=== PATIENT | female | born 1950 | race Caucasian/White ===

== ENCOUNTER → 2016-09-20 | Outpatient (CLI) | payer MEDICARE ==
[2016-09-20 14:38] LABS: Basophils % (A) 1 %; CH 30.2; CHCM 32.8; Eosinophils # (A) 0.1 k/uL (0-0.7); Eosinophils % (A) 2 %; HCT 40.8 % (34.0-46.0); HDW 2.46; HGB 12.9 gm/dL (11.4-16.0); Luc # (Auto) 0.07; Luc % (Auto) 2; Lymphocytes # (A) 1.4 k/uL (1.0-4.8); Lymphocytes % (A) 31 %; MCH 29.3 pg (25.0-35.0); MCHC 31.6 g/dL (31.0-37.0); MCV 92.7 fL (80.0-100.0); Mean Platelet Volume 7.3; Monocytes # (A) 0.3 k/uL (0-1.0); Monocytes % (A) 6 %; Neutrophils # (A) 2.7 k/uL (1.3-7.7); Neutrophils % (A) 59 %; RDW 13.4 % (11.5-15.5); WBC 4.6 k/uL (3.8-10.6); WBC (Perox) 4.94
[2016-09-20 15:01] LABS: ALT 35 U/L (9-52); AST 26 U/L (14-36); Alkaline Phosphatase 83 U/L (38-126); Anion Gap 10 mmol/L; Blood Urea Nitrogen 23 mg/dL (7-17); Calcium 9.3 mg/dL (8.4-10.2); Carbon Dioxide 27 mmol/L (22-30); Chloride 108 mmol/L (98-107); Glucose 122 mg/dL (74-99); Non-African American GFR(MDRD) >60 (>60 ml/min/1.73 sqM); Potassium 3.8 mmol/L (3.5-5.1); Sodium 145 mmol/L (137-145); Total Bilirubin 0.9 mg/dL (0.2-1.3); Total Protein 6.3 g/dL (6.3-8.2)
[2016-09-20 15:42] LABS: Vitamin B12 746 pg/mL (239-931)
== END | disposition home or self-care (01) ==
LOC: LABWHC1 13:47
PROVIDERS: ATTEND Nurse Practitioner Acute Care
DX: G35 Multiple sclerosis (principal); E55.9 Vitamin D deficiency, unspecified
CPT/HCPCS: 36415; 80053; 82306; 82607; 84439; 84443; 84481; 85025

== ENCOUNTER → 2016-11-24 | Outpatient (CLI) | payer MEDICARE ==
--- NOTE | 2016-11-24 13:40 | MM ---
Reason for exam: follow-up at short interval from prior study. Last mammogram was performed 6 months ago. History: Patient is postmenopausal and has history of other cancer at age 54. Family history of breast cancer in aunt. MG discontinued stereo core RT of the right breast, May 16, 2014. Benign excisional biopsy of the left breast, 1989. Took estrogen beginning at age 58. Physical Findings: Nurse did not find any significant physical abnormalities on exam. MG 3D Diag Mammo W/Cad RT CC, MLO, and ML view(s) were taken of the right breast. Prior study comparison: June 02, 2016, right breast MG work up mamm w CAD RT. May 26, 2016, bilateral MG screening mammo w CAD. The breast tissue is heterogeneously dense. This may lower the sensitivity of mammography. No significant new findings when compared with previous films. These results were verbally communicated with the patient and result sheet given to the patient on 11/24/16. ASSESSMENT: Benign, BI-RAD 2 RECOMMENDATION: Return to routine screening mammogram schedule for both breasts. Back on schedule.
[2016-11-25 15:15] LABS: HCV Qualitative Result Not detected (Not detected)
== END | disposition home or self-care (01) ==
LOC: RADMAMWWP 12:38
PROVIDERS: ATTEND Family Medicine
DX: R92.2 Inconclusive mammogram (principal); B17.10 Acute hepatitis C without hepatic coma
CPT/HCPCS: 87522; 36415; G0206; G0279

== ENCOUNTER → 2017-02-03 | Outpatient (CLI) | payer MEDICARE ==
--- NOTE | 2017-02-06 19:25 | MR ---
EXAMINATION TYPE: MR brain wo/w con DATE OF EXAM: 02/03/2017 3:26 PM COMPARISON: 11/24/2015 HISTORY: 66-year-old female with unsteady gait, MS, compare to prior TECHNIQUE: Multiplanar, multisequence images of the brain and brainstem is performed without and with utilizing 12 mL intravenous MultiHance gadolinium contrast. Demyelinating disease protocol with add itional Sagittal Flair sequence performed. FINDINGS: T2 Lesions Present : Yes Approximate Number of Lesions: Moderate to severe confluent burden, too numerous to count. Locations Identified : Pericallosal, callosal, callososeptal, periventricular (including Austin's fin gers) juxtacortical, pontine, right middle cerebral peduncle. Size of Reference Lesion(s): 1. Juxtacortical lesion medial right frontal lobe axial image 20, not significantly changed measurin g 10 x 4 mm versus 9 x 4 mm, previously. 2. A vague confluent area in the right centrum semiovale, posterior frontal lobe, image 22 similar s ized but less defined. 3. A juxtacortical lesion in the anterior right parietal lobe, axial image 15 is minimally smaller me asuring 9 x 3 mm versus 11 x 4 mm, previously. Enhancing Lesion(s) Present: No T1 Hypointense Lesion(s) Present: Yes, moderate to severe confluent burden. Change from Prior: Overall, not significantly changed. Diffusion weighted images demonstrate no evidence of a recent infarct or other diffusion abnormality when correlated with the ADC map. Areas of T2 shine through are evident. There is no worrisome extra-axial fluid collection. There is sulcal prominence or moderate generalized supratentorial volume loss. No hydrocephalus. Midline structures demonstrate normal morphology. The craniocervical junction appears within normal limits. Post contrast images demonstrate no abnormal enhancement. The dural venous sinuses appear patent. There is residual mild mucosal thickening along the floors of the maxillary sinuses, improved from pr ior exam. Mild mucosal thickening posterior right ethmoid air cells. Globes appear intact. IMPRESSION: 1. Redemonstrated moderate to severe confluent burden of MS plaques. The exam is overall stable. A fe w reference lesions were selected and may be minimally smaller or less confluent. 2. No enhancing plaques seen. 3. Similar moderate cerebral atrophy.
== END | disposition home or self-care (01) ==
LOC: RADMRIMAIN 14:22
PROVIDERS: ATTEND Nurse Practitioner Acute Care
DX: G35 Multiple sclerosis (principal); G31.9 Degenerative disease of nervous system, unspecified; G93.89 Other specified disorders of brain; M54.2 Cervicalgia
CPT/HCPCS: 70553; A9577

== ENCOUNTER → 2017-02-04 | Outpatient (CLI) | payer MEDICARE ==
--- NOTE | 2017-02-04 15:39 | MR ---
EXAMINATION TYPE: MR cervical spine wo/w con DATE OF EXAM ORDERED: 02/04/2017 3:21 PM HISTORY: G35 MS M54.2 C CERVICALGIA. 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 FINDINGS: Prevertebral soft tissues are normal. Vertebral body height and alignment are maintained. Atlantoaxial relationships are normal. There is a normal craniocervical junction. Signal within the cord is slightly patchy in the sagittal projection. Definite signal abnormality is not identified on the axial images. There is no abnormal e nhancement following gadolinium. At C2-C3 and C3-4, no discrete abnormality is seen. At C4-C5, there is disc space loss and hypertrophic spondylosis both anteriorly and posteriorly. This is progressed somewhat from previous. There is a mixed spondylitic bar present posteriorly deforming the thecal sac with cord contact but without cord compression. Intervertebral foramina are reasonabl y well-maintained. The facets are reasonably well-maintained. There is mild uncovertebral joint disea se. At C5-C6, there is mild disc space loss. The intervertebral foramina are well maintained. There is a diffuse disc displacement. This mildly deforms the thecal sac without cord contact. The facets are un remarkable. There is mild uncovertebral joint disease. At C6-C7, there is disc space loss and disc desiccation. There is a mixed spondylitic bar present pos teriorly deforming the thecal sac without definite cord contact. The facets are unremarkable. There i s mild uncovertebral joint disease. The intervertebral foramina are reasonably well-maintained. At C7-T1, no definite abnormality is seen. IMPRESSION: 1. SLIGHTLY HETEROGENEOUS SIGNAL WITHIN THE CORD, UNCHANGED FROM PREVIOUS WITHOUT DISCRETE PLAQUES. 2. DEGENERATIVE CHANGE DESCRIBED.
== END | disposition home or self-care (01) ==
LOC: RADMRIMAIN 14:28
PROVIDERS: ATTEND Nurse Practitioner Acute Care
DX: M47.812 Spondylosis without myelopathy or radiculopathy, cervical region (principal)
CPT/HCPCS: 72156; A9577

== ENCOUNTER → 2017-12-09 | Outpatient (CLI) | payer MEDICARE ==
--- NOTE | 2017-12-09 12:46 | ECHOF ---
Referral Reason:R07.89 Atypical chest pain MEASUREMENTS -------- HEIGHT: 165.1 cm WEIGHT: 59.0 kg BP: RVIDd: 2.2 cm (< 3.3) IVSd: 0.9 cm (0.6 - 1.1) LVIDd: 4.2 cm (3.9 - 5.3) LVPWd: 1.0 cm (0.6 - 1.1) IVSs: 1.2 cm LVIDs: 2.8 cm LVPWs: 1.1 cm LA Diam: 3.1 cm (2.7 - 3.8) Ao Diam: 2.9 cm (2.0 - 3.7) AV Cusp: 1.5 cm (1.5 - 2.6) LA Diam: 2.7 cm (2.7 - 3.8) MV EXCURSION: 15.618 mm (> 18.000) MV EF SLOPE: 58 mm/s (70 - 150) EPSS: 1.2 cm MV E Campos: 0.46 m/s MV DecT: 302 ms MV A Campos: 0.66 m/s MV E/A Ratio: 0.70 RAP: 5.00 mmHg RVSP: 12.26 mmHg FINDINGS -------- Sinus rhythm. This was a technically good study. LV size, wall thickness and systolic function are normal, with an EF greater than 55%. The left librado tricular size is normal. The right ventricle is normal in size. The left atrial size is normal. The right atrial size is normal. The aortic valve was not well visualized. Mild mitral regurgitation is present. Mild tricuspid regurgitation present. There is no evidence of pulmonary hypertension. The right v entricular systolic pressure, as measured by Doppler, is 12.26mmHg. There is no pulmonic regurgitation present. The aortic root size is normal. There is no pericardial effusion. CONCLUSIONS -------- 1. LV size, wall thickness and systolic function are normal, with an EF greater than 55%. 2. The left ventricular size is normal. 3. The aortic valve was not well visualized. 4. Mild mitral regurgitation is present. 5. Mild tricuspid regurgitation present. 6. There is no evidence of pulmonary hypertension. 7. The right ventricular systolic pressure, as measured by Doppler, is 12.26mmHg. 8. There is no pulmonic regurgitation present. 9. The aortic root size is normal. 10. There is no pericardial effusion. [employer]ATION HELPER: Alma Delia Vanegas RDCS
--- NOTE | 2017-12-09 12:58 | EST ---
EXERCISE STRESS AGE: 67 SEX: F HT: 65" WT: 130 PROTOCOL: Viktor Cardiolite stress test. STAGE: I DURATION OF EXERCISE: 2.41 HEART RATE REST: 77 BLOOD PRESSURE REST: 153/98 MAXIMUM HEART RATE ACHIEVED: 126 MAXIMUM BLOOD PRESSURE: 201/102 85% MPHR: 131 100% MPHR: 154 METS: 3.6 INDICATIONS: Atypical chest pain. CLINICAL INFORMATION: Baseline EKG revealed normal sinus rhythm without significant ST-T changes. Patient walked for 2 minute 41 seconds. Developed fatigue and shortness of breath. Maximal heart rate was 126 beats per minute. Maximal blood pressure was 201/102. Patient got exhausted, tired and short of breath. This is an inconclusive stress test because of inadequate chronotropic response. Excess capacity was extremely limited. If ischemia is suspected, she will benefit from a pharmacological stress test. MMODL / IJN: [id number] /
== END | disposition home or self-care (01) ==
LOC: RADNMMAIN 10:49
PROVIDERS: ATTEND Family Medicine
DX: I08.1 Rheumatic disorders of both mitral and tricuspid valves (principal); R07.89 Other chest pain; R06.02 Shortness of breath; R53.83 Other fatigue
CPT/HCPCS: 93017; 93306

== ENCOUNTER → 2018-02-07 | Outpatient (CLI) | payer MEDICARE ==
--- NOTE | 2018-02-07 13:35 | MR ---
MRI BRAIN WITH CONTRAST CLINICAL HISTORY: MS follow-up TECHNIQUE: Multiplanar, multisequence imaging of the brain and brainstem is performed without and wit h IV contrast, cc of Gadolinium is administered intravenously. Demyelinating disease protocol with a dditional Sagittal Flair sequence performed. Comparison: 02/03/2017 FINDINGS: T2 Lesions Present : Yes Approximate Number of Lesions: Moderate to severe confluent burden, too numerous to count. Locations Identified : Pericallosal, callosal, callososeptal, periventricular ( including Austin's fi ngers) juxtacortical, pontine, right middle cerebral peduncle Size of Largest Lesion(s): 1. Largest discrete lesion high right frontal lobe measures 1.3 cm versus 1.3 cm image 24. 2 largest discrete lesion left cerebral hemisphere left temporal region measuring 1.0 cm unchanged fr om prior study. Enhancing Lesion(s) Present: Yes, No, N/A Change from Prior: Stable, Increase in number, decrease Diffusion weighted images demonstrate no evidence of a recent infarct or other diffusion abnormality. There is no worrisome extra-axial fluid collection. The ventricular system and cisternal spaces ar e normal in size and appearance. The brain volume is age appropriate. Midline structures demonstrate normal morphology. The craniocervical junction appears within normal limits. Post contrast images demonstrate no abnormal enhancement. The dural venous sinuses appear pa tent. The visualized sinuses are clear and the globes are intact. IMPRESSION: 1. Stable examination with moderate to severe confluent burden of MS plaques. 2. No acute or enhancing plaques are identified. 3. Cerebral atrophy.
== END | disposition home or self-care (01) ==
LOC: RADMRIMAIN 11:49
PROVIDERS: ATTEND Psychiatry & Neurology Neurology
DX: G35 Multiple sclerosis (principal); G31.9 Degenerative disease of nervous system, unspecified
CPT/HCPCS: 82565; 70553; A9581

== ENCOUNTER → 2018-03-17 | Outpatient (CLI) | payer MEDICARE ==
--- NOTE | 2018-03-18 02:48 | MR ---
MRI CERVICAL SPINE and thoracic spine: CLINICAL HISTORY: Follow-up demyelinating disease. TECHNIQUE: Multiplanar, multisequence imaging of the cervical spine and thoracic spine is performed w ithout contrast. . Patient was not cooperative for the entire completion of the exam including axial thoracic images. COMPARISON: Cervical spine 02/04/2017 FINDINGS: The cervical vertebra have normal alignment. There is moderate narrowing of C4-5 disc space with spurring of the endplates anteriorly and posteriorly. There is mild narrowing at C5-6 and C6-7 disc spaces. There is some subtle increased signal on the T2 images in the posterior cervical cord at the C5 level . There is slight increased signal in the cord on the right side at the C2 level. There is increased signal within the cord at T4 level that appears new or increased. The remainder of the thoracic spinal cord has fairly normal signal pattern. There is no thoracic spinal stenosis. The re is no thoracic disc herniation or compression fracture. There is mild anterior spurring in the mid and lower thoracic spine. There is no thoracic paraspinal mass. Thoracic and cervical neural foramin a are fairly well-maintained. IMPRESSION: There are mild spondylotic changes in the cervical and thoracic spine. There is posterior spurring and disc herniation at C4-5. There is developmentally adequate canal and no resultant spinal stenosis. The canal measures 8 mm. There are scattered areas of increased signal in the cervical cord and also thoracic spinal cord at T 4 level suggestive of demyelinating disease. T4 abnormality appears increased compared to previous MR scan. The other foci appear not significantly different.
== END | disposition home or self-care (01) ==
LOC: RADMRIMAIN 19:26
PROVIDERS: ATTEND Psychiatry & Neurology Neurology
DX: M47.893 Other spondylosis, cervicothoracic region (principal); M50.221 Other cervical disc displacement at C4-C5 level; G35 Multiple sclerosis
CPT/HCPCS: 72141; 72146

== ENCOUNTER → 2018-03-31 | Outpatient (CLI) | payer MEDICARE ==
[2018-03-31 20:26] LABS: Hepatitis B Surface AB- Quant 3.5 mIU/mL
== END | disposition home or self-care (01) ==
LOC: LABWHC1 12:33
PROVIDERS: ATTEND Psychiatry & Neurology Neurology
DX: G35 Multiple sclerosis (principal)
CPT/HCPCS: 36415; 86704; 86706; 87340

== ENCOUNTER → 2018-06-06 | Outpatient (CLI) | payer MEDICARE ==
--- NOTE | 2018-06-08 11:44 | MM ---
Reason for exam: screening (asymptomatic). Last mammogram was performed 1 year ago. History: Patient is postmenopausal and has history of other cancer at age 54. Family history of breast cancer in aunt. MG discontinued stereo core RT of the right breast, May 16, 2014. Benign excisional biopsy of the left breast, 1989. Took estrogen beginning at age 58. Physical Findings: A clinical breast exam by your physician is recommended on an annual basis and results should be correlated with mammographic findings. MG 3D Screening Mammo W/Cad Bilateral CC and MLO view(s) were taken. Prior study comparison: June 03, 2017, bilateral MG 3d screening mammo w/cad. November 24, 2016, right breast MG 3d diag mammo w/cad RT. The breast tissue is heterogeneously dense. This may lower the sensitivity of mammography. No significant changes when compared with prior studies. ASSESSMENT: Negative, BI-RAD 1 RECOMMENDATION: Routine screening mammogram of both breasts in 1 year.
== END | disposition home or self-care (01) ==
LOC: RADMAMWWP 12:30
PROVIDERS: ATTEND Family Medicine
DX: Z12.31 Encounter for screening mammogram for malignant neoplasm of breast (principal)
CPT/HCPCS: 77063; 77067

== ENCOUNTER → 2018-11-06 | Outpatient (CLI) | payer MEDICARE ==
[2018-11-06 15:11] LABS: Appearance,Urine Cloudy (Clear); Bacteria,Urine Few /hpf; Bilirubin,Urine Negative (Negative); Blood,Urine Negative (Negative); Color,Urine Yellow; Glucose,Urine (UA) Negative (Negative); Ketones,Urine Negative (Negative); Leukocyte Esterase,Urine Large (Negative); Mucus,Urine Few /hpf; Nitrite,Urine Positive (Negative); Protein,Urine Trace (Negative); RBC,Urine 9 /hpf (0-5); Squamous Epithelial Cell,Urine 2 /hpf (0-4); Urobilinogen,Urine <2.0 mg/dL (<2.0); WBC,Urine 122 /hpf (0-5)
[2018-11-06 15:17] LABS: Basophils % (A) 0 %; Eosinophils # (A) 0.1 k/uL (0-0.7); Eosinophils % (A) 1 %; HCT 43.9 % (34.0-46.0); Lymphocytes % (A) 31 %; MCH 29.5 pg (25.0-35.0); MCHC 31.8 g/dL (31.0-37.0); MCV 92.7 fL (80.0-100.0); Mean Platelet Volume 7.1; Monocytes # (A) 0.4 k/uL (0-1.0); Monocytes % (A) 6 %; Neutrophils # (A) 3.7 k/uL (1.3-7.7); Neutrophils % (A) 59 %; Platelet Count 261 k/uL (150-450); RBC 4.73 m/uL (3.80-5.40); RDW 13.6 % (11.5-15.5); WBC 6.3 k/uL (3.8-10.6)
[2018-11-06 18:48] LABS: Albumin 4.4 g/dL (3.80-4.90); Albumin/Globulin Ratio 2.44 (1.60-3.17); Anion Gap 12.4 mmol/L (4.00-12.00); Calcium 9.8 mg/dL (8.7-10.3); Carbon Dioxide 27.6 mmol/L (21.6-31.8); Globulin 1.8 g/dL (1.6-3.3); Potassium 3.8 mmol/L (3.5-5.5); Total Bilirubin 0.6 mg/dL (0.2-1.2); Total Protein 6.2 g/dL (6.2-8.2)
== END | disposition home or self-care (01) ==
LOC: LABWHC1 13:45
PROVIDERS: ATTEND Psychiatry & Neurology Neurology
DX: Z51.81 Encounter for therapeutic drug level monitoring (principal); Z79.899 Other long term (current) drug therapy
CPT/HCPCS: 36415; 80053; 81001; 85025; 87086

== ENCOUNTER → 2018-12-07 | Outpatient (CLI) | payer MEDICARE ==
[2018-12-07 11:25] LABS: Basophils % (A) 0 %; Eosinophils # (A) 0.1 k/uL (0-0.7); Eosinophils % (A) 2 %; HCT 41.5 % (34.0-46.0); HGB 13.4 gm/dL (11.4-16.0); Lymphocytes # (A) 1.4 k/uL (1.0-4.8); Lymphocytes % (A) 28 %; MCH 29.6 pg (25.0-35.0); MCHC 32.2 g/dL (31.0-37.0); MCV 92.1 fL (80.0-100.0); Mean Platelet Volume 7.3; Monocytes # (A) 0.3 k/uL (0-1.0); Monocytes % (A) 6 %; Neutrophils # (A) 3.1 k/uL (1.3-7.7); Neutrophils % (A) 62 %; Platelet Count 269 k/uL (150-450); RBC 4.51 m/uL (3.80-5.40)
[2018-12-07 17:18] LABS: Albumin 4.2 g/dL (3.80-4.90); Albumin/Globulin Ratio 2.63 (1.60-3.17); Anion Gap 11.2 mmol/L (4.00-12.00); Calcium 9.5 mg/dL (8.7-10.3); Carbon Dioxide 24.8 mmol/L (21.6-31.8); Globulin 1.6 g/dL (1.6-3.3); Total Bilirubin 0.9 mg/dL (0.2-1.2); Total Protein 5.8 g/dL (6.2-8.2)
== END ==
LOC: LABWHC1 10:25
PROVIDERS: ATTEND Psychiatry & Neurology Neurology
DX: G35 Multiple sclerosis (principal); T50.905A Adverse effect of unspecified drugs, medicaments and biological substances, initial encounter
CPT/HCPCS: 36415; 80053; 85025

== ENCOUNTER 2019-03-03 12:28 | Emergency (ER) | payer MEDICARE ==
[2019-03-03 12:56] VITALS: RESP 16; TEMP 97.6
[2019-03-03] MEDS ORDERED: LIDOCAINE 1% INJ 10MG/ML (20 ML MDV) SQ ONE (13:46)
[2019-03-03] MEDS ORDERED: DIPH,PERTUS(ACELL)TETVAC-LF 0.5 ML VIAL IM ONE (14:30)
--- NOTE | 2019-03-03 14:31 | ED ---
Fall HPI - General Chief Complaint: Fall Stated Complaint: fall Time Seen by Provider: 03/03/19 13:29 Source: patient Mode of arrival: wheelchair - History of Present Illness Initial Comments: Patient is a 68-year-old female with history of multiple sclerosis who presents emergency Department after fall and laceration on the forehead. Patient reports earlier today she was walking and her daughter when she tripped and fell on the ground. Patient denies loss of consciousness time of incident. Patient reports the pain is localized to the left frontal region and does not radiate anywhere. Patient reports the pain is throbbing and rates it a 5. Patient reports a laceration in the region the make contact with the ground. Patient is not on blood thinners. Patient is unaware of her tetanus status. Patient denies taking medication to relieve the pain. Patient denies nausea, vomiting, chest pain, shortness of breath, paresthesia or gait instability. - Related Data Home Medications Medication Instructions Recorded Confirmed Tolterodine ER [Detrol LA] 4 mg PO DAILY 03/11/14 01/01/19 Simvastatin [Zocor] 20 mg PO HS 09/29/15 01/01/19 Fesoterodine Fumarate [Toviaz] 8 mg PO DAILY 12/18/18 01/01/19 Ocrevus 30 mg pe PO DAILY 12/18/18 01/01/19 Oxybutynin Xl [Ditropan XL] 5 mg PO TID 12/18/18 01/01/19 Allergies Allergy/AdvReac Type Severity Reaction Status Date / Time No Known Allergies Allergy Verified 03/03/19 12:56 Review of Systems ROS Statement: Those systems with pertinent positive or pertinent negative responses have been documented in the HPI. ROS Other: All systems not noted in ROS Statement are negative. Past Medical History Past Medical History: Neurologic Disorder Additional Past Medical History / Comment(s): MS History of Any Multi-Drug Resistant Organisms: None Reported Past Surgical History: Section, Orthopedic Surgery, Tonsillectomy Additional Past Surgical History / Comment(s): left knee replacement Past Anesthesia/Blood Transfusion Reactions: No Reported Reaction Past Psychological History: No Psychological Hx Reported Smoking Status: Former smoker General Exam Limitations: no limitations General appearance: alert, in no apparent distress Head exam: Present: normocephalic. Absent: atraumatic (Hematoma on the left frontal region. 1.5 cm laceration.), normal inspection Eye exam: Present: normal appearance, PERRL, EOMI Pupils: Present: normal accommodation ENT exam: Present: normal exam, normal oropharynx, mucous membranes moist Neck exam: Present: normal inspection, full ROM. Absent: tenderness Respiratory exam: Present: normal lung sounds bilaterally Cardiovascular Exam: Present: regular rate, normal rhythm, normal heart sounds Extremities exam: Present: normal inspection, full ROM Back exam: Present: normal inspection, full ROM Neurological exam: Present: alert, oriented X3 Psychiatric exam: Present: normal affect, normal mood Skin exam: Present: warm, intact, normal color Course Vital Signs 03/03/19 03/03/19 12:53 15:19 Temperature 97.6 F Pulse Rate 59 L 69 Respiratory 16 16 Rate Blood Pressure 138/70 133/54 O2 Sat by Pulse 100 96 Oximetry Procedures - Laceration Laceration #1 Consent Obtained: verbal consent Indication: laceration Site: scalp Size (cm): 2 Description: linear Depth: simple, single layer Anesthetic Used: lidocaine 1% Anesthesia Technique: local infiltration Amount (mls): 5 Pre-repair: irrigated extensively Type of Sutures: nylon Size of Sutures: 4-0 Number of Sutures: 3 Technique: simple, interrupted Patient Tolerated Procedure: well Medical Decision Making - Medical Decision Making Patient is a 68-year-old female presents to the emergency Department after fall laceration to her head. Tetanus prophylaxis was administered. The laceration site was sutured using 3 sutures. At this time a CT is not warranted. Patient advised to return to emergency department for suture removal in 10-14 days. Patient advised to return to emergency department if symptoms worsen. Patient advised to follow primary care. Case discussed with physician. Disposition Clinical Impression: Laceration Disposition: HOME SELF-CARE Condition: Stable Instructions (If sedation given, give patient instructions): Care For Your Stitches (DC), Laceration (DC), Fall Prevention for Older Adults (ED) Additional Instructions: Please follow proper wound care structures. Please return to emergency department in 10-14 days for suture removal. Please follow up with primary care. Patient to emergency department if symptoms worsen. Is patient prescribed a controlled substance at d/c from ED?: No Referrals: Shady Vivas DO [Primary Care Provider] - 1-2 days Time of Disposition: 14:31
[2019-03-03 16:54] VITALS: BP 133/54; PULSE 69
== END 2019-03-03 15:19 | disposition home or self-care (01) ==
LOC: EC 12:28
DX: S01.01XA Laceration without foreign body of scalp, initial encounter (principal); G35 Multiple sclerosis; Z23 Encounter for immunization; Z96.652 Presence of left artificial knee joint; Z87.891 Personal history of nicotine dependence; Z79.899 Other long term (current) drug therapy; W01.0XXA Fall on same level from slipping, tripping and stumbling without subsequent striking against object, initial encounter; Y93.01 Activity, walking, marching and hiking; Y92.89 Other specified places as the place of occurrence of the external cause
CPT/HCPCS: 12001; 90471; 90715; 99282

== ENCOUNTER → 2019-04-07 | Outpatient (CLI) | payer MEDICARE ==
--- NOTE | 2019-04-09 00:16 | MR ---
EXAMINATION TYPE: MR brain/cspine wo/w DATE OF EXAM: 04/07/2019 COMPARISON: 01/29/1918 and 03/17/2018 HISTORY: MS TECHNIQUE: Multiplanar, multisequence images of the brain and brainstem and cervical spine is performed without and with IV contrast, utilizing 6 mL intravenous Gadavist . FINDINGS: There is coalescent patchy increased signal in the periventricular white matter with multip le nodular foci that measure up to 1.5 cm. There is no midline shift. There is no mass effect. There is no sign of intracranial hemorrhage. There is no evidence of cortical infarct. There are white farooq er lesions extending into the melissa-white matter junction of the posterior frontal lobes bilaterally. There are few smaller scattered foci of increased signal on the FLAIR images at the melissa-white matter junction of the temporal and occipital lobes. The brainstem is intact. There is small fluid level in the posterior nasopharynx. There is mild thinn ing of the corpus callosum. Sella turcica is intact. There is mild mucosal thickening in the frontal sinuses. Cervical vertebra have normal alignment. There is some degenerative disc space narrowing at C4-5 C5-6 C6-7 with spurring of the endplates and small posterior disc herniations at C4-5 and C6-7. The canal is narrowed to 7 mm at C4-5 which is the narrowest point. There is mild increased signal within the cervical cord at the C5-6 level on the T2 images. I see no pathologic cord enhancement. There is no bony destructive process. IMPRESSION: Extensive white matter changes in the brain as above consistent with demyelinating diseas e unchanged compared to previous exam of 01/29/1918. No evidence of any significant new disease. Spondylotic changes in the cervical spine with a mild 7 mm C4-5 spinal stenosis unchanged compared to old exam. Increased signal in the cervical cord at the C5-6 level in the segment without narrowing o f the spinal canal is consistent with demyelinating disease unchanged compared to old exam.
== END | disposition home or self-care (01) ==
LOC: RADMRIMAIN 11:12
PROVIDERS: ATTEND Psychiatry & Neurology Neurology
DX: G37.9 Demyelinating disease of central nervous system, unspecified (principal); R90.89 Other abnormal findings on diagnostic imaging of central nervous system; M48.02 Spinal stenosis, cervical region; R27.0 Ataxia, unspecified
CPT/HCPCS: 70553; 72156; A9585

== ENCOUNTER → 2019-05-25 | Outpatient (CLI) | payer MEDICARE ==
--- NOTE | 2019-05-27 14:54 | MR ---
EXAMINATION TYPE: MR thoracic spine wo con DATE OF EXAM: 05/25/2019 COMPARISON: MRI of thoracic spine March 17, 2018 HISTORY: Multiple sclerosis TECHNIQUE: Multiplanar, multisequence imaging of thoracic spine is performed without contrast, IV con trast is not given as patient refused. FINDINGS: There is slight S-shaped scoliotic curvature levoconvex centered upper thoracic spine and d extroconvex centered upper lumbar spine redemonstrated. Spinal cord shows persistent normal caliber a nd course. There is persistent ovoid T2 hyperintense focus sagittal image 8 centered T4 level. No def initive new cord lesions. Mild anterior wedging T12 level redemonstrated otherwise vertebral body hei ghts remain satisfactory. Some reversal of normal curvature at thoracolumbar junction redemonstrated on sagittal images. Bone marrow signal intensity is maintained. Mild to moderate multilevel anterior spurring again seen. Review of the axial images shows no significant spinal canal stenosis or neural foraminal narrowing a t any thoracic level. Suspected T4 spinal cord lesion not as well seen on axial images. Visualized th orax and upper abdomen show no suspicious abnormality. IMPRESSION: Persistent demyelinating disease involvement suspected T4 level. No definitive new lesion s. Patient refused IV contrast as ordered.
== END | disposition home or self-care (01) ==
LOC: RADMRIMAIN 16:06
PROVIDERS: ATTEND Psychiatry & Neurology Neurology
DX: G35 Multiple sclerosis (principal); R27.0 Ataxia, unspecified
CPT/HCPCS: 72146

== ENCOUNTER → 2019-07-16 | Outpatient (CLI) | payer MEDICARE ==
--- NOTE | 2019-07-17 10:37 | MM ---
Reason for exam: screening (asymptomatic). Last mammogram was performed 1 year and 1 month ago. History: Patient is postmenopausal and has history of other cancer at age 54. Family history of breast cancer in aunt. MG discontinued stereo core RT of the right breast, May 16, 2014. Benign excisional biopsy of the left breast, 1989. Took estrogen beginning at age 58. Physical Findings: A clinical breast exam by your physician is recommended on an annual basis and results should be correlated with mammographic findings. MG 3D Screening Mammo W/Cad Bilateral CC and MLO view(s) were taken. Prior study comparison: June 06, 2018, bilateral MG 3d screening mammo w/cad. June 03, 2017, bilateral MG 3d screening mammo w/cad. The breast tissue is heterogeneously dense. This may lower the sensitivity of mammography. There are benign appearing round dystrophic calcifications in the left breast. There is no discrete abnormality. ASSESSMENT: Benign, BI-RAD 2 RECOMMENDATION: Routine screening mammogram of both breasts in 1 year.
== END | disposition home or self-care (01) ==
LOC: RADMAMWWP 10:51
PROVIDERS: ATTEND Family Medicine
DX: Z12.31 Encounter for screening mammogram for malignant neoplasm of breast (principal)
CPT/HCPCS: 77063; 77067

== ENCOUNTER → 2020-04-29 | Outpatient (CLI) | payer MEDICARE ==
[2020-04-29 13:35] LABS: Basophils % (A) 0 %; Eosinophils # (A) 0.1 k/uL (0-0.7); Eosinophils % (A) 2 %; HCT 42.3 % (34.0-46.0); HGB 13.5 gm/dL (11.4-16.0); Lymphocytes # (A) 1.8 k/uL (1.0-4.8); Lymphocytes % (A) 29 %; MCH 30.1 pg (25.0-35.0); MCHC 31.8 g/dL (31.0-37.0); MCV 94.8 fL (80.0-100.0); Mean Platelet Volume 6.7; Monocytes # (A) 0.4 k/uL (0-1.0); Monocytes % (A) 7 %; Neutrophils # (A) 3.6 k/uL (1.3-7.7); Neutrophils % (A) 60 %; Platelet Count 293 k/uL (150-450); RBC 4.47 m/uL (3.80-5.40); RDW 13.1 % (11.5-15.5)
[2020-04-29 22:34] LABS: African American GFR (CKD) 87.8 (60.0-200.0); Albumin 4.4 g/dL (3.80-4.90); Albumin/Globulin Ratio 2.2 (1.60-3.17); Anion Gap 10.5 mmol/L (4.00-12.00); BUN/Creat Ratio 17.5 Ratio (12.00-20.00); Calcium 9.4 mg/dL (8.7-10.3); Carbon Dioxide 24.5 mmol/L (21.6-31.8); Non-African American GFR(CKD) 75.8 (60.0-200.0); Potassium 4.6 mmol/L (3.5-5.5); Total Bilirubin 0.7 mg/dL (0.2-1.2); Total Protein 6.4 g/dL (6.2-8.2)
== END | disposition home or self-care (01) ==
LOC: LABWHC1 11:39
PROVIDERS: ATTEND Psychiatry & Neurology Neurology
DX: Z51.81 Encounter for therapeutic drug level monitoring (principal)
CPT/HCPCS: 36415; 80053; 85025

== ENCOUNTER → 2020-07-21 | Outpatient (CLI) | payer MEDICARE ==
--- NOTE | 2020-07-22 08:52 | BD ---
EXAMINATION TYPE: Axial Bone Density DATE OF EXAM: 07/21/2020 COMPARISON: NONE CLINICAL HISTORY: Height: 62 IN Weight: 134 LBS FRAX RISK QUESTIONS: Secondary Osteoporosis: 3. Menopause before 45: PARTIAL HYST AGE 44 RISK FACTORS HISTORY OF: Active: LIMITED Postmenopausal woman: PARTIAL HYST AGE 44 Take estrogen and/or progesterone medications: NOT NOW How long: TOOK FROM AGE [age] MEDICATIONS: Additional Medications: VIT D, MULTI VIT, BLADDER MEDS, EXAM MEASUREMENTS: Bone mineral densitometry was performed using the [employer] System. Bone mineral density as measured about the Lumbar spine is: ----- L1-L4(G/cm2): 1.025 T Score Values are as follows: ----- L2: -1.7 ----- L3: -0.8 ----- L4: -0.4 ----- L1-L4: -1.3 Bone mineral density BASELINE Bone mineral density about the R hip (g/cm2): 0.700 Bone mineral density about the L hip (g/cm2): 0.692 T Score values are as follows: -----R Neck: -2.4 -----L Neck: -2.5 -----R Total: -2.9 -----L Total: -3.1 Bone mineral density BASELINE IMPRESSION: Osteoporosis. NOTE: T-SCORE=SD OF THE YOUNG ADULT MEAN.
--- NOTE | 2020-07-22 13:32 | MM ---
Reason for exam: screening (asymptomatic). Last mammogram was performed 1 year ago. History: Patient is postmenopausal and has history of other cancer at age 54. Family history of breast cancer in aunt. MG discontinued stereo core RT of the right breast, May 16, 2014. Benign excisional biopsy of the left breast, 1989. Took estrogen beginning at age 58. Physical Findings: A clinical breast exam by your physician is recommended on an annual basis and results should be correlated with mammographic findings. MG 3D Screening Mammo W/Cad Bilateral CC and MLO view(s) were taken. Prior study comparison: July 16, 2019, bilateral MG 3d screening mammo w/cad. June 06, 2018, bilateral MG 3d screening mammo w/cad. The breast tissue is heterogeneously dense. This may lower the sensitivity of mammography. Nodular asymmetric density central anterior right CC view is more defined. ASSESSMENT: Incomplete: need additional imaging evaluation, BI-RAD 0 RECOMMENDATION: Special view mammogram of the right breast. (3D) If lesion persists on supplemental views, image directed ultrasound is recommended. [facility] will attempt to contact patient to return for supplemental views and ultrasound if indicated.
== END | disposition home or self-care (01) ==
LOC: RADMAMWWP 14:07
PROVIDERS: ATTEND Family Medicine
DX: Z12.31 Encounter for screening mammogram for malignant neoplasm of breast (principal); M81.0 Age-related osteoporosis without current pathological fracture
CPT/HCPCS: 77063; 77067; 77080

== ENCOUNTER → 2020-08-06 | Outpatient (CLI) | payer MEDICARE ==
--- NOTE | 2020-08-06 10:53 | MM ---
Reason for exam: additional evaluation requested from abnormal screening. Last mammogram was performed 1 month ago. History: Patient is postmenopausal and has history of other cancer at age 54. Family history of breast cancer in aunt. MG discontinued stereo core RT of the right breast, May 16, 2014. Benign excisional biopsy of the left breast, 1989. Took estrogen beginning at age 58. Physical Findings: Nurse did not find any significant physical abnormalities on exam. MG 3D Work Up W/Cad RT Spot compression CC, spot compression MLO, and LM view(s) were taken of the right breast. Prior study comparison: July 21, 2020, bilateral MG 3d screening mammo w/cad. July 16, 2019, bilateral MG 3d screening mammo w/cad. There is no discrete abnormality including area of concern. These results were verbally communicated with the patient and result sheet given to the patient on 08/06/20. ASSESSMENT: Negative, BI-RAD 1 RECOMMENDATION: Return to routine screening mammogram schedule for both breasts.
== END | disposition home or self-care (01) ==
LOC: RADMAMWWP 09:59
PROVIDERS: ATTEND Family Medicine
DX: R92.8 Other abnormal and inconclusive findings on diagnostic imaging of breast (principal)
CPT/HCPCS: 77065; G0279; 77061

== ENCOUNTER 2021-03-27 20:13 | Emergency (ER) | payer OTHER, MEDICARE ==
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
[2021-03-27] MEDS ORDERED: ACET/COD 300 MG/30 MG STARTER PACK 6 TAB BTL PO STA (21:28)
[2021-03-27 21:45] VITALS: BP 160/89; PULSE 75; RESP 18; TEMP 98.2
== END 2021-03-27 21:45 | disposition home or self-care (01) ==
LOC: EC 20:13
DX: S63.501A Unspecified sprain of right wrist, initial encounter (principal); V89.2XXA Person injured in unspecified motor-vehicle accident, traffic, initial encounter; Z87.891 Personal history of nicotine dependence
CPT/HCPCS: 70450; 72125; 99284

== ENCOUNTER → 2021-04-10 | Outpatient (CLI) | payer OTHER ==
--- NOTE | 2021-04-10 13:19 | XR ---
EXAMINATION TYPE: XR hand complete RT DATE OF EXAM: 04/10/2021 COMPARISON: NONE HISTORY: Pain TECHNIQUE: Three views are submitted. FINDINGS: The osseous structures are intact. Severe arthropathy first carpometacarpal joint. Diffuse osteopenia . Arthropathy of all DIP joints. No erosive changes. Arthropathy of the radial ulnar joint and radioc arpal joint and first MCP joint. IMPRESSION: 1. No definite acute fracture or dislocation if symptoms persist, follow-up study in 7 to 10 days wo uld be suggested to severe arthropathy first carpal metacarpal joint in a pattern typical of osteoart hritis.
--- NOTE | 2021-04-10 13:20 | XR ---
EXAMINATION TYPE: XR wrist complete RT DATE OF EXAM: 04/10/2021 COMPARISON: NONE HISTORY: Pain TECHNIQUE: Four views submitted. FINDINGS: The osseous structures are intact. Severe arthropathy of the first carpal metacarpal joint with diffu se osteopenia. Arthropathy of the first MCP joint and radioulnar joint.. IMPRESSION: 1. No definite acute fracture or dislocation if symptoms persist, follow-up study in 7 to 10 days wo uld be suggested
== END | disposition home or self-care (01) ==
LOC: RADXRMAIN 12:36
PROVIDERS: ATTEND Family Medicine
DX: M18.11 Unilateral primary osteoarthritis of first carpometacarpal joint, right hand (principal); M85.841 Other specified disorders of bone density and structure, right hand

== ENCOUNTER → 2021-06-01 | Outpatient (CLI) | payer MEDICARE ==
[2021-06-01 20:23] LABS: Basophils # (A) 0.01 X 10*3/uL (0.00-0.10); Basophils % (A) 0.1 %; Eosinophils # (A) 0.11 X 10*3/uL (0.04-0.35); Eosinophils % (A) 1.6 %; HCT 40.9 % (37.2-46.3); Lymphocytes # (A) 1.87 X 10*3/uL (0.90-5.00); Lymphocytes % (A) 27.1 %; MCH 30.4 pg (27.0-32.0); MCHC 31.8 g/dL (32.0-37.0); MCV 95.8 fL (80.0-97.0); Mean Platelet Volume 9.8 fL (9.5-12.2); Monocytes # (A) 0.72 X 10*3/uL (0.20-1.00); Monocytes % (A) 10.4 %; Neutrophils # (A) 4.17 X 10*3/uL (1.80-7.70); Neutrophils % (A) 60.5 %; Platelet Count 272 X 10*3/uL (140-440); RBC 4.27 X 10*6/uL (4.10-5.20); RDW 13.2 % (11.5-14.5)
[2021-06-01 21:59] LABS: African American GFR (CKD) 102.5 (60.0-200.0); Albumin 4.3 g/dL (3.80-4.90); Albumin/Globulin Ratio 2.15 (1.60-3.17); Anion Gap 7.8 mmol/L (4.00-12.00); BUN/Creat Ratio 17.14 Ratio (12.00-20.00); Calcium 9.4 mg/dL (8.7-10.3); Carbon Dioxide 28.2 mmol/L (21.6-31.8); Non-African American GFR(CKD) 88.4 (60.0-200.0); Potassium 4.3 mmol/L (3.5-5.5); Total Bilirubin 1.1 mg/dL (0.2-1.2); Total Protein 6.3 g/dL (6.2-8.2)
[2021-06-01 22:08] LABS: T4, Free (Free Thyroxine) 1.1 ng/dL (0.80-1.80)
== END | disposition home or self-care (01) ==
LOC: LABWHC1 11:01
PROVIDERS: ATTEND Psychiatry & Neurology Neurology
DX: E53.9 Vitamin B deficiency, unspecified (principal); G35 Multiple sclerosis; T50.995A Adverse effect of other drugs, medicaments and biological substances, initial encounter; R53.83 Other fatigue
CPT/HCPCS: 36415; 80053; 82306; 82607; 84439; 84443; 85025

== ENCOUNTER → 2021-07-21 | Outpatient (CLI) | payer MEDICARE ==
--- NOTE | 2021-07-21 14:29 | MR ---
EXAMINATION TYPE: MR brain/cspine wo/w DATE OF EXAM: 07/21/2021 COMPARISON: MRI Brain and cervical spine with and without contrast 04/07/2019. HISTORY: MS, weakness. TECHNIQUE: Multiplanar, multisequence images of the brain and brainstem is performed without and with IV contras t, utilizing 6 mL intravenous Gadavist gadolinium contrast is administered intravenously. Demyelinat ing disease protocol with additional Sagittal Flair sequence performed. FINDINGS: T2 Lesions Present : Yes Approximate Number of Lesions: Difficult to accurately count due to focal and confluent appearance Locations Identified : Greatest confluent appearance deep and periVentricular level redemonstrated. Size of Reference Lesion(s): 1. 1.4 x 0.7 x 1.2 cm high deep right frontal lesion on axial image 24 and sagittal image 17 stable Enhancing Lesion(s) Present: No T1 Hypointense Lesion(s) Present: Yes Change from Prior: Stable, Increase in number, decrease Diffusion weighted images demonstrate no evidence of a recent infarct or other diffusion abnormality. There is no worrisome extra-axial fluid collection. The ventricular system and cisternal spaces ar e normal in size and appearance. The brain volume is age appropriate. Midline structures demonstrate normal morphology. The craniocervical junction appears within normal limits. Post contrast images demonstrate no abnormal enhancement. The dural venous sinuses appear pa tent. Small mucous retention cyst or polyp in inferior right maxillary sinus redemonstrated. IMPRESSION: Fairly severe nonspecific white matter changes redemonstrated. No new enhancing lesions c learly seen. MRI CERVICAL SPINE: FINDINGS: Sagittal images of the cervical spine show the craniocervical junction to the main within n ormal limits. There are subtle area of increased signal in the posterior aspect of the spinal cord at C5-C6 level sagittal image 7 which is similar to prior. Vertebral alignment is stable and straighte sharmin. The vertebral body heights are normal. Moderate disc space narrowing and spurring C4-C5 level . Mild disc space narrowing and moderate anterior spurring C6-C7 level The bone marrow signal intens ity is within normal limits. No abnormal enhancement or enhancing lesions. Axial images show C2-C3 levels remain within normal limits. Axial images at C3-C4 level redemonstrated uncovertebral facet degenerative changes causing mild bila teral neural foraminal narrowing. Axial images at C4-C5 level show largest spur disc complex effacing the anterior thecal sac up to librado tral surface of spinal cord which is slightly effaced and flattened similar to prior. There is uncove rtebral facet degenerative changes causing [id number] bilateral neural foraminal narrowing. No significant change from prior. Axial images at C5-C6 level shows uncovertebral facet spurring causing mild bilateral neural foramina l narrowing. Subtle increased posterior cord signal is confirmed. Axial images at C6-C7 level posterior broad-based spur disc complex effacing the anterior thecal sac and causing mild/moderate left greater than right bilateral neural foraminal narrowing similar to tiny or. Axial images at C7-T1 levels remain within normal limits. IMPRESSION: Stable area of demyelinating disease involvement posterior C5-C6 level. Stable multilevel degenerative changes greatest at C4-C5 and C6-C7 levels as detailed above.
== END | disposition home or self-care (01) ==
LOC: RADMRIMAIN 11:30
PROVIDERS: ATTEND Psychiatry & Neurology Neurology
DX: G35 Multiple sclerosis (principal); M47.812 Spondylosis without myelopathy or radiculopathy, cervical region; M99.71 Connective tissue and disc stenosis of intervertebral foramina of cervical region
CPT/HCPCS: 70553; 72156; A9585

== ENCOUNTER → 2021-07-22 | Outpatient (CLI) | payer MEDICARE ==
--- NOTE | 2021-07-22 15:24 | MR ---
EXAMINATION TYPE: MR thoracic spine wo/w con DATE OF EXAM: 07/22/2021 COMPARISON: Brain and cervical spine 07/21/2021 HISTORY: 70-year-old female G35, MS, weakness Technique: Multiplanar, multisequence images of the thoracic spine were obtained before and after adm inistration of 6 mL intravenous Gadavist gadolinium contrast. Demyelinating disease protocol was uti lized with the addition of a sagittal PD sequence. FINDINGS: Vertebral body heights are preserved. Degenerative grade 1 anterolisthesis T10-T11. Trace grade 1 anterolisthesis T11-T12. Remaining alignm ent is maintained. Mild multilevel degenerative disc disease with very minimal disc desiccation. Minimal anterior wedging T11 secondary to remote superior endplate deformity. Slight 20% anterior hei ght loss and minimal retropulsion into the ventral spinal canal. Disc bulges impress on the ventral thecal sac at both T10-T11 and T11-T12 without significant spinal canal stenosis. There is mild bilateral neuroforaminal stenosis at T10-T11. No large focal disc herniation or significant spinal canal stenosis. No abnormal enhancement within the spinal canal. There is focal increased signal within the right hemicord at the T4 level, sagittal image 6 and axial series 1001 image 9. Benign fatty matrix hemangioma T6 vertebral body. Normal course and caliber of the thoracic spinal cord. Reversal of the normal lower thoracic kyphosis. IMPRESSION: 1. Small area of demyelinating disease within the right hemicord at the T4 level. No enhancing plaque s identified. 2. Old superior endplate deformity T11. There is minimal impression on the ventral thecal sac at T10- T11 and T11-T12 but without significant spinal canal stenosis. 3. Mild multilevel degenerative disc disease. Degenerative grade 1 anterolisthesis T10-T11 and T11-T1 2. 4. Mild bilateral neuroforaminal stenosis at T10-T11.
== END | disposition home or self-care (01) ==
LOC: RADMRIMAIN 10:59
PROVIDERS: ATTEND Psychiatry & Neurology Neurology
DX: M51.34 Other intervertebral disc degeneration, thoracic region (principal); M43.14 Spondylolisthesis, thoracic region; M99.62 Osseous and subluxation stenosis of intervertebral foramina of thoracic region
CPT/HCPCS: 72157; A9585

== ENCOUNTER → 2021-08-27 | Outpatient (CLI) | payer MEDICARE ==
--- NOTE | 2021-08-27 13:48 | MM ---
Reason for exam: screening (asymptomatic). Last mammogram was performed 1 year and 1 month ago. History: Patient is postmenopausal and has history of other cancer at age 54. Family history of breast cancer in aunt. MG discontinued stereo core RT of the right breast, May 16, 2014. Benign excisional biopsy of the left breast, 1989. Took estrogen beginning at age 58. Physical Findings: A clinical breast exam by your physician is recommended on an annual basis and results should be correlated with mammographic findings. MG 3D Screening Mammo W/Cad Bilateral CC and MLO view(s) were taken. Prior study comparison: August 06, 2020, right breast MG 3d work up w/cad RT. July 21, 2020, bilateral MG 3d screening mammo w/cad. The breast tissue is heterogeneously dense. This may lower the sensitivity of mammography. There are benign appearing round calcifications in the right breast. There is no discrete abnormality. ASSESSMENT: Benign, BI-RAD 2 RECOMMENDATION: Routine screening mammogram of both breasts in 1 year.
== END | disposition home or self-care (01) ==
LOC: RADMAMWWP 10:45
PROVIDERS: ATTEND Family Medicine
DX: Z12.31 Encounter for screening mammogram for malignant neoplasm of breast (principal); Z80.3 Family history of malignant neoplasm of breast; Z78.0 Asymptomatic menopausal state
CPT/HCPCS: 77063; 77067

== ENCOUNTER 2022-08-23 10:40 | Emergency (ER) | payer MEDICARE ==
[2022-08-23 11:05] VITALS: BP 118/62; PULSE 90; TEMP 98.3
--- NOTE | 2022-08-23 12:05 | XR ---
EXAMINATION TYPE: XR chest 2V DATE OF EXAM: 08/23/2022 COMPARISON: 12/10/2018 HISTORY: Shortness of breath TECHNIQUE: Frontal and lateral views of the chest are obtained. FINDINGS: Scattered senescent parenchymal changes noted. Hyperinflation compatible with COPD. Interstitial prominence about the right midlung zone and left infrahilar region may reflect developin g infiltrate. Correlate clinically. Heart size is stable. Mediastinal structures are stable and grossly unremarkable. No evidence for hilar prominence. Degenerative changes dorsal spine. IMPRESSION: 1. Interstitial prominence about the right midlung zone and left infrahilar region may reflect develo ping infiltrate. Correlate clinically.
--- NOTE | 2022-08-23 12:17 | ED ---
URI HPI - General Chief Complaint: Upper Respiratory Infection Stated Complaint: poss flu Time Seen by Provider: 08/23/22 11:25 Source: patient, RN notes reviewed Mode of arrival: wheelchair Limitations: no limitations - History of Present Illness Initial Comments: 71-year-old female presents emergency Department with chief complaint of cough and cold like symptoms. Patient states she's been sick for several days. Patient believes that she picked up her family with some her symptoms. Patient states she has a cough is mildly productive and increasing nasal congestion, some mild sore throat. Patient denies fevers chills no prior lung disease, denies chest pain does admit to some mild body aches, subjective fevers chills patient denies any nausea vomiting diarrhea constipation patient offers no other associated complaints. Patient denies any abdominal complaints. - Related Data Home Medications Medication Instructions Recorded Confirmed Oxybutynin Xl [Ditropan XL] 5 mg PO TID PRN 12/18/18 03/27/21 Loratadine 10 mg PO DAILY 03/27/21 03/27/21 Simvastatin [Zocor] 20 mg PO DAILY 03/27/21 03/27/21 Allergies Allergy/AdvReac Type Severity Reaction Status Date / Time No Known Allergies Allergy Verified 08/23/22 11:04 Review of Systems ROS Statement: Those systems with pertinent positive or pertinent negative responses have been documented in the HPI. ROS Other: All systems not noted in ROS Statement are negative. Past Medical History Past Medical History: Neurologic Disorder Additional Past Medical History / Comment(s): MS History of Any Multi-Drug Resistant Organisms: None Reported Past Surgical History: Section, Orthopedic Surgery, Tonsillectomy Additional Past Surgical History / Comment(s): left knee replacement Past Anesthesia/Blood Transfusion Reactions: No Reported Reaction Past Psychological History: No Psychological Hx Reported Smoking Status: Former smoker Past Alcohol Use History: Rare Past Drug Use History: None Reported General Exam Limitations: no limitations General appearance: alert, in no apparent distress Head exam: Present: atraumatic, normocephalic, normal inspection Eye exam: Present: normal appearance, PERRL, EOMI. Absent: scleral icterus, conjunctival injection, periorbital swelling ENT exam: Present: normal exam, normal oropharynx, mucous membranes moist Neck exam: Present: normal inspection, full ROM. Absent: tenderness, meningismus, lymphadenopathy Respiratory exam: Present: normal lung sounds bilaterally. Absent: respiratory distress, wheezes, rales, rhonchi, stridor Cardiovascular Exam: Present: regular rate, normal rhythm, normal heart sounds. Absent: systolic murmur, diastolic murmur, rubs, gallop, clicks GI/Abdominal exam: Present: soft, normal bowel sounds. Absent: distended, tenderness, guarding, rebound, rigid Back exam: Absent: CVA tenderness (R), CVA tenderness (L) Neurological exam: Present: alert Skin exam: Present: warm, dry, intact, normal color. Absent: rash Course Vital Signs 08/23/22 11:03 Temperature 98.3 F Pulse Rate 90 Respiratory 18 Rate Blood Pressure 118/62 O2 Sat by Pulse 96 Oximetry Medical Decision Making - Medical Decision Making 71-year-old female presented for cough and cold-like symptoms. Chest x-ray interpreted possible early infiltrate, patient is COVID-19 positive. Patient has no hypoxia. Patient will be discharged in stable condition return parameters were discussed. - Lab Data Lab Results 08/23/22 Range/Units 11:08 Influenza Type A (PCR) Not Detected (Not Detectd) Influenza Type B (PCR) Not Detected (Not Detectd) RSV (PCR) Not Detected (Not Detectd) SARS-CoV-2 (PCR) Detected A (Not Detectd) Disposition Clinical Impression: COVID-19 Disposition: HOME SELF-CARE Condition: Stable Instructions (If sedation given, give patient instructions): COVID-19 (Coronavirus Disease 2019) (ED) Additional Instructions: Please return to the Emergency Department if symptoms worsen or any other concerns. Is patient prescribed a controlled substance at d/c from ED?: No Referrals: Shady Vivas DO [Primary Care Provider] - 1-2 days Time of Disposition: 12:50
[2022-08-23 13:19] VITALS: RESP 22
== END 2022-08-23 13:27 | disposition home or self-care (01) ==
LOC: EC 10:40
DX: U07.1 COVID-19 (principal); Z87.891 Personal history of nicotine dependence
CPT/HCPCS: 71046; 87636; 99283

== ENCOUNTER → 2022-09-28 | Outpatient (CLI) | payer MEDICARE ==
--- NOTE | 2022-09-29 21:55 | MM ---
Reason for Exam: Screening (asymptomatic). Last mammogram was performed 1 year(s) and 1 month(s) ago. Patient History: Menarche at age 14. First Full-Term at age 21. Hysterectomy at age 44. Postmenopausal. Estrogen, from age 58 until age 64. 1989, Benign Excisional Biopsy on the left side. 05/16/2014, MG discontinued stereo core RT on the right side. Maternal aunt had breast cancer. Risk Values: Kandice 5 year model risk: 1.8%. NCI Lifetime model risk: 5.3%. Prior Study Comparison: 07/21/2020 Bilateral Screening Mammogram, [facility]. 08/06/2020 Right Diagnostic Mammogram, [facility]. 08/27/2021 Bilateral Screening Mammogram, [facility]. Tissue Density: The breast tissue is heterogeneously dense. This may lower the sensitivity of mammography. Findings: Analyzed By CAD. Areas of asymmetric density are unchanged. There is no suspicious group of microcalcifications or new suspicious mass in either breast. Overall Assessment: Benign, BI-RAD 2 Management: Screening Mammogram of both breasts in 1 year. 1. Patient should continue monthly self breast exams. 2. A clinical breast exam by your physician is recommended on an annual basis. 3. This exam should not preclude additional follow-up of suspicious palpable abnormalities. Electronically signed and approved by: Brenda Higgins M.D. Radiologist
== END | disposition home or self-care (01) ==
LOC: RADMAMWWP 13:43
PROVIDERS: ATTEND Family Medicine
DX: Z12.31 Encounter for screening mammogram for malignant neoplasm of breast (principal); Z78.0 Asymptomatic menopausal state; Z80.3 Family history of malignant neoplasm of breast; Z98.890 Other specified postprocedural states
CPT/HCPCS: 77063; 77067

== ENCOUNTER → 2023-11-11 | Outpatient (CLI) | payer MEDICARE ==
--- NOTE | 2023-11-11 13:23 | MM ---
Reason for Exam: Screening (asymptomatic). Last mammogram was performed 1 year(s) and 2 month(s) ago. Patient History: Menarche at age 14. First Full-Term at age 21. Hysterectomy at age 44. Postmenopausal. Estrogen, from age 58 until age 64. 1989, Benign Excisional Biopsy on the left side. 05/16/2014, MG discontinued stereo core RT on the right side. Maternal aunt had breast cancer. Risk Values: Kandice 5 year model risk: 1.9%. NCI Lifetime model risk: 4.8%. Prior Study Comparison: 08/06/2020 Right Diagnostic Mammogram, [facility]. 08/27/2021 Bilateral Screening Mammogram, [facility]. 09/28/2022 Bilateral MG 3D screening mammo w/cad, [facility]. Tissue Density: The breast tissue is heterogeneously dense. This may lower the sensitivity of mammography. Findings: Analyzed By CAD. The pattern is symmetrical. Benign calcifications right breast. No suspicious groups of microcalcifications, spiculated or lobular masses, architectural distortion or other secondary signs of malignancy are mammographically apparent. Overall Assessment: Benign, BI-RAD 2 Management: Screening Mammogram of both breasts in 1 year. A negative mammogram report should not preclude additional follow up of suspicious palpable abnormalities. Patient should continue monthly self breast exam. A clinical breast exam by your physician is recommended on an annual basis and results should be correlated with mammographic findings. Electronically signed and approved by: Lazaro Quinones D.O. Radiologis
== END | disposition home or self-care (01) ==
LOC: RADMAMWWP 12:11
PROVIDERS: ATTEND Family Medicine
DX: Z12.31 Encounter for screening mammogram for malignant neoplasm of breast (principal); Z78.0 Asymptomatic menopausal state; Z80.3 Family history of malignant neoplasm of breast
CPT/HCPCS: 77063; 77067

== ENCOUNTER → 2024-04-06 | Outpatient (CLI) | payer MEDICARE ==
--- NOTE | 2024-04-06 15:31 | US ---
EXAMINATION TYPE: US carotid duplex BILAT DATE OF EXAM: 04/06/2024 COMPARISON: NONE CLINICAL INDICATION: Female, 73 years old with history of I73.9 PAD; PAD TECHNIQUE: Carotid duplex ultrasound examination. Indirect Doppler criteria was utilized. 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 Criteria for Assigning % of Stenosis / Diameter reduction (Estimation based on the indirect measurements of the internal carotid artery velocities (ICA PSV). 1. Normal (no stenosis)=ICA PSV < 125 cm/s: ratio < 2.0: ICA EDV<40 cm/s. 2. Less than 50% stenosis=ICA PSV < 125 cm/s: ratio < 2.0: ICA EDV<40 cm/s. 3. 50 to 69% stenosis=ICA PSV of 125 to 230 cm/s: ration 2.0 ? 4.0: ICA EDV 40-100 cm/s. 4. Greater than 70% stenosis to near occlusion= ICA PSV > 230 cm/s: ratio > 4.0: ICA EDV > 100 cm/s. 5. Near occlusion= ICA PSV velocities may be low or undetectable: variable ratio and ICA EDV. 6. Total occlusion=unable to detect flow.
== END | disposition home or self-care (01) ==
LOC: RADUSWWP 14:22
PROVIDERS: ATTEND Family Medicine
DX: I73.9 Peripheral vascular disease, unspecified (principal)
CPT/HCPCS: 93880

== ENCOUNTER 2024-06-05 18:33 | Emergency (ER) | payer MEDICARE ==
[2024-06-05 19:01] VITALS: RESP 18; TEMP 98.5
--- NOTE | 2024-06-05 19:02 | ED ---
Upper Extremity HPI - General Chief Complaint: Extremity Injury, Upper Stated Complaint: finger injury Time Seen by Provider: 06/05/24 18:46 Source: patient, RN notes reviewed Mode of arrival: wheelchair Limitations: no limitations - History of Present Illness Initial Comments: This is a 73-year-old female with history of MS who presents emergency depart ment chief complaint of left thumb injury. Patient states that she was going to close her car door when she slammed her left thumb into the door. Patient's thumb was wrapped while she was at a fast food restaurant this evening. Patient presents and would like her thumb to be evaluated. She is unaware when her last tetanus vaccination was. States that bleeding is controlled. Denies blood thin ner use. - Related Data Home Medications Medication Instructions Recorded Confirmed Oxybutynin Xl [Ditropan XL] 5 mg PO TID PRN 12/18/18 03/27/21 Loratadine 10 mg PO DAILY 03/27/21 03/27/21 Simvastatin [Zocor] 20 mg PO DAILY 03/27/21 03/27/21 Allergies Allergy/AdvReac Type Severity Reaction Status Date / Time No Known Allergies Allergy Verified 06/05/24 19:01 Review of Systems ROS Statement: Those systems with pertinent positive or pertinent negative responses have been documented in the HPI. ROS Other: All systems not noted in ROS Statement are negative. Past Medical History Past Medical History: Neurologic Disorder Additional Past Medical History / Comment(s): MS History of Any Multi-Drug Resistant Organisms: None Reported Past Surgical History: Section, Orthopedic Surgery, Tonsillectomy Additional Past Surgical History / Comment(s): left knee replacement Past Anesthesia/Blood Transfusion Reactions: No Reported Reaction Past Psychological History: No Psychological Hx Reported Smoking Status: Former smoker Past Alcohol Use History: Rare Past Drug Use History: None Reported General Exam Limitations: no limitations General appearance: alert, in no apparent distress ENT exam: Present: normal exam, mucous membranes moist Neck exam: Present: normal inspection. Absent: tenderness, meningismus, lymphadenopathy Respiratory exam: Present: normal lung sounds bilaterally. Absent: respiratory distress, wheezes, rales, rhonchi, stridor Cardiovascular Exam: Present: regular rate, normal rhythm, normal heart sounds. Absent: systolic murmur, diastolic murmur, rubs, gallop, clicks GI/Abdominal exam: Present: soft, normal bowel sounds. Absent: distended, tenderness, guarding, rebound, rigid Left Hand Wrist exam: Present: tenderness, laceration (lateral distal fingertip), subungual hematoma (left first digit) Neuro motor exam: Present: wrist extension intact, thumb opposition intact, thumb IP flexion intact, thumb adduction intact Vascular: Present: normal capillary refill, radial pulse (2+). Absent: vascular compromise Skin exam: Present: warm, dry, intact, normal color. Absent: rash Course Vital Signs 06/05/24 06/05/24 18:59 19:34 Temperature 98.5 F 98.5 F Pulse Rate 57 L 56 L Respiratory 18 18 Rate Blood Pressure 142/63 136/65 O2 Sat by Pulse 100 100 Oximetry Medical Decision Making - Medical Decision Making Was pt. sent in by a medical professional or institution (TERELL Horn, HOUSEKEEPING MANAGER, urgent care, hospital, or assisted...) When possible be specific @ -No Did you speak to anyone other than the patient for history (EMS, parent, family, police, friend...)? What history was obtained from this source @ -No Did you review nursing and triage notes (agree or disagree)? Why? @ -I reviewed and agree with nursing and triage notes Were old charts reviewed (outside hosp., previous admission, EMS record, old EKG, old radiological studies, urgent care reports/EKG's, assisted records)? Report findings @ -No old charts were reviewed Differential Diagnosis (chest pain, altered mental status, abdominal pain women, abdominal pain men, vaginal bleeding, weakness, fever, dyspnea, syncope, headache, dizziness, GI bleed, back pain, seizure, CVA, palpatations, mental health, musculoskeletal)? @ -Differential Musculoskeletal Muscular strain, contusion, ligament sprain, fracture, arthritis, septic arthritis, bursitis, cellulitis, muscle spasm, nerve compression, DVT, arterial occlusion, herpes zoster, electrolyte abnormality, tumor.... This is not meant to be in all inclusive list EKG interpreted by me (3pts min.). @ -None X-rays interpreted by me (1pt min.). @ -None done CT interpreted by me (1pt min.). @ -None done U/S interpreted by me (1pt. min.). @ -None done What testing was considered but not performed or refused? (CT, X-rays, U/S, labs)? Why? @ -xray imaging of the finger was deferred at this time. Recommend that patient receive x-ray for further evaluation of potential distal finger fracture however she states that she feels her finger is not broken and would not like to undergo x-ray imaging at this time. What meds were considered but not given or refused? Why? @ -None Did you discuss the management of the patient with other professionals (professionals i.e. DrAlcon, PA, HOUSEKEEPING MANAGER, lab, RT, psych nurse, hospice social worker, [employer] supervisor, teacher, worldwide chief creative officer, skilled nursing case manager)? Give summary @ -No Was smoking cessation discussed for >3mins.? @ -No Was critical care preformed (if so, how long)? @ -No Were there social determinants of health that impacted care today? How? (Homelessness, low income, unemployed, alcoholism, drug addiction, transportation, low edu. Level, literacy, decrease access to med. care, fdc, rehab)? @ -No Was there de-escalation of care discussed even if they declined (Discuss DNR or withdrawal of care, Hospice)? DNR status @ -No What co-morbidities impacted this encounter? (DM, HTN, Smoking, COPD, CAD, Cancer, CVA, ARF, Chemo, Hep., AIDS, mental health diagnosis, sleep apnea, morbid obesity)? @ -None Was patient admitted / discharged? Hospital course, mention meds given and route, prescriptions, significant lab abnormalities, going to OR and other pertinent info. @ -Discharged. 73-year-old female with left thumb injury. On examination patient noted to have approximately 1 cm laceration to the distal left thumb with mild soft tissue swelling. Recommend that patient undergo x-ray imaging but she has deferred at this time. Area was cleansed with sterile water and wrapped in a aluminum form splint was placed over the finger. Additionally patient was provided with her tetanus vaccination. Recommend that she continue to rest, ice and use splint. All questions answered at bedside strict return prior discussed with the patient she is verbalized understanding. Case discussed with Dr. Mullins Undiagnosed new problem with uncertain prognosis? @ -No Drug Therapy requiring intensive monitoring for toxicity (Heparin, Nitro, Insulin, Cardizem)? @ -No Were any procedures done? @ -No Diagnosis/symptom? @ -Finger injury, finger sprain, laceration Acute, or Chronic, or Acute on Chronic? @ -Acute Uncomplicated (without systemic symptoms) or Complicated (systemic symptoms)? @ -Uncomplicated Side effects of treatment? @ -No Exacerbation, Progression, or Severe Exacerbation? @ -No Poses a threat to life or bodily function? How? (Chest pain, [place], [place], pneumonia, PE, COPD, DKA, ARF, appy, cholecystitis, CVA, Diverticulitis, Homicidal, Suicidal, threat to staff... and all critical care pts) @ -No Disposition Clinical Impression: Thumb sprain, Laceration Disposition: HOME SELF-CARE Condition: Good Instructions (If sedation given, give patient instructions): Finger Sprain (ED) Additional Instructions: return to the emergency department for any new or worsening symptoms. continue symptomatic treatment at home with Tylenol Motrin and rest and ice. Use finger splint as needed. Is patient prescribed a controlled substance at d/c from ED?: No Referrals: Shady Vivas DO [Primary Care Provider] - 1-2 days Time of Disposition: 19:28
[2024-06-05] MEDS: DIPH,PERTUS(ACELL)TETVAC-LF 0.5 ML VIAL IM ONE (19:29)
[2024-06-05 19:35] VITALS: BP 136/65; PULSE 56
== END 2024-06-05 19:35 | disposition home or self-care (01) ==
LOC: EC 18:33
CPT/HCPCS: 29125; 90471; 90715; 99283

== ENCOUNTER 2024-11-16 23:33 | Inpatient (IN) | payer MEDICARE ==
[2024-11-16 23:58] LABS: Glucose,Whole Blood 133 mg/dL (70-110)
[2024-11-17 00:38] LABS: Basophils % (A) 0 %; Eosinophils # (A) 0.1 k/uL (0-0.7); Eosinophils % (A) 1 %; HGB 12.4 gm/dL (11.4-16.0); Lymphocytes # (A) 0.5 k/uL (1.0-4.8); Lymphocytes % (A) 4 %; MCH 30.2 pg (25.0-35.0); MCHC 32.6 g/dL (31.0-37.0); MCV 92.8 fL (80.0-100.0); Mean Platelet Volume 7.5; Monocytes # (A) 0.5 k/uL (0-1.0); Monocytes % (A) 4 %; Neutrophils # (A) 10.8 k/uL (1.3-7.7); Neutrophils % (A) 90 %; Platelet Count 323 k/uL (150-450); RDW 12.7 % (11.5-15.5)
[2024-11-17 00:52] LABS: ALT 13 U/L (4-34); AST 23 U/L (14-36); African American GFR (CKD) >90 (>60 ml/min/1.73 sqM); Alcohol <10 mg/dL; Alkaline Phosphatase 91 U/L (38-126); Anion Gap 10 mmol/L; Blood Urea Nitrogen 10 mg/dL (7-17); Calcium 9.1 mg/dL (8.4-10.2); Carbon Dioxide 26 mmol/L (22-30); Chloride 101 mmol/L (98-107); Glucose 131 mg/dL (74-99); INR 0.9 (<1.2); Non-African American GFR(CKD) >90 (>60 ml/min/1.73 sqM); Potassium 3.8 mmol/L (3.5-5.1); Prothrombin Time 10.5 sec (10.0-12.5); Sodium 137 mmol/L (137-145); Total Bilirubin 0.8 mg/dL (0.2-1.3); Total Protein 6.3 g/dL (6.3-8.2)
--- NOTE | 2024-11-17 01:34 | XR ---
EXAM: XR Chest, 1 View CLINICAL HISTORY: Altered mental status TECHNIQUE: Frontal view of the chest. COMPARISON: Chest 2 views dated 08/23/2022 FINDINGS: Lungs: Subtle subsegmental changes at the left lung base are new from the previous examination. The lungs are otherwise well aerated. The pulmonary vasculature demonstrates no segment radiographic abnormality. Pleural space: Unremarkable. No pneumothorax. No large pleural effusion. Heart: The cardiac silhouette borderline prominent, new from the previous examination and is portable AP technique. Mediastinum: The mediastinal contours are stable. The trachea is midline. Bones/joints: Unremarkable. No acute fracture. IMPRESSION: Subsegmental changes at the left lung base are presumed atelectasis. Subtle infection is difficult. No pleural effusion or pneumothorax.
--- NOTE | 2024-11-17 02:21 | ED ---
General Adult HPI - General Chief complaint: Neuro Symptoms/Deficit Stated complaint: weakness Time Seen by Provider: 11/16/24 23:40 Source: EMS Mode of arrival: EMS Limitations: no limitations - History of Present Illness Initial comments: 74-year-old female with past medical history of MS who presents to the emergency department with weakness. EMS called to state that the patient was having strokelike symptoms. She does have a history of MS. She is typically able to ambulate however family states that the patient has had progressive weakness to the point where she is unable to ambulate on her own. They do not feel like her speech is the same and it is more slurred than normal. This has been increasing in severity. There was no sudden onset of symptoms so last known well is difficult to approximate. Patient does have weakness in the left arm and right leg. She is able to hold the left arm up off the bed but states he feels weak to her. She admits that she has MS and has been unable to get her infusion in the past 5 months due to drug shortage. She follows with Dr. Ricks. She denies any headache or visual changes. No nausea or vomiting. No chest pain or difficulty breathing. No other alleviating, precipitating or modifying factors - Related Data Home Medications Medication Instructions Recorded Confirmed Oxybutynin Xl [Ditropan XL] 5 mg PO TID PRN 12/18/18 03/27/21 Loratadine 10 mg PO DAILY 03/27/21 03/27/21 Simvastatin [Zocor] 20 mg PO DAILY 03/27/21 03/27/21 Allergies Allergy/AdvReac Type Severity Reaction Status Date / Time No Known Allergies Allergy Verified 06/05/24 19:01 Review of Systems ROS Statement: Those systems with pertinent positive or pertinent negative responses have been documented in the HPI. ROS Other: All systems not noted in ROS Statement are negative. Past Medical History Past Medical History: Neurologic Disorder Additional Past Medical History / Comment(s): MS History of Any Multi-Drug Resistant Organisms: None Reported Past Surgical History: Section, Orthopedic Surgery, Tonsillectomy Additional Past Surgical History / Comment(s): left knee replacement Past Anesthesia/Blood Transfusion Reactions: No Reported Reaction Past Psychological History: No Psychological Hx Reported Smoking Status: Former smoker Past Alcohol Use History: Rare Past Drug Use History: None Reported General Exam Limitations: no limitations General appearance: alert, in no apparent distress Head exam: Present: atraumatic, normocephalic, normal inspection Eye exam: Present: PERRL, other (Patient has strabismus on the left) ENT exam: Present: normal exam, mucous membranes moist, other (Smile is equal) Neck exam: Present: normal inspection. Absent: tenderness, meningismus, lymphadenopathy Respiratory exam: Present: normal lung sounds bilaterally. Absent: respiratory distress, wheezes, rales, rhonchi, stridor Cardiovascular Exam: Present: regular rate, normal rhythm, normal heart sounds. Absent: systolic murmur, diastolic murmur, rubs, gallop, clicks GI/Abdominal exam: Present: soft, normal bowel sounds. Absent: distended, tenderness, guarding, rebound, rigid Extremities exam: Present: other (Patient is able to lift and hold her left arm against gravity however reports to feeling weak. She is unable to pick her right leg up off the bed. She has mild dysarthria however no facial droop) Neurological exam: Present: alert Psychiatric exam: Present: flat affect Course Vital Signs 11/16/24 11/17/24 11/17/24 23:36 02:45 05:26 Temperature 100.2 F H Pulse Rate 86 77 86 Respiratory 18 18 18 Rate Blood Pressure 128/62 126/65 115/58 O2 Sat by Pulse 99 95 93 L Oximetry 11/17/24 06:32 Temperature Pulse Rate 82 Respiratory 18 Rate Blood Pressure 123/66 O2 Sat by Pulse 95 Oximetry Medical Decision Making - Medical Decision Making Was pt. sent in by a medical professional or institution (, PA, [facility]ADLE P[employer], urgent care, hospital, or usp...) When possible be specific @ -No Did you speak to anyone other than the patient for history (EMS, parent, family, police, friend...)? What history was obtained from this source @ -Spoke with EMS and the family for history Did you review nursing and triage notes (agree or disagree)? Why? @ -I reviewed and agree with nursing and triage notes Were old charts reviewed (outside hosp., previous admission, EMS record, old EKG, old radiological studies, urgent care reports/EKG's, usp records)? Report findings @ -No old charts were reviewed Differential Diagnosis (chest pain, altered mental status, abdominal pain women, abdominal pain men, vaginal bleeding, weakness, fever, dyspnea, syncope, headache, dizziness, GI bleed, back pain, seizure, CVA, palpatations, mental health, musculoskeletal)? @ -Differential Weakness: Hypoglycemia, shock, sepsis, hyponatremia, anemia, infection, MN, ETOH, adverse medicine reaction, overdose, stroke, this is not meant to be an all-inclusive list. Differential CVA Ischemic stroke, hemorrhagic stroke, brain tumor, atypical migraine, Wernicke's encephalopathy, seizure, multiple sclerosis, meningitis, encephalitis, hypoglycemia, Guillain-Levin, electrolytes disturbance, myasthenia gravis.... This is not meant to be an all-inclusive list EKG interpreted by me (3pts min.). @ -Yes and demonstrates sinus rhythm with rate of 78. ND interval 124. QRS 87. QTc of 379. No acute ST segment elevations or depressions X-rays interpreted by me (1pt min.). @ -Yes and demonstrates no acute process CT interpreted by me (1pt min.). @ -Yes and demonstrates no acute process U/S interpreted by me (1pt. min.). @ -None done What testing was considered but not performed or refused? (CT, X-rays, U/S, labs)? Why? @ -None What meds were considered but not given or refused? Why? @ -None Did you discuss the management of the patient with other professionals (professionals i.e. , PA, L[employer] P[employer]ER, lab, RT, psych nurse, healthcare social worker, data technical lead, teacher, guest relation officer, casework supervisor)? Give summary @ -Spoke with Dr. Carrion for the admission Was smoking cessation discussed for >3mins.? @ -No Was critical care preformed (if so, how long)? @ -No Were there social determinants of health that impacted care today? How? (Homelessness, low income, unemployed, alcoholism, drug addiction, transportation, low edu. Level, literacy, decrease access to med. care, residential, rehab)? @ -No Was there de-escalation of care discussed even if they declined (Discuss DNR or withdrawal of care, Hospice)? DNR status @ -No What co-morbidities impacted this encounter? (DM, HTN, Smoking, COPD, CAD, Cancer, CVA, ARF, Chemo, Hep., AIDS, mental health diagnosis, sleep apnea, morbid obesity)? @ -MS Was patient admitted / discharged? Hospital course, mention meds given and route, prescriptions, significant lab abnormalities, going to OR and other pertinent info. @ -Upon arrival patient seen and evaluated in bed 4. Thorough history and physical exam was performed. 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 Patient has no movement of the right lower extremity against gravity. She does have some slurred speech however face is symmetric and tongue is midline. There is high concern for MS exacerbation. IV was established and laboratory studies are conducted. Patient does go for CT which is negative. I did discuss results with the patient. Informed them that CVA may be in the dif ferential however MS exacerbation is also highly considered. I did give her 1000 mg Solu-Medrol. Recommended admission for neurology consultation. Patient was agreeable to this. Spoke with Dr. Carrion for the admission Undiagnosed new problem with uncertain prognosis? @ -yes Drug Therapy requiring intensive monitoring for toxicity (Heparin, Nitro, Insulin, Cardizem)? @ -No Were any procedures done? @ -No Diagnosis/symptom? @ -Dysarthria, acute weakness left arm, right leg, history of MS, suspected MS flare Acute, or Chronic, or Acute on Chronic? @ -Acute Uncomplicated (without systemic symptoms) or Complicated (systemic symptoms)? @ -complicated Side effects of treatment? @ -No Exacerbation, Progression, or Severe Exacerbation? @ -No Poses a threat to life or bodily function? How? (Chest pain, USA, MN, pneumonia, PE, COPD, DKA, ARF, appy, cholecystitis, CVA, Diverticulitis, Homicidal, Suicidal, threat to staff... and all critical care pts) @ -No - Lab Data Result diagrams: 11/16/24 23:48 11/16/24 23:48 Lab Results 11/16/24 11/16/24 11/16/24 Range/Units 23:48 23:48 23:48 WBC 12.0 H (3.8-10.6) k/uL RBC 4.10 (3.80-5.40) m/uL Hgb 12.4 (11.4-16.0) gm/dL Hct 38.0 (34.0-46.0) % MCV 92.8 (80.0-100.0) fL MCH 30.2 (25.0-35.0) pg MCHC 32.6 (31.0-37.0) g/dL RDW 12.7 (11.5-15.5) % Plt Count 323 (150-450) k/uL MPV 7.5 Neutrophils % 90 % Lymphocytes % 4 % Monocytes % 4 % Eosinophils % 1 % Basophils % 0 % Neutrophils # 10.8 H (1.3-7.7) k/uL Lymphocytes # 0.5 L (1.0-4.8) k/uL Monocytes # 0.5 (0-1.0) k/uL Eosinophils # 0.1 (0-0.7) k/uL Basophils # 0.0 (0-0.2) k/uL PT 10.5 (10.0-12.5) sec INR 0.9 (<1.2) APTT 25.0 (22.0-30.0) sec Sodium 137 (137-145) mmol/L Potassium 3.8 (3.5-5.1) mmol/L Chloride 101 (98-107) mmol/L Carbon Dioxide 26 (22-30) mmol/L Anion Gap 10 mmol/L BUN 10 (7-17) mg/dL Creatinine 0.60 (0.52-1.04) mg/dL Est GFR (CKD-EPI)AfAm >90 (>60 ml/min/1.73 sqM) Est GFR (CKD-EPI)NonAf >90 (>60 ml/min/1.73 sqM) Glucose 131 H (74-99) mg/dL POC Glucose (mg/dL) (70-110) mg/dL POC Glu Coating Technician ID Calcium 9.1 (8.4-10.2) mg/dL Total Bilirubin 0.8 (0.2-1.3) mg/dL AST 23 (14-36) U/L ALT 13 (4-34) U/L Alkaline Phosphatase 91 (38-126) U/L Troponin I (0.000-0.034) ng/mL Total Protein 6.3 (6.3-8.2) g/dL Albumin 4.0 (3.5-5.0) g/dL Urine Color Urine Appearance (Clear) Urine pH (5.0-8.0) Ur Specific Ayden (1.001-1.035) Urine Protein (Negative) Urine Glucose (UA) (Negative) Urine Ketones (Negative) Urine Blood (Negative) Urine Nitrite (Negative) Urine Bilirubin (Negative) Urine Urobilinogen (<2.0) mg/dL Ur Leukocyte Esterase (Negative) Urine RBC (0-5) /hpf Urine WBC (0-5) /hpf Ur Squamous Epith Cells (0-4) /hpf Urine Bacteria (None) /hpf Urine Mucus (None) /hpf Urine Yeast (Budding) (None) /hpf Serum Alcohol <10 mg/dL 11/16/24 11/16/24 11/17/24 Range/Units 23:48 23:55 02:53 WBC (3.8-10.6) k/uL RBC (3.80-5.40) m/uL Hgb (11.4-16.0) gm/dL Hct (34.0-46.0) % MCV (80.0-100.0) fL MCH (25.0-35.0) pg MCHC (31.0-37.0) g/dL RDW (11.5-15.5) % Plt Count (150-450) k/uL MPV Neutrophils % % Lymphocytes % % Monocytes % % Eosinophils % % Basophils % % Neutrophils # (1.3-7.7) k/uL Lymphocytes # (1.0-4.8) k/uL Monocytes # (0-1.0) k/uL Eosinophils # (0-0.7) k/uL Basophils # (0-0.2) k/uL PT (10.0-12.5) sec INR (<1.2) APTT (22.0-30.0) sec Sodium (137-145) mmol/L Potassium (3.5-5.1) mmol/L Chloride (98-107) mmol/L Carbon Dioxide (22-30) mmol/L Anion Gap mmol/L BUN (7-17) mg/dL Creatinine (0.52-1.04) mg/dL Est GFR (CKD-EPI)AfAm (>60 ml/min/1.73 sqM) Est GFR (CKD-EPI)NonAf (>60 ml/min/1.73 sqM) Glucose (74-99) mg/dL POC Glucose (mg/dL) 133 H (70-110) mg/dL POC Glu Coating Technician ID Achatz Ana Maria Calcium (8.4-10.2) mg/dL Total Bilirubin (0.2-1.3) mg/dL AST (14-36) U/L ALT (4-34) U/L Alkaline Phosphatase (38-126) U/L Troponin I <0.012 (0.000-0.034) ng/mL Total Protein (6.3-8.2) g/dL Albumin (3.5-5.0) g/dL Urine Color Light Yellow Urine Appearance Clear (Clear) Urine pH 7.0 (5.0-8.0) Ur Specific Ayden 1.014 (1.001-1.035) Urine Protein Negative (Negative) Urine Glucose (UA) Negative (Negative) Urine Ketones Negative (Negative) Urine Blood Trace H (Negative) Urine Nitrite Negative (Negative) Urine Bilirubin Negative (Negative) Urine Urobilinogen <2.0 (<2.0) mg/dL Ur Leukocyte Esterase Small H (Negative) Urine RBC 5 (0-5) /hpf Urine WBC 11 H (0-5) /hpf Ur Squamous Epith Cells 2 (0-4) /hpf Urine Bacteria Rare H (None) /hpf Urine Mucus Rare H (None) /hpf Urine Yeast (Budding) Rare H (None) /hpf Serum Alcohol mg/dL Disposition Clinical Impression: Dysarthria, Weakness, Multiple sclerosis Disposition: ADMITTED IP TO THIS [facility] Condition: Stable Is patient prescribed a controlled substance at d/c from ED?: No Time of Disposition: 03:50 Decision to Admit Reason: Admit from EC Decision Date: 11/17/24 Decision Time: 03:50
[2024-11-17] MEDS: MORPHINE SULFATE 4 MG/ML SYRINGE IVP STA (02:47)
[2024-11-17] MEDS: methylPREDNISolone SOD SUCCIN 1,000 MG in SODIUM CHLORIDE 0.9% 250 ML IVPB STA (02:57)
[2024-11-17 03:11] LABS: Appearance,Urine Clear (Clear); Bacteria,Urine Rare /hpf; Bilirubin,Urine Negative (Negative); Blood,Urine Trace (Negative); Budding Yeast,Urine Rare /hpf; Color,Urine Light Yellow; Glucose,Urine (UA) Negative (Negative); Ketones,Urine Negative (Negative); Leukocyte Esterase,Urine Small (Negative); Mucus,Urine Rare /hpf; Nitrite,Urine Negative (Negative); Protein,Urine Negative (Negative); RBC,Urine 5 /hpf (0-5); Specific Gravity,Urine 1.014 (1.001-1.035); Squamous Epithelial Cell,Urine 2 /hpf (0-4); Urobilinogen,Urine <2.0 mg/dL (<2.0); WBC,Urine 11 /hpf (0-5)
[2024-11-17] MEDS ORDERED: NALOXONE 0.4 MG/ML 1 ML VIAL IV PRN (03:50)
[2024-11-17] MEDS ORDERED: MORPHINE SULFATE 4 MG/ML SYRINGE IV PRN (03:50)
--- NOTE | 2024-11-17 06:33 | CT ---
EXAMINATION TYPE: CT brain wo con DATE OF EXAM: 11/17/2024 COMPARISON: 03/27/2021 CLINICAL INDICATION: Female, 74 years old with history of ams; PHH, Pt has Hx of MS. Pt coming in for stroke like symptoms. Per EMS, family stated that the pt is not able to ambulate. Pt states that she feels as though her speech is not the same. Pt came in with dried food around her lips. Pt denies as pirating on food. Pt not having any SOB or ROMY. Pts left arm was not able to be held up and her right leg was not able to be lifted. Unknown as to pt's baseline. Pt states that she walks normally. CT DLP: mGycm Automated exposure control for dose reduction was used. Findings: The ventricles, basal cisterns and sulci over the convexities are mildly enlarged. There is mild-to-m oderate decreased density in the periventricular white matter consistent with chronic ischemic white matter demyelination. There is no mass effect or shift of the midline structures. There is no acute intra or extra-axial hemorrhage. The posterior fossa including the brainstem, fourth ventricle and cerebellar pontine angles appear no rmal. Intraorbital contents appear normal and symmetric. Visualized paranasal sinuses and mastoid air cells are well aerated. The calvarium is intact. IMPRESSION: 1. No acute bleed or mass effect. 2. Age-appropriate senescent atrophy and ischemic white matter changes as described above. 3. No significant interval change. [facility], Workstation: JH, 11/17/2024 6:30 AM
[2024-11-17] MEDS: HYDROcodone/APAP 10-325MG 1 EACH TAB PO ONE (06:55)
[2024-11-17] MEDS ORDERED: LORazepam 1 MG/0.5 ML VIAL IV PRN (10:34)
[2024-11-17] MEDS: methylPREDNISolone SOD SUCCIN 500 MG in SODIUM CHLORIDE 0.9% 100 ML IVPB SCH (12:18)
--- NOTE | 2024-11-17 12:54 | P.CNNES ---
History of Present Illness Consult date: 11/17/24 Requesting physician: Vera Benitez Reason for Consult: dysarthria, weakness, possible ms exacerbation History of Present Illness: This is a 74 year-old woman with history of Multiple Sclerosis and is On IV Ocrevus who presents to the emergency department who presents to the emergency department because of left side weakness and slurred speech. The patient family members are at bedside (son, [id number] and ). It seems she has not received her scheduled IV Ocrevus per patient in past couple month because of an error and miscommunication. Not exactly sure about the timeframe. Per family feels over the past couple months she did not get it. Per family yesterday she had left sided weakness, and slurred speech but then later her symptoms started this past . Denies any history of stroke. She follows-up with Dr. Rooney for her Multiple Sclerosis. In the past she was seeing Dr. Lopes and she switched to her new neurologist. Yesterday she received IV Steroids one time and today she feels back to baseline. Some the work-up during this hospital visit consisted of: I reviewed labs. CT head: No acute bleed or mass effect. Age-appropiate senescent atrophy and ischemic white matter changes. No significant interval change. I personally reviewed CT and agree with report. Review of Systems As per HPI. Past Medical History Past Medical History: Neurologic Disorder Additional Past Medical History / Comment(s): MS History of Any Multi-Drug Resistant Organisms: None Reported Past Surgical History: Section, Orthopedic Surgery, Tonsillectomy Additional Past Surgical History / Comment(s): left knee replacement Past Anesthesia/Blood Transfusion Reactions: No Reported Reaction Past Psychological History: No Psychological Hx Reported Smoking Status: Former smoker Past Alcohol Use History: Rare Past Drug Use History: None Reported Medications and Allergies Home Medications Medication Instructions Recorded Confirmed Type Oxybutynin Xl [Ditropan XL] 5 mg PO TID PRN 12/18/18 03/27/21 History Loratadine 10 mg PO DAILY 03/27/21 03/27/21 History Simvastatin [Zocor] 20 mg PO DAILY 03/27/21 03/27/21 History Allergies Allergy/AdvReac Type Severity Reaction Status Date / Time No Known Allergies Allergy Verified 06/05/24 19:01 Physical Examination - Vital Signs Vital Signs: Vital Signs Temp Pulse Pulse Resp BP BP Pulse Ox 11/17/24 08:18 71 18 118/59 95 11/17/24 06:32 82 18 123/66 95 11/17/24 05:26 86 18 115/58 93 L 11/17/24 02:45 77 18 126/65 95 11/16/24 23:36 100.2 F H 86 18 128/62 99 Intake and Output 11/16/24 11/17/24 11/17/24 22:59 06:59 14:59 Other: Weight 58.967 kg GENERAL: The patient is lying in bed and is not in acute distress. NEUROLOGICAL: Higher mental function: The patient is awake, alert, oriented to self, place and time. Patient is following commands. No aphasia and no neglect. Cranial nerves: The pupils are round, equal and reactive to light and accommodation. Visual adame are full to confrontation throughout. Extraocular movement is intact no nystagmus is noted. Facial sensation is normal to touch throughout. The facial strength is normal throughout. Hearing is mildly decreased bilaterally to hand rub. Tongue is midline and moved [id number] without any difficulty. No dysarthria is noted. Shoulder shrug is normal bilaterally. 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 Otherwise 5 over 5 throughout. Normal tone and bulk. Cerebellum: Normal finger to nose bilaterally. Sensation: Sensation is normal to touch throughout. Reflexes (right/left): 2+ throughout. Plantars are mute bilaterally. Results - Laboratory Findings CBC and BMP: 11/16/24 23:48 11/16/24 23:48 Abnormal Lab Findings: Abnormal Labs 11/16/24 11/16/24 11/16/24 23:48 23:48 23:55 WBC 12.0 H Neutrophils # 10.8 H Lymphocytes # 0.5 L Glucose 131 H POC Glucose (mg/dL) 133 H Urine Blood Ur Leukocyte Esterase Urine WBC Urine Bacteria Urine Mucus Urine Yeast (Budding) 11/17/24 02:53 WBC Neutrophils # Lymphocytes # Glucose POC Glucose (mg/dL) Urine Blood Trace H Ur Leukocyte Esterase Small H Urine WBC 11 H Urine Bacteria Rare H Urine Mucus Rare H Urine Yeast (Budding) Rare H Assessment and Plan Assessment: This is a 74-year-old woman with history of multiple sclerosis and it seems that she has not had her IV Ocrevus in the last couple months that was supposed be scheduled because of miscommunication/error. She is unsure about the exact timeframe. Yesterday she received IV Solu-Medrol 1 time in the ED. She feels drastically better today. Likely MS exacerbation and her symptoms are left-sided weakness dys arthria--today is doing better. History of multiple sclerosis Plan: Started the patient on IV Solu-Medrol 500 mg every 12 hours on 11/17/2024 for 3- 5 days. She received one-time dose overnight 500 mg. Recommend sugar monitoring Ordered MRI of the brain and cervical spine with and without I consulted PT OT and BLAST FURNACE BLOWER Continue neurochecks Cardiac monitoring Prophylaxis I started the patient on famotidine. Upon discharge recommend the patient to follow-up with her outpatient neurologist, Dr. Rooney within 2-3 weeks. The plan discussed with the patient, and her family members who are bedside (, son and her [id number]). Thank you for the consultation. Time with Patient: Greater than 30
[2024-11-17] MEDS ORDERED: DEXTROSE 50% SYRINGE 50 ML IVP PRN ×2 (14:57)
[2024-11-17] MEDS: PANTOPRAZOLE 40 MG TABLET PO SCH (16:12)
[2024-11-17] MEDS: oxyBUTYnin chloride 5 MG TAB PO SCH (16:31)
[2024-11-17] MEDS: HYDROcodone/APAP 10-325MG 1 EACH TAB PO PRN (16:31)
[2024-11-17 17:12] LABS: Glucose,Whole Blood 279 mg/dL (70-110)
[2024-11-17] MEDS: INSULIN LISPRO (HumaLOG) 100 UNIT/ML 10 mL VL SQ SCH (17:55)
[2024-11-17 20:21] LABS: Glucose,Whole Blood 155 mg/dL (70-110)
[2024-11-17] MEDS: FAMOTIDINE 20 MG TAB PO SCH (20:32)
[2024-11-17] MEDS: HEPARIN SODIUM,PORCINE 5,000 UNIT/ML 1 ML VIAL SQ SCH (20:32)
[2024-11-18] MEDS: OLANZapine 10 MG VIAL IM STA (01:28)
--- NOTE | 2024-11-18 01:47 | HP ---
HISTORY AND PHYSICAL CHIEF COMPLAINT: Left-sided weakness and also dysarthria. HISTORY OF PRESENT ILLNESS: This 74-year-old woman with a past medical history of multiple medical problems including multiple sclerosis, was admitted with some weakness and was unable to ambulate. The patient also has some dysarthria. CT scan did not show any acute abnormality. Dr. Busby from Neurology saw the patient and recommended high-dose IV steroids. There is no history of fever, rigors, or chills at this time. PAST MEDICAL HISTORY: Reviewed and includes multiple sclerosis, DJD. Rest of the history and rest of the chart are also reviewed. HOME MEDICATIONS: Reviewed and include oxybutynin. Dose and rest of medications reviewed. ALLERGIES: None. FAMILY HISTORY: No history of heart disease or strokes in the family. SOCIAL HISTORY: Previous history of smoking. REVIEW OF SYSTEMS: Fourteen-point review of systems negative except as mentioned earlier. PHYSICAL EXAMINATION: VITAL SIGNS: Pulse 65, blood pressure 110/67, respirations 18. HEENT: Conjunctivae normal. NECK: No JVD. CARDIOVASCULAR: S1, S2 RESPIRATIONS: Breath sounds diminished at the bases. ABDOMEN: Soft, nontender. LEGS: No edema. NERVOUS SYSTEM: Mild diffuse weakness present. LABORATORY DATA: WBC 12. ASSESSMENT: 1. Left-sided weakness and dysarthria, possibly multiple sclerosis acute exacerbation. 2. History of multiple sclerosis. 3. Gait dysfunction. 4. History of degenerative joint disease. 5. History of left knee replacement. 6. FULL CODE. RECOMMENDATIONS AND DISCUSSION: In this 74-year-old woman presented with multiple complex medical issues, we will monitor the patient closely. High-dose intravenous steroids have been recommend. I would recommend to monitor blood sugar closely. PT, OT evaluation. Increase ambulation. Otherwise, resume the home medications. Prognosis guarded. Further recommendations to follow. See orders for further details. MRI has been ordered. MMODL / IJN: [id number] /
[2024-11-18 06:33] LABS: Glucose,Whole Blood 141 mg/dL (70-110)
[2024-11-18] MEDS: CHOLECALCIFEROL 25 MCG (1000 IU) TABLET PO SCH (08:15)
[2024-11-18] MEDS: MULTIVITAMINS, THERA 1 EACH TAB PO SCH (08:15)
[2024-11-18] MEDS: LORATADINE 10 MG TAB PO SCH (08:15)
[2024-11-18 09:32] LABS: Basophils # (A) 0.01 X 10*3/uL (0.00-0.10); Basophils % (A) 0.1 %; Eosinophils # (A) 0 X 10*3/uL (0.04-0.35); Eosinophils % (A) 0 %; HCT 32.2 % (37.2-46.3); HGB 10.4 g/dL (12.0-15.0); Lymphocytes # (A) 0.58 X 10*3/uL (0.90-5.00); Lymphocytes % (A) 4.5 %; MCH 29.9 pg (27.0-32.0); MCHC 32.3 g/dL (32.0-37.0); MCV 92.5 FL (80.0-97.0); Mean Platelet Volume 9.5 FL (9.5-12.2); Monocytes # (A) 0.51 X 10*3/uL (0.20-1.00); NRBC Per 100 WBC 0 X 10*3/uL (0.00-0.01); Neutrophils # (A) 11.59 X 10*3/uL (1.80-7.70); Neutrophils % (A) 90.8 %; Platelet Count 281 X 10*3/uL (140-440); RBC 3.48 X 10*6/uL (4.10-5.20); RDW 13.1 % (11.5-14.5); WBC 12.77 X 10*3/uL (4.50-10.00)
[2024-11-18 10:13] LABS: BUN/Creat Ratio 19.71 Ratio (12.00-20.00); Blood Urea Nitrogen 13.8 mg/dL (9.0-27.0); Calcium 8.7 mg/dL (8.7-10.3); Carbon Dioxide 25.4 mmol/L (21.6-31.8); Chloride 105 mmol/L (96-109); Glucose 141 mg/dL (70-110); Potassium 4.1 mmol/L (3.5-5.5); Sodium 140 mmol/L (135-145)
[2024-11-18 11:03] LABS: Glucose,Whole Blood 127 mg/dL (70-110)
--- NOTE | 2024-11-18 14:46 | P.PN ---
Subjective Progress Note Date: 11/18/24 Follow-up with the patient and according to the nurse early in the morning today she was very confused talking nonsensical seems a bit agitated restless. We held her steroids as a result sick since it can cause psychosis. Her right side of her cheek is erythematous and the patient stated that that happens when she gets the IV steroids. According to the nurse she is doing better compared to much earlier in the morning. Objective - Vital Signs Vital signs: Vital Signs Temp 97.9 F 11/18/24 13:30 Pulse 72 11/18/24 13:30 Resp 18 11/18/24 13:30 BP 130/61 11/18/24 13:30 Pulse Ox 97 11/18/24 13:30 FiO2 Intake & Output 11/17/24 11/18/24 11/18/24 17:59 06:59 18:59 Intake Total Balance Intake: Oral Other: # Voids - Exam General: Lying in bed and is not in acute distress. Mildly agitated. Neuro: Awake alert oriented to self and time. Stated she is in [facility]. She is following simple commands. She is naming objects correctly. Pulls are round about 3 mm and reactive to light. No facial weakness. The right side of the cheek is erythematous. No dysarthria Motor the strength is somewhat limited in assessment because of her cooperation but was able to lift up upper and lower above gravity. Cerebellar is normal [id number] Some the work-up during this hospital visit consisted of: I reviewed labs. CT head: No acute bleed or mass effect. Age-appropiate senescent atrophy and ischemic white matter changes. No significant interval change. I personally reviewed CT and agree with report. - Labs CBC & Chem 7: 11/18/24 06:09 11/18/24 06:09 Labs: Abnormal Lab Results - Last 24 Hours (Table) 11/17/24 11/17/24 11/18/24 Range/Units 17:06 20:18 06:09 WBC 12.77 H (4.50-10.00) X 10*3/uL RBC 3.48 L (4.10-5.20) X 10*6/uL Hgb 10.4 L (12.0-15.0) g/dL Hct 32.2 L (37.2-46.3) % Immature Gran # 0.08 H (0.00-0.04) X 10*3/uL Neutrophils # 11.59 H (1.80-7.70) X 10*3/uL Lymphocytes # 0.58 L (0.90-5.00) X 10*3/uL Eosinophils # 0 L (0.04-0.35) X 10*3/uL Glucose (70-110) mg/dL POC Glucose (mg/dL) 279 H 155 H (70-110) mg/dL 11/18/24 11/18/24 11/18/24 Range/Units 06:09 06:11 11:02 WBC (4.50-10.00) X 10*3/uL RBC (4.10-5.20) X 10*6/uL Hgb (12.0-15.0) g/dL Hct (37.2-46.3) % Immature Gran # (0.00-0.04) X 10*3/uL Neutrophils # (1.80-7.70) X 10*3/uL Lymphocytes # (0.90-5.00) X 10*3/uL Eosinophils # (0.04-0.35) X 10*3/uL Glucose 141 H (70-110) mg/dL POC Glucose (mg/dL) 141 H 127 H (70-110) mg/dL Assessment and Plan Assessment: This is a 74-year-old woman with history of multiple sclerosis and it seems that she has not had her IV Ocrevus in the last couple months that was supposed be scheduled because of miscommunication/error. She is unsure about the exact timeframe. Yesterday she received IV Solu-Medrol 1 time in the ED. She feels drastically better today. Likely MS exacerbation and her symptoms are left-sided weakness dysarthria-- today is doing better. Any patient has delirium in slice likely due to medication (Steroids) due to psychosis as well as hospital induced delirium History of multiple sclerosis Plan: Will hold IV steroids since likely it is because her to have psychosis. Will obtain the MRI of the brain then we will decide how to proceed with further management Pending MRI of the brain and cervical spine with and without PT OT and ALL SOURCE INTELLIGENCE TECHNICIAN consulted Continue neurochecks Cardiac monitoring Prophylaxis I started the patient on famotidine. Upon discharge recommend the patient to follow-up with her outpatient neurologist, Dr. Rooney within 2-3 weeks. The plan discussed with the patient, and her family members who are bedside (, son). Also discussed the plan with her nurse. Time with Patient: Less than 30
[2024-11-18] MEDS ORDERED: HALOPERIDOL LACTATE 5 MG/ML 1 ML VIAL IM PRN (14:51)
[2024-11-18] MEDS: QUEtiapine 25 MG TAB PO SCH (15:36)
[2024-11-18 17:06] LABS: Glucose,Whole Blood 107 mg/dL (70-110)
[2024-11-18 17:59] LABS: Influenza A Detected (Not Detectd); Influenza B Not Detected (Not Detectd); RSV Not Detected (Not Detectd)
[2024-11-18 20:29] LABS: Glucose,Whole Blood 114 mg/dL (70-110)
[2024-11-18] MEDS ORDERED: QUEtiapine 25 MG TAB PO SCH (21:00)
--- NOTE | 2024-11-19 01:56 | PN ---
PROGRESS NOTE DATE OF SERVICE: 11/18/2024 SUBJECTIVE: This is a 74-year-old woman, who is admitted with possibly multiple sclerosis exacerbation and is on IV high-dose steroids. The patient, apparently, is confused, combative and restless. 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 MRI is pending at this time. PAST MEDICAL HISTORY: Reviewed. REVIEW OF SYSTEMS: Fourteen-point review of systems negative except as mentioned earlier. CURRENT MEDICATIONS: Reviewed. PHYSICAL EXAMINATION: VITAL SIGNS: Pulse 57, blood pressure 117/66, respirations 18. CHEST: Clear to auscultation. CARDIOVASCULAR: S1 and S2. ABDOMEN: Soft. NERVOUS SYSTEM: Diffusely weak. LABORATORY DATA: Noted. ASSESSMENT: 1. Left-sided weakness and dysarthria, possibly multiple sclerosis acute exacerbation. 2. 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 3. History of multiple sclerosis. 4. Gait dysfunction. 5. History of degenerative joint disease. 6. History of left knee replacement. 7. Full code. RECOMMENDATIONS: Recommended to continue current management and continue symptomatic treatment otherwise. I would recommend Seroquel and Haldol on a p.r.n. basis. Closely follow MRI. Prognosis is extremely guarded because of multiple complex medical issues. Further recommendations to follow. MMODL / IJN: [id number] /
[2024-11-19 06:29] LABS: Glucose,Whole Blood 101 mg/dL (70-110)
[2024-11-19 08:19] LABS: BUN/Creat Ratio 23.71 Ratio (12.00-20.00); Blood Urea Nitrogen 16.6 mg/dL (9.0-27.0); Carbon Dioxide 23.5 mmol/L (21.6-31.8); Chloride 106 mmol/L (96-109); Glucose 146 mg/dL (70-110); Potassium 3.5 mmol/L (3.5-5.5); Sodium 142 mmol/L (135-145)
[2024-11-19 08:20] LABS: Calcium 8.5 mg/dL (8.7-10.3)
[2024-11-19 09:05] LABS: Basophils # (A) 0.01 X 10*3/uL (0.00-0.10); Basophils % (A) 0.1 %; Eosinophils # (A) 0 X 10*3/uL (0.04-0.35); Eosinophils % (A) 0 %; HCT 32.6 % (37.2-46.3); HGB 10.6 g/dL (12.0-15.0); Lymphocytes % (A) 5.1 %; MCH 30.5 pg (27.0-32.0); MCHC 32.5 g/dL (32.0-37.0); MCV 93.9 FL (80.0-97.0); Mean Platelet Volume 9.9 FL (9.5-12.2); Monocytes # (A) 0.95 X 10*3/uL (0.20-1.00); Monocytes % (A) 5.4 %; NRBC Per 100 WBC 0 X 10*3/uL (0.00-0.01); Neutrophils # (A) 15.56 X 10*3/uL (1.80-7.70); Neutrophils % (A) 88.7 %; Platelet Count 316 X 10*3/uL (140-440); RBC 3.47 X 10*6/uL (4.10-5.20); RDW 13.4 % (11.5-14.5); WBC 17.54 X 10*3/uL (4.50-10.00)
[2024-11-19 11:51] LABS: Glucose,Whole Blood 76 mg/dL (70-110)
--- NOTE | 2024-11-19 15:02 | P.PN ---
Subjective Progress Note Date: 11/19/24 I am following up with the patient and according to the nurse she is more cooperative today compared to yesterday she is less agitated. Patient does not want to pursue MRI as an inpatient if it is not obtained today and she wants to go home. The is at bedside and he feels she needs rehab and that he cannot take care of her. Objective - Vital Signs Vital signs: Vital Signs Temp 98.2 F 11/19/24 08:45 Pulse 71 11/19/24 08:45 Resp 17 11/19/24 08:45 BP 123/72 11/19/24 08:45 Pulse Ox 94 L 11/19/24 08:45 FiO2 Intake & Output 11/18/24 11/19/24 11/19/24 18:59 06:59 18:59 Other: Voiding Method Bedside Commode Bedside Commode # Voids 5 1 # Bowel Movements 0 - Exam General: Sitting up in a chair and is not in acute distress. Neuro: Awake alert oriented to self, place and time. Is following simple commands. Pulls are round about 3 mm and reactive to light. No facial weakness. The right side of the cheek is erythematous. No dysarthria Motor the strength is somewhat limited has mild weakness over the left upper extremity otherwise rest are normal strength. Cerebellar is normal [id number] Some the work-up during this hospital visit consisted of: I reviewed labs. CT head: No acute bleed or mass effect. Age-appropiate senescent atrophy and ischemic white matter changes. No significant interval change. I personally r eviewed CT and agree with report. - Labs CBC & Chem 7: 11/19/24 02:19 11/19/24 02:19 Labs: Abnormal Lab Results - Last 24 Hours (Table) 11/18/24 11/18/24 11/19/24 Range/Units 17:00 20:26 02:19 WBC 17.54 H (4.50-10.00) X 10*3/uL RBC 3.47 L (4.10-5.20) X 10*6/uL Hgb 10.6 L (12.0-15.0) g/dL Hct 32.6 L (37.2-46.3) % Immature Gran # 0.12 H (0.00-0.04) X 10*3/uL Neutrophils # 15.56 H (1.80-7.70) X 10*3/uL Eosinophils # 0 L (0.04-0.35) X 10*3/uL Anion Gap (4.00-12.00) mmol/L BUN/Creatinine Ratio (12.00-20.00) Ratio Glucose (70-110) mg/dL POC Glucose (mg/dL) 114 H (70-110) mg/dL Calcium (8.7-10.3) mg/dL Influenza Type A (PCR) Detected A (Not Detectd) 11/19/24 Range/Units 02:19 WBC (4.50-10.00) X 10*3/uL RBC (4.10-5.20) X 10*6/uL Hgb (12.0-15.0) g/dL Hct (37.2-46.3) % Immature Gran # (0.00-0.04) X 10*3/uL Neutrophils # (1.80-7.70) X 10*3/uL Eosinophils # (0.04-0.35) X 10*3/uL Anion Gap 12.50 H (4.00-12.00) mmol/L BUN/Creatinine Ratio 23.71 H (12.00-20.00) Ratio Glucose 146 H (70-110) mg/dL POC Glucose (mg/dL) (70-110) mg/dL Calcium 8.5 L (8.7-10.3) mg/dL Influenza Type A (PCR) (Not Detectd) Assessment and Plan Assessment: This is a 74-year-old woman with history of multiple sclerosis and it seems that she has not had her IV Ocrevus in the last couple months that was supposed be scheduled because of miscommunication/error. She is unsure about the exact timeframe. Yesterday she received IV Solu-Medrol 1 time in the ED. She feels drastically better today. Likely MS exacerbation and her symptoms are left-sided weakness dysarthria--today is doing better. Any patient has delirium in slice likely due to medication (Steroids) due to psychosis as well as hospital induced delirium History of multiple sclerosis Plan: Will hold IV steroids since likely it is because her to have psychosis. Will obtain the MRI of the brain then we will decide how to proceed with further management Pending MRI of the brain and cervical spine with and without PT OT and CALL WORKER consulted Continue neurochecks Cardiac monitoring Prophylaxis I started the patient on famotidine. Upon discharge recommend the patient to follow-up with her outpatient neurologist, Dr. Rooney within 2-3 weeks. The plan discussed with the patient, and her was at bedside as well as her nurse. Patient was to be discharged home today but the feels that she needs rehab for at least 1 week in order for her to have her strength back. I spoke with the primary team nurse practitioner and she will have physical therapy reexamine her. Time with Patient: Less than 30
[2024-11-19 16:28] LABS: Glucose,Whole Blood 133 mg/dL (70-110)
[2024-11-19 20:30] LABS: Glucose,Whole Blood 80 mg/dL (70-110)
--- NOTE | 2024-11-19 21:51 | P.PN ---
Subjective Progress Note Date: 11/19/24 This is a 74-year-old female who was recently admitted with possible MS exacerbation had been recently started on high-dose IV steroids. Neurology following as patient follows with Dr. Rooney in the outpatient setting and has undergone high-dose steroids previously. Patient having increasing agitation and confusion and combative per nursing staff with concerns of steroid-induced psychosis, steroids were discontinued. Mentation is improved today and patient reports to feeling improved and would like to go home. at the bedside reports he cannot take care of her and she is significantly weak and has been having more falls and progressively becoming more weak. Will await PT/OT therapy evaluation. MRI brain is also ordered and pending at this time Review of systems: Constitutional: No reports of fatigue, fever, or chills Cardiovascular: No reports of chest pain or palpitations Respiratory: No reports of shortness of breath or cough GI: No reports of nausea, no reports of vomiting, no diarrhea : No reports of dysuria or retention Neurovascular: reports of generalized weakness, reports to feeling improved and at baseline All medications have been reviewed PHYSICAL EXAMINATION: GENERAL: The patient is alert and oriented x3, baseline. Well developed, elderly appearing, ill-appearing, thin built HEENT: Pupils are round and equally reacting to light. EOMI. no scleral icterus. No conjunctival pallor. Normocephalic, atraumatic. No pharyngeal erythema. No thyromegaly. CARDIOVASCULAR: S1 and S2 muffled PULMONARY: diminished breath sounds bilaterally with no wheezing or rhonchi noted. ABDOMEN: soft. Nontender on exam. Thin. non-distended, normoactive bowel soun ds. No palpable organomegaly. MUSCULOSKELETAL: No joint swelling or deformity. EXTREMITIES: No cyanosis, clubbing, or pedal edema. Diffusely weak NEUROLOGICAL: Gross neurological examination did not reveal any focal deficits. Diffuse weakness SKIN: No rashes. Assessment: Left-sided weakness and dysarthria, likely MS exacerbation Change in mental status, multifactorial, possibly medication effect with steroids as well as hospital-acquired delirium History of multiple sclerosis follows with Dr. Rooney outpatient History of degenerative joint disease History of left knee replacement Generalized weakness with gait dysfunction GI prophylaxis DVT prophylaxis Full code Plan: Recommend to continue with current medications and management with neurology following. MRI of the brain is ordered and pending and given patient's symptoms, neurology awaiting MRI for further recommendations. 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 Will await PT/OT therapy reevaluation and discussed with case management regarding discharge planning Patient will need outpatient follow-up with her primary neurologist Possible discharge planning in the next 24 to 48 hours The impression and plan of care has been dictated by Lexi Avelar, nurse practitioner as directed. Dr. Julita MD I have performed a history and examination and MDM of this patient, discussed the same with the dictator, and agree with the dictator's assessment and plan as written ,documented as a scribe. Based on total visit time, I have performed more than 50% of the visit. Any additional findings or plans will be noted. Objective - Vital Signs Vital signs: Vital Signs Temp 98.2 F 11/19/24 08:45 Pulse 71 11/19/24 08:45 Resp 17 11/19/24 08:45 BP 123/72 11/19/24 08:45 Pulse Ox 94 L 11/19/24 08:45 FiO2 Intake & Output 11/18/24 11/19/24 11/19/24 18:59 06:59 18:59 Other: Voiding Method Bedside Commode Bedside Commode # Voids 5 1 # Bowel Movements 0 - Labs CBC & Chem 7: 11/19/24 02:19 11/19/24 02:19 Labs: Abnormal Lab Results - Last 24 Hours (Table) 11/18/24 11/18/24 11/18/24 Range/Units 11:02 17:00 20:26 WBC (4.50-10.00) X 10*3/uL RBC (4.10-5.20) X 10*6/uL Hgb (12.0-15.0) g/dL Hct (37.2-46.3) % Immature Gran # (0.00-0.04) X 10*3/uL Neutrophils # (1.80-7.70) X 10*3/uL Eosinophils # (0.04-0.35) X 10*3/uL Anion Gap (4.00-12.00) mmol/L BUN/Creatinine Ratio (12.00-20.00) Ratio Glucose (70-110) mg/dL POC Glucose (mg/dL) 127 H 114 H (70-110) mg/dL Calcium (8.7-10.3) mg/dL Influenza Type A (PCR) Detected A (Not Detectd) 11/19/24 11/19/24 Range/Units 02:19 02:19 WBC 17.54 H (4.50-10.00) X 10*3/uL RBC 3.47 L (4.10-5.20) X 10*6/uL Hgb 10.6 L (12.0-15.0) g/dL Hct 32.6 L (37.2-46.3) % Immature Gran # 0.12 H (0.00-0.04) X 10*3/uL Neutrophils # 15.56 H (1.80-7.70) X 10*3/uL Eosinophils # 0 L (0.04-0.35) X 10*3/uL Anion Gap 12.50 H (4.00-12.00) mmol/L BUN/Creatinine Ratio 23.71 H (12.00-20.00) Ratio Glucose 146 H (70-110) mg/dL POC Glucose (mg/dL) (70-110) mg/dL Calcium 8.5 L (8.7-10.3) mg/dL Influenza Type A (PCR) (Not Detectd)
[2024-11-20 06:13] LABS: Glucose,Whole Blood 92 mg/dL (70-110)
[2024-11-20 08:44] LABS: BUN/Creat Ratio 26.14 Ratio (12.00-20.00); Blood Urea Nitrogen 18.3 mg/dL (9.0-27.0); Chloride 106 mmol/L (96-109); Glucose 76 mg/dL (70-110); Potassium 4.1 mmol/L (3.5-5.5); Sodium 141 mmol/L (135-145)
[2024-11-20 08:45] LABS: Calcium 8.4 mg/dL (8.7-10.3); Carbon Dioxide 24.3 mmol/L (21.6-31.8)
--- NOTE | 2024-11-20 13:55 | MR ---
EXAMINATION TYPE: MR brain/cspine wo/w DATE OF EXAM: 11/20/2024 1:21 PM COMPARISON: Most recent MRI July 31, 2021 CLINICAL INDICATION: Female, 74 years old with history of ms exacerbation. dysarthria and weakness, Dysarthria, weakness, MS exacerbation. IV Contrast: 6 cc Gadobutrol (None if empty) TECHNIQUE: Multiplanar, multisequence images of the brain and brainstem and cervical spine performed without and with IV contrast, utilizing 6 mL intravenous Gadobutrol . FINDINGS: BRAIN: Diffusion weighted images demonstrate no evidence of a recent infarct or other diffusion abnormality. There is mild to moderate ventricular and sulcal prominence redemonstrated. There are multifocal an d confluent areas of T2 hyperintensity seen throughout the white matter bilaterally most prominent at the periventricular levels redemonstrated. The lesions are grossly stable in appearance from prior study. Multifocal T1 hypointense lesions are redemonstrated. Definitive new or enhancing lesions iden tified. Midline structures demonstrate normal morphology. The craniocervical junction appears within normal limits. The dural venous sinuses appear patent. The visualized sinuses are clear and the globes are intact. IMPRESSION: Persistent mild to moderate diffuse cerebral atrophy and advanced white matter changes li ninoska on basis of known multiple sclerosis. No definitive new or enhancing lesions. No significant yayo nge from prior MRI. C-SPINE: Sagittal images of the cervical spine show the craniocervical junction to remain within normal limits . There is suspected persistent subtle area of increased signal in the posterior aspect of the spinal cord at C5-C6 level sagittal image 10 series 1201 which is similar to prior. Vertebral alignment is stable and straightened. The vertebral body heights are normal. Moderate disc space narrowing and s purring with heterogeneous Modic type II endplate changes at C4-C5 level. Mild disc space narrowing a nd moderate anterior spurring C6-C7 level. No abnormal enhancement or enhancing lesions. Axial images show C2-C3 levels remain within normal limits. Axial images at C3-C4 level redemonstrate uncovertebral facet degenerative changes causing mild bilat eral neural foraminal narrowing. Axial images at C4-C5 level show largest spur disc complex effacing the anterior thecal sac up to librado tral surface of spinal cord which is slightly effaced and flattened similar to prior. There is uncove rtebral facet degenerative changes causing [id number] bilateral neural foraminal narrowing. No significant change from prior. Axial images at C5-C6 level shows uncovertebral facet spurring causing mild bilateral neural foramina l narrowing. Subtle increased posterior cord signal is confirmed. Axial images at C6-C7 level show posterior broad-based spur disc complex effacing the anterior thecal sac and causing mild/moderate left greater than right bilateral neural foraminal narrowing similar t o prior. Axial images at C7-T1 levels remain within normal limits. IMPRESSION: Stable subtle area of demyelinating disease involvement posterior C5-C6 level. Stable mul tilevel degenerative changes greatest at C4-C5 and C6-C7 levels as detailed above. [facility], , 11/20/2024 1:52 PM
--- NOTE | 2024-11-20 14:49 | P.PN ---
Subjective Progress Note Date: 11/20/24 Patient was evaluated wound through PT and they feel she is weak on the left side and that she needs rehab. Patient is at bedside and he agrees that she needs rehab since she cannot take care of her at home. Objective - Vital Signs Vital signs: Vital Signs Temp 99.4 F 11/20/24 07:35 Pulse 101 H 11/20/24 10:51 Resp 16 11/20/24 07:35 BP 135/76 11/20/24 07:35 Pulse Ox 88 L 11/20/24 10:51 FiO2 Intake & Output 11/19/24 11/20/24 11/20/24 18:59 06:59 18:59 Other: Voiding Method Toilet Toilet # Voids 2 1 - Exam General: Sitting up in a chair and is not in acute distress. Neuro: Awake alert oriented to self, place and time. Is following simple commands. Pulls are round about 3 mm and reactive to light. No facial weakness. The right side of the cheek is erythematous. No dysarthria Motor the strength is somewhat limited has mild weakness over the left upper extremity otherwise rest are normal strength. Cerebellar is normal [id number] Some the work-up during this hospital visit consisted of: I reviewed labs. CT head: No acute bleed or mass effect. Age-appropiate senescent atrophy and ischemic white matter changes. No significant interval change. I personally reviewed CT and agree with report. - Labs CBC & Chem 7: 11/19/24 02:19 11/20/24 02:51 Labs: Abnormal Lab Results - Last 24 Hours (Table) 11/19/24 11/20/24 Range/Units 16:27 02:51 BUN/Creatinine Ratio 26.14 H (12.00-20.00) Ratio POC Glucose (mg/dL) 133 H (70-110) mg/dL Calcium 8.4 L (8.7-10.3) mg/dL Assessment and Plan Assessment: This is a 74-year-old woman with history of multiple sclerosis and it seems that she has not had her IV Ocrevus in the last couple months that was supposed be scheduled because of miscommunication/error. She is unsure about the exact timeframe. Yesterday she received IV Solu-Medrol 1 time in the ED. She feels drastically better today. Likely MS exacerbation and her symptoms are left-sided weakness dysarthria--today is doing better. Any patient has delirium in slice likely due to medication (Steroids) due to psychosis as well as hospital induced delirium History of multiple sclerosis Plan: Will hold IV steroids since likely it is because her to have psychosis. Will obtain the MRI of the brain then we will decide how to proceed with further management Pending MRI of the brain and cervical spine with and without PT OT and PHYSICAL THERAPY DIRECTOR consulted they feel she is weak and she needs rehab. Continue neurochecks Cardiac monitoring Prophylaxis IOn famotidine. Upon discharge recommend the patient to follow-up with her outpatient neurologist, Dr. Rooney within 2-3 weeks. The plan discussed with the patient and her was at bedside as well as her nurse. Time with Patient: Less than 30
[2024-11-20 16:53] LABS: Glucose,Whole Blood 105 mg/dL (70-110)
[2024-11-20 20:31] LABS: Glucose,Whole Blood 118 mg/dL (70-110)
[2024-11-21 06:12] LABS: Glucose,Whole Blood 110 mg/dL (70-110)
--- NOTE | 2024-11-21 06:19 | P.PN ---
Subjective Progress Note Date: 11/20/24 This is a 74-year-old female who was recently admitted with possible MS exacerbation had been recently started on high-dose IV steroids. Neurology following as patient follows with Dr. Rooney in the outpatient setting and has undergone high-dose steroids previously. Patient having increasing agitation and confusion and combative per nursing staff with concerns of steroid-induced psychosis, steroids were discontinued. Mentation is improved today and patient reports to feeling improved and would like to go home. at the bedside reports he cannot take care of her and she is significantly weak and has been having more falls and progressively becoming more weak. Will await PT/OT therapy evaluation. MRI brain is also ordered and pending at this time 11/20/2024 Patient is seen in follow-up today and being followed by neurology MRI of the brain is ordered and pending today. Patient is significantly weak today and recommend reevaluation by physical therapy as patient is extremely unsteady and would benefit from rehab. Insurance denied authorization recommending a peer to peer which will be performed today. Patient is afebrile denies chest pain or shortness of breath. Patient also with influenza A. Review of systems: Constitutional: reports of fatigue, no fever, or chills Cardiovascular: No reports of chest pain or palpitations Respiratory: No reports of shortness of breath or cough GI: No reports of nausea, no reports of vomiting, no diarrhea : No reports of dysuria or retention Neurovascular: reports of generalized weakness, reports to feeling significantly weak today All medications have been reviewed PHYSICAL EXAMINATION: GENERAL: The patient is alert and oriented x3, baseline. Well developed, elderly appearing, ill-appearing, thin built HEENT: Pupils are round and equally reacting to light. EOMI. no scleral icterus. No conjunctival pallor. Normocephalic, atraumatic. No pharyngeal erythema. No thyromegaly. CARDIOVASCULAR: S1 and S2 muffled PULMONARY: diminished breath sounds bilaterally with no wheezing or rhonchi noted. ABDOMEN: soft. Nontender on exam. Thin. non-distended, normoactive bowel sounds. No palpable organomegaly. MUSCULOSKELETAL: No joint swelling or deformity. EXTREMITIES: No cyanosis, clubbing, or pedal edema. Diffusely weak NEUROLOGICAL: Gross neurological examination did not reveal any focal deficits. Diffuse weakness SKIN: No rashes. Assessment: Left-sided weakness and dysarthria, likely MS exacerbation Change in mental status, multifactorial, possibly medication effect with steroids as well as hospital-acquired delirium, improving History of multiple sclerosis follows with Dr. Rooney outpatient History of degenerative joint disease Acute influenza A infection History of left knee replacement Generalized weakness with gait dysfunction GI prophylaxis DVT prophylaxis Full code Plan: Recommend to continue with current medications and management with neurology following. MRI of the brain is ordered and pending and given patient's symptoms, neurology awaiting MRI for further recommendations. MRI is scheduled for sometime this afternoon Patient's mentation is improved and recommend to hold steroids as patient probably developed steroid-induced psychosis Concerns for hospital-acquired delirium and will continue Seroquel Awaiting PT/OT therapy notes and will need a reevaluation as patient is significantly weak and family at the bedside reports she is not safe to return home and has been progressively more weak and he cannot take care of her in the home recommending rehab short-term for continued strength and mobility. Per case management insurance denied recommending peer to peer which was performed and discussed with Dr. Whiting who will approve for ECF for continued strength and mobility Patient will need outpatient follow-up with her primary neurologist Possible discharge planning in the next 24 hours to ECF The impression and plan of care has been dictated by Lexi Avelar, nurse practitioner as directed. Dr. Julita MD I have performed a history and examination and MDM of this patient, discussed the same with the dictator, and agree with the dictator's assessment and plan as written ,documented as a scribe. Based on total visit time, I have performed more than 50% of the visit. Any additional findings or plans will be noted. Objective - Vital Signs Vital signs: Vital Signs Temp 99.4 F 11/20/24 07:35 Pulse 94 11/20/24 07:35 Resp 16 11/20/24 07:35 BP 135/76 11/20/24 07:35 Pulse Ox 90 L 11/20/24 07:35 FiO2 Intake & Output 11/19/24 11/20/24 11/20/24 18:59 06:59 18:59 Other: Voiding Method Toilet # Voids 2 1 - Labs CBC & Chem 7: 11/19/24 02:19 11/20/24 02:51 Labs: Abnormal Lab Results - Last 24 Hours (Table) 11/19/24 11/20/24 Range/Units 16:27 02:51 BUN/Creatinine Ratio 26.14 H (12.00-20.00) Ratio POC Glucose (mg/dL) 133 H (70-110) mg/dL Calcium 8.4 L (8.7-10.3) mg/dL
[2024-11-21 07:28] VITALS: BP 125/75; PULSE 96; RESP 17; TEMP 99.2
[2024-11-21 11:26] LABS: Glucose,Whole Blood 160 mg/dL (70-110)
--- NOTE | 2024-11-21 14:42 | P.PN ---
Subjective Progress Note Date: 11/21/24 I am following up with the patient and it seems that she is having fluctuation in mentation. I was notified by the nurse that Dea arnett evaluated her but the patient was too sleepy as a result Dea did not feel she was a candidate for rehab because she could not cooperate. The nurse will attempt to have the manager of case management assess her situation again for rehab. Objective - Vital Signs Vital signs: Vital Signs Temp 99.2 F 11/21/24 07:06 Pulse 96 11/21/24 07:06 Resp 17 11/21/24 07:06 BP 125/75 11/21/24 07:06 Pulse Ox 93 L 11/21/24 07:06 FiO2 Intake & Output 11/20/24 11/21/24 11/21/24 18:59 06:59 18:59 Other: Voiding Method Toilet Toilet Toilet # Voids 2 2 - Exam General: Sitting up in a chair and is not in acute distress. Neuro: Is drowsy but is awake able to voice. She is oriented to self and place. Examination she was sleepy but seems less agitated and cooperative today. Is following simple commands. Pulls are round about 3 mm and reactive to light. No facial weakness. No dysarthria Motor the strength is somewhat limited because of her overall cooperation but was able to lift up all extremities after multiple attempts. Was able to lift up above gravity of all extremities. Unable to assess individual muscle strength. Cerebellar is normal [id number] Some the work-up during this hospital visit consisted of: I reviewed labs. CT head: No acute bleed or mass effect. Age-appropiate senescent atrophy and ischemic white matter changes. No significant interval change. I personally reviewed CT and agree with report. MRI of the brain is reported as persistent mild to moderate diffuse cerebral atrophy and advanced white matter changes likely on the basis of known multiple sclerosis. No definite new or enhancing lesion. No significant change from prior. MRI of the cervical spine is reported as stable subpleural area of demyelinating disease involving posterior C5-C6 level. Stable multilevel degenerative changes greatest at C4-C5 and C6-C7 level. - Labs CBC & Chem 7: 11/19/24 02:19 11/20/24 02:51 Labs: Abnormal Lab Results - Last 24 Hours (Table) 11/20/24 11/21/24 Range/Units 20:29 11:25 POC Glucose (mg/dL) 118 H 160 H (70-110) mg/dL Assessment and Plan Assessment: This is a 74-year-old woman with history of multiple sclerosis and it seems that she has not had her IV Ocrevus in the last couple months that was supposed be scheduled because of miscommunication/error. She is unsure about the exact timeframe. Yesterday she received IV Solu-Medrol 1 time in the ED. She feels drastically better today. Probable MS exacerbation and her symptoms are left-sided weakness dysarthria--she received very few doses of steroids and initially she got 1 dose in the ED and next day she was drastically better but then when we tried to schedule for 3 days patient was agitated restless so was discontinued because of concern for steroid-induced psychosis. But even after discontinuing she is having fluctuation of mentation and likely she is having delirium. MRI of the brain and cervical spine does not show any new lesion or any enhancement suggestive of MS exacerbation radiographically. History of multiple sclerosis Noncompliance with medication Plan: PT OT and [employer] consulted. Therapy recommended rehab and today she was evaluated by Dea morel who per the nurse was notified patient was not cooperative. The nurse will have the manager of case management reevaluate the patient. Continue neurochecks Cardiac monitoring Upon discharge recommend the patient to follow-up with her outpatient neurologist, Dr. Rooney within 2-3 weeks. ADDENDUM: I spoke with the patient's son via phone and I updated him about the MRI findings. The son stated the patient's last IV Ocrevus was in April 2024. The son was upset that the patient will be discharged home and I notified him that was not the plan. Also the son stated that the patient is comatose since the patient is drowsy. I notified him that the patient is not comatose. Son was upset that the IV Ocrevus will not be covered by insurance. Notified him that as an outpatient issue and that he needs to follow-up with her neurologist regarding that medication. From a neurologic perspective, recommend IVIG 0.4 g/kg/day for 3 days for concern for possible MS exacebation. Also from neurology perspective identified son that the patient needs rehab as recommended by therapy Updated the patient nurse as well as primary team nurse practitioner. Total time on care of patient was 45 minutes Time with Patient: Greater than 30
--- NOTE | 2024-11-21 15:40 | P.DS ---
Providers Date of admission: 11/17/24 03:50 Expected date of discharge: 11/20/24 Attending physician: Eldon aCrrion MD Consults: 11/17/24 03:50 Consult Physician Urgent Consulting Provider: True Fairchild Consult Reason/Comments: dysarthria, weakness, possible ms exacerbation Do you want consulting provider notified?: Yes Primary care physician: Shady Vivas Hospital Course: Final diagnosis Left-sided weakness and dysarthria, likely MS exacerbation Change in mental status, multifactorial, possibly medication effect with steroids as well as hospital-acquired delirium, improving History of multiple sclerosis follows with Dr. Lopes outpatient History of degenerative joint disease Acute influenza A infection History of left knee replacement Generalized weakness with gait dysfunction GI prophylaxis DVT prophylaxis Full code Discharge disposition Patient is being discharged in a stable condition with guarded prognosis to [facility]. Patient will follow-up with Dr. Vivas in the outpatient setting upon discharge. Patient is to continue with close outpatient follow-up with neurologist Dr. Lopes as scheduled. Patient to follow-up outpatient regarding Ocrevus infusions once discharged from [facility]. Total time taken is greater than 35 minutes. Hospital course This is a 74-year-old female who was recently admitted with left-sided weakness and dysarthria with concerns of MS exacerbation. Patient underwent neurological workup including MRI of the brain with no new lesions noted. Patient follows with Dr. Lopes outpatient and has been receiving Ocrevus infusions although has not received one since March and unsure if this was due to noncompliance or insurance issues outpatient. Family concerned with severe weakness and inabili ty to care for herself and evaluated by PT/OT therapy recommending rehab and patient is now agreeable. Patient family concerned she is not receiving infusions although attempted large dose IV steroids and patient had acute psychosis likely steroid-induced which was discontinued and mentation improved. Patient's mentation waxes and wanes and had been receiving Seroquel twice daily which she normally does not take and had been off and on sedated throughout the day. Will adjust Seroquel and make as needed at night for agitation otherwise mentation is baseline. Patient with significant weakness has been accepted at [facility] and will be going there for PT/OT therapy for strength and mobility. Patient and family are aware her infusions with neurology is on an outpatient basis and not covered by insurance other than prior authorization with her neurologist. Patient will not be receiving infusions during ECF and is agreeable to this. Currently no reports of chest pain, shortness of breath, or palpitations. Patient is afebrile. No reports of nausea or vomiting and patient is tolerating diet. Patient will be going to [facility] today. High risk for readmissions given significant comorbidities. Physical exam: Gen: This is a 74-year-old female who is awake, alert and oriented x 2-3, baseline, well-developed, elderly appearing, thin built, ill-appearing HEENT: Head is atraumatic, normocephalic. Pupils equal, round. Sclerae is anicteric. NECK: Supple. No JVD. No lymphadenopathy. No thyromegaly. LUNGS: Diminished breath sounds bilaterally otherwise clear to auscultation. No wheezes or rhonchi. No intercostal retractions. HEART: S1, S2 are muffled ABDOMEN: Soft. Thin. bowel sounds are present. No masses. No tenderness. EXTREMITIES: No pedal edema. No calf tenderness. NEUROLOGICAL: Patient is awake, alert and oriented x3. Cranial nerves 2 through 12 are grossly intact. Please refer to medication reconciliation sheet for a list of medications. The impression and plan of care has been dictated by Lexi Avelar, Nurse Practitioner as directed. Dr. Julita MD I have performed a history and examination and MDM of this patient, discussed the same with the dictator, and agree with the dictator's assessment and plan as written ,documented as a scribe. Based on total visit time, I have performed more than 50% of the visit. Patient Condition at Discharge: Stable Plan - Discharge Summary Discharge Rx Participant: No New Discharge Prescriptions: New Famotidine [Pepcid] 20 mg PO BID tab Heparin Sodium,Porcine (1 ml) [Heparin Sodium] 5,000 unit SQ Q12HR each INSULIN LISPRO (HumaLOG) [HumaLOG] 0 unit SQ ACHS each Pantoprazole [Protonix] 40 mg PO AC-BRKFST tab QUEtiapine [SEROquel] 12.5 mg PO HS PRN #2 tab PRN Reason: Agitation Continue oxyBUTYnin chloride [Ditropan] 5 mg PO TID Cetirizine HCl [Zyrtec] 10 mg PO DAILY Simvastatin [Zocor] 20 mg PO HS Multivitamins, Thera [Multivitamin (formulary)] 1 tab PO DAILY Cholecalciferol [Vitamin D3 (25 Mcg = 1000 Iu)] 25 mcg PO DAILY HYDROcodone/APAP 10-325MG [[place] 10-325] 1 tab PO DAILY PRN #6 tab PRN Reason: Pain Discharge Medication List Cetirizine HCl [Zyrtec] 10 mg PO DAILY 11/17/24 [History] Cholecalciferol [Vitamin D3 (25 Mcg = 1000 Iu)] 25 mcg PO DAILY 11/17/24 [History] Multivitamins, Thera [Multivitamin (formulary)] 1 tab PO DAILY 11/17/24 [History] oxyBUTYnin chloride [Ditropan] 5 mg PO TID 11/17/24 [History] Simvastatin [Zocor] 20 mg PO HS 11/19/24 [History] Famotidine [Pepcid] 20 mg PO BID tab 11/21/24 [Rx] HYDROcodone/APAP 10-325MG [[place] 10-325] 1 tab PO DAILY PRN #6 tab 11/21/24 [Rx] Heparin Sodium,Porcine (1 ml) [Heparin Sodium] 5,000 unit SQ Q12HR each 11/21/24 [Rx] INSULIN LISPRO (HumaLOG) [HumaLOG] 0 unit SQ ACHS each 11/21/24 [Rx] Pantoprazole [Protonix] 40 mg PO AC-BRKFST tab 11/21/24 [Rx] QUEtiapine [SEROquel] 12.5 mg PO HS PRN #2 tab 11/21/24 [Rx] Follow up Appointment(s)/Referral(s): Daljit Rooney MD [Medical Doctor] - 1 Week Shady Vivas DO [Primary Care Provider] - 1-2 days Activity/Diet/Wound Care/Special Instructions: Patient will be going to [facility] Activity as tolerated Follow-up with neurology in 1 to 2 weeks Continue taking medications as prescribed Patient will need to follow-up with her primary neurologist outpatient to resume Ocrevus infusions which is only authorized outpatient and with prior authorization from neurology. Patient is agreeable that she will not natali receiving these treatments while at [facility] and is to go to [facility] for continued PT/OT therapy services for improvements in her strength and mobility. Discharge Disposition: TRANSFER TO SNF/ECF
== END 2024-11-21 16:57 | DRG 59 ==
LOC: EC 23:33 → 4SSUR 11-17 03:50
PROVIDERS: ADMIT Internal Medicine; ATTEND Internal Medicine
DX: G35 Multiple sclerosis (principal); F05 Delirium due to known physiological condition; F23 Brief psychotic disorder; M19.90 Unspecified osteoarthritis, unspecified site; R26.9 Unspecified abnormalities of gait and mobility; R47.1 Dysarthria and anarthria; R47.81 Slurred speech; J10.1 Influenza due to other identified influenza virus with other respiratory manifestations; T38.0X5A Adverse effect of glucocorticoids and synthetic analogues, initial encounter; Z79.899 Other long term (current) drug therapy; Z87.891 Personal history of nicotine dependence; Z91.148 Patient's other noncompliance with medication regimen for other reason; Z96.652 Presence of left artificial knee joint; Z20.822 Contact with and (suspected) exposure to COVID-19
CPT/HCPCS: 36415; 70450; 70553; 71045; 72156; 80048; 80053; 80320; 81001; 83036; 84484; 85025; 85610; 85730; 87636; 93005; 96365; 96375; 99285

== ENCOUNTER 2025-01-19 12:01 | Emergency (ER) | payer MEDICARE ==
--- NOTE | 2025-01-19 12:10 | ED ---
General Adult HPI - General Chief complaint: Extremity Injury, Lower Stated complaint: R hip pain Time Seen by Provider: 01/19/25 12:08 Source: patient, family Mode of arrival: wheelchair Limitations: no limitations - History of Present Illness Initial comments: Patient brought to the ED from urgent care by her son and granddaughter for evaluation. Patient states that she had a mechanical fall yesterday morning, landing on her right hip. Patient states that she has had right lateral hip pain since then. Patient states that she has been ambulatory since this injury, but very gingerly. Family reports that the patient had x-rays performed at urgent care today, and the radiologist's report (reviewed myself) states that the patient has a nondisplaced right greater trochanteric fracture with recommendation for CT for further evaluation, so the patient was advised to come to the ED. Patient denies any other injury or site of pain. Patient denies anticoagulant medication use. Patient denies head injury, headache, LOC/syncope, neck/back/upper extremity pain, chest pain, dyspnea, dizziness, abdominal pain, nausea or vomiting, focal neuro deficit, or any other symptoms or complaints. Patient declines pain medication at this time. - Related Data Home Medications Medication Instructions Recorded Confirmed Cetirizine HCl [Zyrtec] 10 mg PO DAILY 11/17/24 11/17/24 Cholecalciferol [Vitamin D3 (25 25 mcg PO DAILY 11/17/24 11/17/24 Mcg = 1000 Iu)] Multivitamins, Thera [Multivitamin 1 tab PO DAILY 11/17/24 11/17/24 (formulary)] oxyBUTYnin chloride [Ditropan] 5 mg PO TID 11/17/24 11/17/24 Simvastatin [Zocor] 20 mg PO HS 11/19/24 11/19/24 Previous Rx's Medication Instructions Recorded Famotidine [Pepcid] 20 mg PO BID tab 11/21/24 HYDROcodone/APAP 10-325MG [[place] 1 tab PO DAILY PRN #6 tab 11/21/24 10-325] Heparin Sodium,Porcine (1 ml) 5,000 unit SQ Q12HR each 11/21/24 [Heparin Sodium] INSULIN LISPRO (HumaLOG) [HumaLOG] 0 unit SQ ACHS each 11/21/24 Pantoprazole [Protonix] 40 mg PO AC-BRKFST tab 11/21/24 QUEtiapine [SEROquel] 12.5 mg PO HS PRN #2 tab 11/21/24 Allergies Allergy/AdvReac Type Severity Reaction Status Date / Time No Known Allergies Allergy Verified 01/19/25 12:06 Review of Systems ROS Statement: Those systems with pertinent positive or pertinent negative responses have been documented in the HPI. ROS Other: All systems not noted in ROS Statement are negative. Past Medical History Past Medical History: Neurologic Disorder Additional Past Medical History / Comment(s): MS History of Any Multi-Drug Resistant Organisms: None Reported Past Surgical History: Section, Orthopedic Surgery, Tonsillectomy Additional Past Surgical History / Comment(s): left knee replacement Past Anesthesia/Blood Transfusion Reactions: No Reported Reaction Past Psychological History: No Psychological Hx Reported Smoking Status: Former smoker Past Alcohol Use History: Rare Past Drug Use History: None Reported General Exam Limitations: no limitations General appearance: alert Head exam: Present: atraumatic, normocephalic Eye exam: Present: normal appearance ENT exam: Present: mucous membranes moist Neck exam: Present: full ROM. Absent: tenderness Respiratory exam: Present: normal lung sounds bilaterally. Absent: respiratory distress, wheezes, rales, rhonchi, stridor, chest wall tenderness Cardiovascular Exam: Present: regular rate, normal rhythm, normal heart sounds, other (Normal dorsalis pedis pulses bilaterally) GI/Abdominal exam: Present: soft. Absent: distended, tenderness, guarding Extremities exam: Present: other (Pelvis is stable; right lateral hip tenderness and pain with movement at right hip). Absent: pedal edema Back exam: Present: full ROM. Absent: tenderness Neurological exam: Present: alert, oriented X3. Absent: motor sensory deficit Psychiatric exam: Present: normal affect Skin exam: Present: warm, dry, intact, normal color Course Vital Signs 01/19/25 12:03 Temperature 98.0 F Pulse Rate 65 Respiratory 17 Rate Blood Pressure 161/88 O2 Sat by Pulse 98 Oximetry - Reevaluation(s) Reevaluation #1: 01/19/25 13:00 Case, H&P and CT findings were discussed with Dr. Olivas (orthopedic surgery). He feels that the patient can be managed nonoperatively with 50% weightbearing (with walker or cane) and outpatient follow-up in his clinic. He has no further recommendations at this time. 01/19/25 13:05 Patient and family are aware the patient's CT findings and my discussion with Dr. Olivas as above. They all feel comfortable with the patient being discharged home at this time. Patient was advised to take it easy and only weight-bear gingerly on her right leg. Patient states that she has a walker at home that she can use. Patient was instructed to follow-up with Dr. Olivas in his clinic in about a week's time for repeat x-rays, and she agrees to do so. Patient was counseled about falls and femur fractures. She was clearly explained return and follow-up instructions, and she feels comfortable with this plan. Medical Decision Making - Medical Decision Making Was pt. sent in by a medical professional or institution (, TERELL, PANEL ASSEMBLER, urgent care, hospital, or care home...) When possible be specific @ -No Did you speak to anyone other than the patient for history (EMS, parent, family, police, friend...)? What history was obtained from this source @ -History was also provided by the patient's family. Did you review nursing and triage notes (agree or disagree)? Why? @ -I reviewed and agree with nursing and triage notes Were old charts reviewed (outside hosp., previous admission, EMS record, old EKG, old radiological studies, urgent care reports/EKG's, care home records)? Report findings @ -Urgent care right hip x-ray report was reviewed myself. Differential Diagnosis (chest pain, altered mental status, abdominal pain women, abdominal pain men, vaginal bleeding, weakness, fever, dyspnea, syncope, headache, dizziness, GI bleed, back pain, seizure, CVA, palpatations, mental health, musculoskeletal)? @ -Fall, contusion, sprain, strain, fracture, dislocation, this is not meant to be a complete list. EKG interpreted by me (3pts min.). @ -None done X-rays interpreted by me (1pt min.). @ -None done CT interpreted by me (1pt min.). @ -Noncontrast right hip CT was reviewed myself and shows a minimally displaced right greater trochanter fracture. I agree with the radiologist's interpretation as above. U/S interpreted by me (1pt. min.). @ -None done What testing was considered but not performed or refused? (CT, X-rays, U/S, labs)? Why? @ -None What meds were considered but not given or refused? Why? @ -Patient declined pain medication in the ED. Did you discuss the management of the patient with other professionals (professionals i.e. , PA, PANEL ASSEMBLER, lab, RT, psych nurse, social work administrator, pediatric rn, teacher, immigration services officer, window caser)? Give summary @ -As above. Was smoking cessation discussed for >3mins.? @ -No Was critical care preformed (if so, how long)? @ -No Were there social determinants of health that impacted care today? How? (Homelessness, low income, unemployed, alcoholism, drug addiction, transportation, low edu. Level, literacy, decrease access to med. care, correction, rehab)? @ -No Was there de-escalation of care discussed even if they declined (Discuss DNR or withdrawal of care, Hospice)? DNR status @ -No What co-morbidities impacted this encounter? (DM, HTN, Smoking, COPD, CAD, Cancer, CVA, ARF, Chemo, Hep., AIDS, mental health diagnosis, sleep apnea, morbid obesity)? @ -None Was patient admitted / discharged? Hospital course, mention meds given and route, prescriptions, significant lab abnormalities, going to OR and other pertinent info. @ -Patient reports being ambulatory since her fall yesterday. Patient CT demonstrates a minimally displaced right greater trochanter fracture. Case was discussed with the on-call orthopedic surgeon who recommends nonoperative/outpatient treatment. Patient feels comfortable being discharged home with her family at this time. Patient states that she has a walker at home that she will use. Patient was provided with a starter pack of Tylenol 3's. She was clearly explained return and follow-up instructions. She feels comfortable with this plan. Undiagnosed new problem with uncertain prognosis? @ -No Drug Therapy requiring intensive monitoring for toxicity (Heparin, Nitro, Insulin, Cardizem)? @ -No Were any procedures done? @ -No Diagnosis/symptom? @ -Fall, right greater trochanter fracture Acute, or Chronic, or Acute on Chronic? @ -Acute Uncomplicated (without systemic symptoms) or Complicated (systemic symptoms)? @ -Uncomplicated Side effects of treatment? @ -No Exacerbation, Progression, or Severe Exacerbation? @ -No Poses a threat to life or bodily function? How? (Chest pain, [place], [place], pneumonia, PE, COPD, DKA, ARF, appy, cholecystitis, CVA, Diverticulitis, Homicidal, Suicidal, threat to staff... and all critical care pts) @ -No - Radiology Data Noncontrast right hip CT: 1. Minimally displaced right greater trochanter fracture. No intra-articular extension. No additional fractures. 2. Diffuse osseous demineralization. 3. Moderate degeneration changes of the spine. Disposition Clinical Impression: Fall, Fracture of greater trochanter of right femur Disposition: HOME SELF-CARE Condition: Stable Instructions (If sedation given, give patient instructions): Fall Prevention (ED), Leg Fracture (ED) Additional Instructions: Return to the ER immediately should you develop new or worsening pain or symptoms. Follow-up closely with Dr. Olivas (orthopedic surgery) in his clinic. Is patient prescribed a controlled substance at d/c from ED?: No Referrals: Oli Lewis DO [Primary Care Provider] - 1-2 days Nicola Olivas DO [Doctor of Osteopathic Medicine] - 1-2 days Time of Disposition: 13:11
--- NOTE | 2025-01-19 12:54 | CT ---
EXAMINATION TYPE: CT hip RT wo con DATE OF EXAM: 01/19/2025 12:39 PM COMPARISON: None CLINICAL INDICATION: Female, 74 years old with history of fall yesterday, right greater trochanter fx on XR; [facility], fall yesterday, right greater trochanter fx on XR TECHNIQUE: Axial images were obtained of the CT hip RT wo con, Additional coronal and sagittal reform atted images and soft tissue and bone window were obtained for review. 3-D reconstruction was created on a separate workstation. Contrast used: mL of , (None if empty) Oral contrast used: (None if empty) CT DLP: 335.7 mGycm, Automated exposure control for dose reduction was used. FINDINGS: Diffuse osseous demineralization limits evaluation. There is a minimally displaced right gr eater trochanter fracture. e no intra-articular extension. No additional fractures identified. Athero sclerosis of the arterial vascular. Degeneration changes of the spine. No lymphadenopathy. No acute i ntraparenchymal process. IMPRESSION: 1. Minimally displaced right greater trochanter fracture. No intra-articular extension. No additiona l fractures. 2. Diffuse osseous demineralization. 3. Moderate degeneration changes of the spine. [facility], , 01/19/2025 12:52 PM
[2025-01-19] MEDS: ACET/COD 300 MG/30 MG STARTER PACK 6 TAB BTL PO STA (13:18)
[2025-01-19 13:26] VITALS: BP 131/78; PULSE 74; RESP 18; TEMP 97.8
== END 2025-01-19 13:27 | disposition home or self-care (01) ==
LOC: EC 12:01
DX: S72.111A Displaced fracture of greater trochanter of right femur, initial encounter for closed fracture (principal); Z87.891 Personal history of nicotine dependence; W18.30XA Fall on same level, unspecified, initial encounter
CPT/HCPCS: 99283

== ENCOUNTER 2025-01-21 03:06 | Inpatient (IN) | payer MEDICARE ==
[2025-01-21] MEDS: MORPHINE SULFATE 4 MG/ML SYRINGE IV STA ×2 (03:27→05:38)
[2025-01-21 04:01] LABS: Basophils # (A) 0.03 10*3/uL (0.00-0.10); Basophils % (A) 0.2 %; Eosinophils % (A) 0.8 %; HCT 35.4 % (37.2-46.3); HGB 12.3 g/dL (12.0-15.0); Lymphocytes % (A) 9.1 %; MCH 31.5 pg (27.0-32.0); MCHC 34.7 g/dL (32.0-37.0); MCV 90.8 fL (80.0-97.0); Mean Platelet Volume 8.9 fL (9.5-12.2); Monocytes # (A) 0.92 10*3/uL (0.20-1.00); Neutrophils # (A) 10.82 10*3/uL (1.80-7.70); Neutrophils % (A) 82.4 %; Platelet Count 272 10*3/uL (140-440); RDW 13.2 % (11.5-14.5); WBC 13.14 10*3/uL (4.50-10.00)
[2025-01-21 04:10] LABS: INR 0.9 (<1.2); Partial Thromboplastin Time 23.5 sec (22.0-30.0); Prothrombin Time 10.3 sec (10.0-12.5)
[2025-01-21 04:12] LABS: ALT 19 U/L (4-34); AST 31 U/L (14-36); African American GFR (CKD) >90 (>60 ml/min/1.73 sqM); Albumin 3.8 g/dL (3.5-5.0); Alkaline Phosphatase 87 U/L (38-126); Anion Gap 9 mmol/L; Blood Urea Nitrogen 20 mg/dL (7-17); Calcium 9.6 mg/dL (8.4-10.2); Carbon Dioxide 27 mmol/L (22-30); Chloride 102 mmol/L (98-107); Glucose 137 mg/dL (74-99); Non-African American GFR(CKD) 85 (>60 ml/min/1.73 sqM); Potassium 3.7 mmol/L (3.5-5.1); Sodium 138 mmol/L (137-145); Total Bilirubin 0.9 mg/dL (0.2-1.3); Total Protein 6.2 g/dL (6.3-8.2)
--- NOTE | 2025-01-21 04:28 | ED ---
Fall HPI - General Chief Complaint: Fall Stated Complaint: Fall Time Seen by Provider: 01/21/25 03:12 Source: patient, EMS Mode of arrival: EMS - History of Present Illness Initial Comments: Patient is a 74-year-old woman arriving by EMS to have evaluation for right hip pain. The patient states that she had gotten up to use the bathroom and fallen. She experienced sharp right hip pain and has subsequently not been able to walk or put weight on the right hip. The patient states that she did have recent fall with a fracture to the right hip that did not require surgery. Denies other injuries in the fall. No head or neck, no back, chest or abdomen pain. Denies injury to the other extremities. 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 Fall Witnessed: no Place Fall Occurred: home Loss of Consciousness: none Prolonged Down Time?: no Symptoms Prior to Fall: none Location - Extremities: Right: Thigh Severity: severe Quality: sharp Context: tripped/slipped Associated Symptoms: unable to walk - Related Data Home Medications Medication Instructions Recorded Confirmed Cetirizine HCl [Zyrtec] 10 mg PO DAILY PRN 11/17/24 01/21/25 Cholecalciferol [Vitamin D3 (25 25 mcg PO DAILY 11/17/24 01/21/25 Mcg = 1000 Iu)] Multivitamins, Thera [Multivitamin 1 tab PO DAILY 11/17/24 01/21/25 (formulary)] oxyBUTYnin chloride [Ditropan] 5 mg PO TID 11/17/24 01/21/25 Simvastatin [Zocor] 20 mg PO HS 11/19/24 01/21/25 Previous Rx's Medication Instructions Recorded Aspirin 325 mg PO BID #60 tab 01/23/25 HYDROcodone/APAP 5-325MG [[place] 1 each PO Q6HR PRN #8 tab 01/23/25 5-325] HYDROcodone/APAP 5-325MG [[place] 5] 1 each PO Q8HR PRN #21 tab 01/23/25 polyethylene glycoL 3350 [Miralax] 17 gm PO HS packet 01/23/25 Allergies Allergy/AdvReac Type Severity Reaction Status Date / Time No Known Allergies Allergy Verified 01/21/25 15:47 Review of Systems ROS Statement: Those systems with pertinent positive or pertinent negative responses have been documented in the HPI. ROS Other: All systems not noted in ROS Statement are negative. Constitutional: Denies: fever, chills, weakness Respiratory: Denies: cough, dyspnea Cardiovascular: Denies: chest pain, palpitations, edema Gastrointestinal: Denies: abdominal pain, nausea, vomiting, diarrhea Genitourinary: Denies: dysuria, hematuria Musculoskeletal: Reports: as per HPI, arthralgia. Denies: back pain Skin: Denies: rash Neurological: Denies: headache, weakness, numbness Past Medical History Past Medical History: Neurologic Disorder Additional Past Medical History / Comment(s): MS History of Any Multi-Drug Resistant Organisms: None Reported Past Surgical History: Section, Orthopedic Surgery, Tonsillectomy Additional Past Surgical History / Comment(s): left knee replacement Past Anesthesia/Blood Transfusion Reactions: No Reported Reaction Past Psychological History: No Psychological Hx Reported Smoking Status: Former smoker Past Alcohol Use History: Rare Past Drug Use History: None Reported General Exam Limitations: no limitations General appearance: alert, in no apparent distress Head exam: Present: atraumatic, normocephalic Eye exam: Present: normal appearance. Absent: scleral icterus, conjunctival injection ENT exam: Present: normal oropharynx Neck exam: Present: normal inspection, full ROM. Absent: tenderness, meningismus Respiratory exam: Present: normal lung sounds bilaterally. Absent: respiratory distress, wheezes, rales, rhonchi, stridor, accessory muscle use Cardiovascular Exam: Present: regular rate, normal rhythm, normal heart sounds. Absent: systolic murmur, diastolic murmur, rubs, gallop GI/Abdominal exam: Present: soft. Absent: distended, tenderness, guarding, rebound, rigid, mass Right Hip exam: Present: tenderness. Absent: full ROM, swelling, abrasion, laceration, ecchymosis, deformity, crepitus, dislocation Upper Leg exam: Present: normal inspection, full ROM. Absent: tenderness, swelling Knee exam: Present: normal inspection, full ROM. Absent: tenderness, swelling Lower Leg exam: Present: normal inspection, full ROM. Absent: tenderness, swelling Ankle exam: Present: normal inspection, full ROM. Absent: tenderness, swelling Foot/Toe exam: Present: normal inspection, full ROM. Absent: tenderness, swelling Neurovascular tendon exam: Present: no vascular compromise. Absent: pulse deficit, abnormal cap refill, motor deficit, sensory deficit, tendon deficit Back exam: Present: normal inspection. Absent: vertebral tenderness Neurological exam: Present: alert. Absent: motor sensory deficit Skin exam: Present: warm, dry, intact, normal color. Absent: rash Course Vital Signs 01/21/25 01/21/25 01/21/25 03:10 04:20 05:37 Temperature 98.1 F Pulse Rate 93 70 84 Pulse Rate [ Pulse Oximetery ] Respiratory 18 18 18 Rate Blood Pressure 130/98 128/70 124/86 Blood Pressure [Left Arm Supine] O2 Sat by Pulse 99 95 95 Oximetry 01/21/25 01/21/25 01/21/25 07:36 09:00 11:00 Temperature Pulse Rate 70 86 85 Pulse Rate [ Pulse Oximetery ] Respiratory 18 18 18 Rate Blood Pressure 113/80 125/78 136/67 Blood Pressure [Left Arm Supine] O2 Sat by Pulse 97 96 97 Oximetry 01/21/25 01/21/25 01/21/25 12:00 13:00 15:00 Temperature Pulse Rate 76 73 69 Pulse Rate [ Pulse Oximetery ] Respiratory 18 20 16 Rate Blood Pressure 106/84 127/72 121/71 Blood Pressure [Left Arm Supine] O2 Sat by Pulse 97 98 97 Oximetry 01/21/25 15:38 Temperature 99.2 F Pulse Rate Pulse Rate [ 74 Pulse Oximetery ] Respiratory 18 Rate Blood Pressure Blood Pressure 137/62 [Left Arm Supine] O2 Sat by Pulse 96 Oximetry Medical Decision Making - Medical Decision Making The patient had x-ray of the right hip that I interpreted as showing intertrochanteric fracture. Was pt. sent in by a medical professional or institution (, PA, ARCHITECTURAL DESIGN LECTURER, urgent care, hospital, or snf...) When possible be specific @ -[No] Did you speak to anyone other than the patient for history (EMS, parent, family, police, friend...)? What history was obtained from this source @ -[No] Did you review nursing and triage notes (agree or disagree)? Why? @ -[I reviewed and agree with nursing and triage notes] Were old charts reviewed (outside hosp., previous admission, EMS record, old EKG, old radiological studies, urgent care reports/EKG's, snf records)? Report findings @ -[No old charts were reviewed] Differential Diagnosis (chest pain, altered mental status, abdominal pain women, abdominal pain men, vaginal bleeding, weakness, fever, dyspnea, syncope, headache, dizziness, GI bleed, back pain, seizure, CVA, palpatations, mental health, musculoskeletal)? @ -[Differential Musculoskeletal Muscular strain, contusion, ligament sprain, fracture, arthritis, septic arthritis, bursitis, cellulitis, muscle spasm, nerve compression, DVT, arterial occlusion, herpes zoster, electrolyte abnormality, tumor.... This is not meant to be in all inclusive list EKG interpreted by me (3pts min.). @ -[As above] X-rays interpreted by me (1pt min.). @ -[I interpreted as above CT interpreted by me (1pt min.). @ -[None done] U/S interpreted by me (1pt. min.). @ -[None done] What testing was considered but not performed or refused? (CT, X-rays, U/S, labs)? Why? @ -[None] What meds were considered but not given or refused? Why? @ -[None] Did you discuss the management of the patient with other professionals (professionals i.e. , PA, ARCHITECTURAL DESIGN LECTURER, lab, RT, psych nurse, social media marketing manager, tool dresser, teacher, property utilization officer, case making machine operator)? Give summary @ -[Case discussed with the orthopedic surgeon who will admit anticipating possible surgery. Was smoking cessation discussed for >3mins.? @ -[No] Was critical care preformed (if so, how long)? @ -[No] Were there social determinants of health that impacted care today? How? (Homelessness, low income, unemployed, alcoholism, drug addiction, transportation, low edu. Level, literacy, decrease access to med. care, retirement, rehab)? @ -[No] Was there de-escalation of care discussed even if they declined (Discuss DNR or withdrawal of care, Hospice)? DNR status @ -[No] What co-morbidities impacted this encounter? (DM, HTN, Smoking, COPD, CAD, Cancer, CVA, ARF, Chemo, Hep., AIDS, mental health diagnosis, sleep apnea, morbid obesity)? @ -[None] Was patient admitted / discharged? Hospital course, mention meds given and route, prescriptions, significant lab abnormalities, going to OR and other pertinent info. @ -[Patient is 74-year-old woman here after fall found to have hip fracture, and will be admitted for probable surgery. Undiagnosed new problem with uncertain prognosis? @ -[No] Drug Therapy requiring intensive monitoring for toxicity (Heparin, Nitro, Insulin, Cardizem)? @ -[No] Were any procedures done? @ -[No] Diagnosis/symptom? @ -[Acute fall injury Right intertrochanteric hip fracture Acute, or Chronic, or Acute on Chronic? @ -[Acute Uncomplicated (without systemic symptoms) or Complicated (systemic symptoms)? @ -[Uncomplicated Side effects of treatment? @ -[No] Exacerbation, Progression, or Severe Exacerbation? @ -[No] Poses a threat to life or bodily function? How? (Chest pain, [place], [place], pneumonia, PE, COPD, DKA, ARF, appy, cholecystitis, CVA, Diverticulitis, Homicidal, Suicidal, threat to staff... and all critical care pts) @ -[No] All treatments are based on ideal body weight as in ED triage - Lab Data Result diagrams: 01/23/25 03:16 01/23/25 03:16 Lab Results 01/21/25 01/21/25 01/21/25 Range/Units 03:48 03:48 03:48 WBC 13.14 H (4.50-10.00) 10*3/uL RBC 3.90 L (4.10-5.20) 10*6/uL Hgb 12.3 (12.0-15.0) g/dL Hct 35.4 L (37.2-46.3) % MCV 90.8 (80.0-97.0) fL MCH 31.5 (27.0-32.0) pg MCHC 34.7 (32.0-37.0) g/dL Plt Count 272 (140-440) 10*3/uL MPV 8.9 L (9.5-12.2) fL Immature Gran % (Auto) 0.5 % Neutrophils % 82.4 % Lymphocytes % 9.1 % Monocytes % 7.0 % Eosinophils % 0.8 % Basophils % 0.2 % Immature Gran # 0.07 H (0.00-0.04) 10*3/uL Neutrophils # 10.82 H (1.80-7.70) 10*3/uL Lymphocytes # 1.20 (0.90-5.00) 10*3/uL Monocytes # 0.92 (0.20-1.00) 10*3/uL Eosinophils # 0.10 (0.04-0.35) 10*3/uL Basophils # 0.03 (0.00-0.10) 10*3/uL PT 10.3 (10.0-12.5) sec INR 0.9 (<1.2) APTT 23.5 (22.0-30.0) sec Sodium 138 (137-145) mmol/L Potassium 3.7 (3.5-5.1) mmol/L Chloride 102 (98-107) mmol/L Carbon Dioxide 27 (22-30) mmol/L Anion Gap 9 mmol/L BUN 20 H (7-17) mg/dL Creatinine 0.71 (0.52-1.04) mg/dL Est GFR (CKD-EPI)AfAm >90 (>60 ml/min/1.73 sqM) Est GFR (CKD-EPI)NonAf 85 (>60 ml/min/1.73 sqM) Glucose 137 H (74-99) mg/dL Calcium 9.6 (8.4-10.2) mg/dL Total Bilirubin 0.9 (0.2-1.3) mg/dL AST 31 (14-36) U/L ALT 19 (4-34) U/L Alkaline Phosphatase 87 (38-126) U/L Total Protein 6.2 L (6.3-8.2) g/dL Albumin 3.8 (3.5-5.0) g/dL - EKG Data -: EKG Interpreted by [facility] EKG shows normal: sinus rhythm, axis (Normal), intervals (Normal), ST-T waves (Normal) Rate: normal (Rate 66 bpm) Interpretation: LVH (Voltage criteria) Disposition Clinical Impression: Intertrochanteric fracture of right hip Disposition: ADMITTED IP TO THIS [facility] Condition: Stable Is patient prescribed a controlled substance at d/c from ED?: No
--- NOTE | 2025-01-21 05:13 | XR ---
EXAM: XR Right Hip With Pelvis When Performed, 1 View CLINICAL HISTORY: ITS.REASON XR Reason: fall injury TECHNIQUE: Frontal view of the right hip with pelvis when performed. COMPARISON: No relevant prior studies available. FINDINGS: Bones/joints: Findings concerning for a intertrochanteric fracture of the right femur. Degenerative changes are seen in the spine and hips. No dislocation. Soft tissues: Soft tissue swelling is seen surrounding the right hip. IMPRESSION: Intertrochanteric fracture of the right femur
[2025-01-21] MEDS ORDERED: NALOXONE 0.4 MG/ML 1 ML VIAL IV PRN ×2 (06:52→18:31)
[2025-01-21] MEDS ORDERED: ACETAMINOPHEN TAB 325 MG TAB PO PRN (06:52)
[2025-01-21] MEDS ORDERED: QUEtiapine 25 MG TAB PO PRN (06:54)
[2025-01-21] MEDS: SODIUM CHLORIDE 0.9% 1,000 ML IV SCH (07:32)
--- NOTE | 2025-01-21 08:48 | XR ---
EXAMINATION TYPE: XR chest 1V portable DATE OF EXAM: 01/21/2025 8:22 AM COMPARISON: 11/17/2024. CLINICAL INDICATION: Female, 74 years old with history of preoperative screening; [facility] TECHNIQUE: XR chest 1V portable Frontal view of the chest. FINDINGS: Lungs/Pleura: There is no evidence of pleural effusion, focal consolidation, or pneumothorax. Pulmonary vascularity: Unremarkable. Heart/mediastinum: Cardiomediastinal silhouette is unremarkable. Musculoskeletal: No acute osseous pathology. Other findings: None IMPRESSION: Chronic changes without acute pulmonary process. No significant change from prior. [facility], , 01/21/2025 8:45 AM
[2025-01-21] MEDS: HYDROmorphone 0.5 MG/0.5 ML SYRINGE IVP STA (09:02)
[2025-01-21] MEDS: FAMOTIDINE 20 MG TAB PO SCH (09:10)
[2025-01-21] MEDS ORDERED: LORATADINE 10 MG TAB PO PRN (09:42)
[2025-01-21] MEDS: oxyBUTYnin chloride 5 MG TAB PO SCH (10:12)
--- NOTE | 2025-01-21 11:15 | P.CONS ---
History of Present Illness - Reason for Consult Consult date: 01/21/25 Medical Clearance and Medical Management Requesting physician: Nicola Olivas - History of Present Illness History of Presenting Illness: Patient is a very pleasant 74-year-old female with a past medical history of multiple sclerosis and hyperlipidemia. She presented to the emergency department status post mechanical fall at home. Patient reports baseline ambulating with a cane and she ambulated to restroom without her cane and stumbled resulting in her tripping and falling onto her right hip. Patient reports sudden onset pain in her right hip and inability to ambulate. She is unclear if she hit her head but denies having any headache and denies having any loss of consciousness. Patient denies sustaining any other injuries during fall and reports only pain in his right hip. Upon arrival to our facility, patient underwent evaluation in the emergency department. Vital signs upon arrival show blood pressure 130/98, heart rate 93, respiratory rate 18, temp 98.1 F, and SpO2 of 99% on room air. EKG completed showing normal sinus rhythm at 66 bpm with no significant ST abnormalities upon personal review and interpretation. Chest x-ray completed showing chronic changes but negative for acute cardiopulmonary process. X-ray right hip revealing intertrochanteric fracture of the left right femur. Labs completed and reviewed. CBC showing mild leukocytosis with WBC count of 13.14. Coagulation profile normal findings. BMP showing mild prerenal azotemia with BUN of 20 otherwise normal findings. Blood glucose was 137. Calcium was 9.6. Liver profile unremarkable with exception of low total protein of 6.2. Patient was admitted under orthopedic surgery team and we were consulted for presurgical clearance and medical management throughout hospitalization. Review of systems: Pertinent positives and negatives as discussed in HPI, a complete review of systems was performed and all other systems are negative. Physical exam: Vital signs reviewed and stable. General: Nontoxic, no distress and appears stated age. Derm: Skin warm and dry, normal coloration for ethnicity. Head: Atraumatic, normocephalic and symmetric. Eyes: EOM's intact, no lid lag, and anicteric sclera Mouth: no lip lesions, mucus membranes moist Cardiovascular: regular rate and rhythm with normal S1S2, no murmur, positive posterior tibial pulses bilaterally, and cap refill < 2 seconds. Lungs: Respirations even, regular, and unlabored on room air. Lungs CTA bilaterally, no rhonchi, no rales, no wheezing, and no accessory muscle usage. Abdominal: soft, nontender to palpation, no guarding, no appreciable organomegaly Ext: No gross muscle atrophy, no edema, no contractures. Right lower extremity elevated on pillows with knee bent. Sensation is intact movement intact of right ankle and foot. Neuro: Speech clear, face symmetrical and CN II-XII grossly intact with no noted focal neuro deficits Psych: Alert and oriented to person, place, time, and situation. Appropriate and pleasant affect. Assessment and Plan of Care: Preoperative clearance Right intertrochanteric femur fracture -METS score less than 4 as pt ambulates with a cane at baseline and does not typically walk long distances or use the stairs, however she does report being fully independent of her activities of daily living. -NSQIP score calculated show patient blood risk 6.2% with average risk being 10% of serious complications, below average risk of 0.4% with average risk being 1.2% for cardiac complications, and below average risk of at 0.4% with average risk being 1.7%. - Patient is medically optimized to undergo planned ORIF with right hip intramedullary screw placement. She is at average to below average risk to undergo surgical intervention but secondary to her history of MS and monthly immunomodulators infusions she is at increased risk for postoperative complications including infections, readmissions, and delayed healing. Multiple Sclerosis - Patient reports longstanding history of multiple sclerosis and follows outpatient for monthly immunomodulator infusions. Patient unable to state name of medication infused and after review and discussion with pharmacist we were unable to locate. -Depending when next dose of immunomodulator infusion is due, patient may need to postpone next dosing is with her MS and current immunomodulators infusions it does place her at risk for postoperative infection and delayed healing. Hyperlipidemia Continue daily medication regimen with atorvastatin 10 mg nightly. Data and imaging reviewed: -As stated above in HPI. Thank you for allowing us to participate in the care of this pleasant patient. Do not hesitate to contact us with questions. Someone can be reached from the [facility] hospitalist group all hours of the day at [phone] or via [email or web address]. Patient was seen independently by Nurse Practitioner. This document was prepared using [employer] dictation software. Please allow for errors in population geneticist while rare they do occur. Ferdinand Flor NP rendered care for this patient independently, reviewed the findings and plan as documented in the note above and agree with plan. I did not physically speak with or examine the patient on this date. Past Medical History Past Medical History: Neurologic Disorder Additional Past Medical History / Comment(s): MS History of Any Multi-Drug Resistant Organisms: None Reported Past Surgical History: Section, Orthopedic Surgery, Tonsillectomy Additional Past Surgical History / Comment(s): left knee replacement Past Anesthesia/Blood Transfusion Reactions: No Reported Reaction Past Psychological History: No Psychological Hx Reported Smoking Status: Former smoker Past Alcohol Use History: Rare Past Drug Use History: None Reported Medications and Allergies Home Medications Medication Instructions Recorded Confirmed Type Cetirizine HCl [Zyrtec] 10 mg PO DAILY PRN 11/17/24 01/21/25 History Cholecalciferol [Vitamin D3 (25 25 mcg PO DAILY 11/17/24 01/21/25 History Mcg = 1000 Iu)] Multivitamins, Thera [Multivitamin 1 tab PO DAILY 11/17/24 01/21/25 History (formulary)] oxyBUTYnin chloride [Ditropan] 5 mg PO TID 11/17/24 01/21/25 History Simvastatin [Zocor] 20 mg PO HS 11/19/24 01/21/25 History oxyCODONE-APAP 7.5-325MG [Percocet 1 tab PO DAILY PRN 01/21/25 01/21/25 History 7.5-325 mg] Allergies Allergy/AdvReac Type Severity Reaction Status Date / Time No Known Allergies Allergy Verified 01/21/25 15:47 Physical Exam Vitals: Vital Signs Temp Pulse Resp BP Pulse Ox 01/21/25 09:00 86 18 125/78 96 01/21/25 07:36 70 18 113/80 97 01/21/25 05:37 84 18 124/86 95 01/21/25 04:20 70 18 128/70 95 01/21/25 03:10 98.1 F 93 18 130/98 99 Intake and Output 01/20/25 01/21/25 01/21/25 22:59 06:59 14:59 Other: Weight 56.699 kg Results CBC & Chem 7: 01/21/25 03:48 01/21/25 03:48 Labs: Abnormal Lab Results - Last 24 Hours (Table) 01/21/25 01/21/25 Range/Units 03:48 03:48 WBC 13.14 H (4.50-10.00) 10*3/uL RBC 3.90 L (4.10-5.20) 10*6/uL Hct 35.4 L (37.2-46.3) % MPV 8.9 L (9.5-12.2) fL Immature Gran # 0.07 H (0.00-0.04) 10*3/uL Neutrophils # 10.82 H (1.80-7.70) 10*3/uL BUN 20 H (7-17) mg/dL Glucose 137 H (74-99) mg/dL Total Protein 6.2 L (6.3-8.2) g/dL
--- NOTE | 2025-01-21 11:33 | P.HPOR ---
History of Present Illness H&P Date: 01/21/25 Chief Complaint: Right intertrochanteric femur fracture This is a 74-year-old female with past medical history of MS which she takes Harriman 10 for at home as needed, status post left TKA in 2008, former smoker, who presented to the [facility] emergency department on 01/21/2025 via EMS for evaluation of right hip pain. The patient stated they tripped and fell early in the morning trying to go to the bathroom. They state they had a tumbling fall and did not fall very hard but had right hip pain after and were not able to ambulate after. They state they might have hit their head. They deny LOC. The patient stated they live at home with her and does her own shopping. The patient stated they use a cane at base line. The patient stated they did not have prior hip pain. The patient stated they do not take blood thinners. The patient states they have isolated right hip pain. Patient denied chest pain and shortness or breath. 01/21/2025 x-rays of the right hip and pelvis revealed a right intertrochanteric femur fracture. Appears to have bilateral chronic abnormality of the femoral heads. Patient was admitted to orthopedics with consult to internal medicine for medical management. Patient was seen in the emergency department this morning. She denies any other injuries. Past Medical History Past Medical History: Neurologic Disorder Additional Past Medical History / Comment(s): MS History of Any Multi-Drug Resistant Organisms: None Reported Past Surgical History: Section, Orthopedic Surgery, Tonsillectomy Additional Past Surgical History / Comment(s): left knee replacement Past Anesthesia/Blood Transfusion Reactions: No Reported Reaction Past Psychological History: No Psychological Hx Reported Smoking Status: Former smoker Past Alcohol Use History: Rare Past Drug Use History: None Reported Medications and Allergies Home Medications Medication Instructions Recorded Confirmed Type Cetirizine HCl [Zyrtec] 10 mg PO DAILY PRN 11/17/24 01/21/25 History Cholecalciferol [Vitamin D3 (25 25 mcg PO DAILY 11/17/24 01/21/25 History Mcg = 1000 Iu)] Multivitamins, Thera [Multivitamin 1 tab PO DAILY 11/17/24 01/21/25 History (formulary)] oxyBUTYnin chloride [Ditropan] 5 mg PO TID 11/17/24 01/21/25 History Simvastatin [Zocor] 20 mg PO HS 11/19/24 01/21/25 History oxyCODONE-APAP 7.5-325MG [Percocet 1 tab PO DAILY PRN 01/21/25 01/21/25 History 7.5-325 mg] Allergies Allergy/AdvReac Type Severity Reaction Status Date / Time No Known Allergies Allergy Verified 01/21/25 08:38 Physical Examination Osteopathic Statement: *. No significant issues noted on an osteopathic structural exam other than those noted in the History and Physical/Consult. Patient lying in bed. No acute distress. Head is normocephalic and atraumatic. No pain to palpation over the cervical spine or paraspinal muscles. Bilateral upper extremity exam: Inspection: No sign of obvious deformity. Palpation: Nontender to palpation over bilateral clavicle, scapula, shoulder, humerus, elbow, forearm, wrist, hand, or fingers. Vascular: 2+ radial pulse. Capillary refill under 2 seconds in all digits. Sensation: grossly intact to light touch. Bilateral lower extremity exam: Inspection: The right lower extremity is externally rotated. No sign of infection, scars, or open lesions over the anterior or lateral hip. There is a large skin tag over the posterior lateral hip. Palpation: Tenderness over the lateral and anterior hip. Range of motion: Patient had pain with any attempt of passive range of motion of the right hip. Patient had no pain with passive range of motion of the left hip. No pain with right hip logroll. Negative right hip Stinchfield test. Calves were soft to compression, negative Homans' sign. Vascular: Dorsalis pedis pulse was palpable bilaterally. Capillary refill under 2 seconds in all toes. Sensation: grossly intact to light touch throughout the bilateral lower extremities. Results - Labs Labs: Abnormal Lab Results - Last 24 Hours (Table) 01/21/25 01/21/25 Range/Units 03:48 03:48 WBC 13.14 H (4.50-10.00) 10*3/uL RBC 3.90 L (4.10-5.20) 10*6/uL Hct 35.4 L (37.2-46.3) % MPV 8.9 L (9.5-12.2) fL Immature Gran # 0.07 H (0.00-0.04) 10*3/uL Neutrophils # 10.82 H (1.80-7.70) 10*3/uL BUN 20 H (7-17) mg/dL Glucose 137 H (74-99) mg/dL Total Protein 6.2 L (6.3-8.2) g/dL H & H 01/21/25 Range/Units 03:48 Hgb 12.3 (12.0-15.0) g/dL Hct 35.4 L (37.2-46.3) % Coagulation 01/21/25 Range/Units 03:48 INR 0.9 (<1.2) Result Diagrams: 01/21/25 03:48 01/21/25 03:48 Assessment and Plan Assessment: Right intertrochanteric femur fracture Right hip pain MS with chronic pain taking oral Harriman 10 at baseline Multiple medical problems Plan: The clinical and x-ray findings were discussed with the patient. The case was discussed with Dr. Olivas. Treatment options were discussed and surgical intervention is recommended. We discussed the surgical plan of intramedullary hip nail as well as the expected postoperative course. Risks and benefits were reviewed including (but not limited to) the risks of infection, bleeding, blood clots, anesthesia-related complications and possible need for additional surgery. Questions were invited and answered. The patient expressed understanding and wishes to proceed with surgery. The patient will be kept on bedrest. Continue PRN pain management. NPO We will await pre-op clearance from internal medicine. Patient is seen and examined at bedside. I agree with the above dictation. She sustained an injury and has an acute right intertrochanteric hip fracture. There are some chronic degenerative changes at her bilateral hips which were not giving her significant symptoms in the past. I think that her acute issues stem from the hip fracture and that her best course of treatment is to pursue surgical intervention with internal fixation w ith intramedullary hip screw for her right hip versus open reduction internal fixation. I discussed this at length with her and I discussed the risk complications alternatives and benefits of surgery. I discussed the nature of her injury and the risk of permanent change for her decrease of her mobility change in the status of her overall mobility the risk of bleeding risk infection risk and over the surgery risk of decreased loss of motion loss of function hardware failure nerve damage as well as problems with anesthesia. The patient elects to proceed with surgical intervention and has signed informed consent for surgery at her right hip. We will keep her n.p.o. and plan for surgery as soon as the operating room is available and she is cleared with medicine.
[2025-01-21] MEDS: MORPHINE SULFATE 4 MG/ML SYRINGE IV PRN (15:08)
[2025-01-21] MEDS: IV FLUID CONTINUATION 1,000 ML IV ONE (15:37)
[2025-01-21] MEDS: ONDANSETRON 4 MG/2 ML VIAL IVP PRN (15:51)
[2025-01-21] MEDS: DEXAMETHASONE SOD PHOSPHATE 4 MG/ML 1 ML VIAL IVP STA (15:52)
[2025-01-21] MEDS: MIDAZOLAM 2 MG/2 ML VIAL IV ONE (16:49)
[2025-01-21] MEDS ORDERED: PHENYLEPHRINE 10 MG/ML VIAL ONE (16:53)
[2025-01-21] MEDS ORDERED: SUGAMMADEX SODIUM 100 MG/ML SYR IV ONE (16:53)
[2025-01-21] MEDS ORDERED: ROCURONIUM 10 MG/ML (5 ML VIAL) IV ONE (16:53)
[2025-01-21] MEDS ORDERED: fentaNYL (PF) 50 MCG/ML 2 ML AMP ONE (16:53)
[2025-01-21] MEDS ORDERED: LIDOCAINE 1% INJ 10MG/ML (20 ML MDV) ONE (16:53)
[2025-01-21] MEDS ORDERED: PROPOFOL 10 MG/ML 20 ML VIAL IV ONE (16:53)
[2025-01-21] MEDS ORDERED: ePHEDrine 50 MG/ML 1 ML VIAL ONE (16:53)
[2025-01-21] MEDS: SODIUM CHLORIDE 0.9% 100 ML with ceFAZolin 2,000 MG IV ONE (16:58)
[2025-01-21] MEDS: ceFAZolin 1,000 MG in SODIUM CHLORIDE 0.9% 1,000 ML IRRIGATION ONE (17:29)
[2025-01-21] MEDS: LACTATED RINGERS 1,000 ML IV ONE (17:44)
--- NOTE | 2025-01-21 18:13 | FL ---
EXAMINATION TYPE: FL guidance operating room, XR Hip Complete RT DATE OF EXAM: 01/21/2025 6:07 PM COMPARISON: Pre Operative Images if available both CT/MRI or plain film CLINICAL INDICATION: Female, 74 years old with history of IM Nail Rt-Hip; TECHNIQUE: FL guidance operating room, XR Hip Complete RT, multiple fluoroscopic images provided for procedure. DAP: 0.9894 mGym2 Gycm2 uGym2 cGycm2 or equivalent. FINDINGS: Fluoroscopic images demonstrate hardware in appropriate position. Hardware appears intact. No immedia te complication identified. IMPRESSION: 1. No evidence for intraoperative complication. 2. Please see the operative/procedural note for further details. [facility], , 01/21/2025 6:11 PM
[2025-01-21] MEDS ORDERED: HYDROmorphone 0.5 MG/0.5 ML SYRINGE IVP PRN (18:33)
--- NOTE | 2025-01-21 18:39 | P.OP ---
Date of Procedure: 01/21/25 Preoperative Diagnosis: Right hip intertrochanteric femur fracture, displaced and angulated, acute status post fall Inability to ambulate due to fall Right lower extremity pain Postoperative Diagnosis: Same Anesthesia: GETA Pathology: other (Right proximal femur reamings to pathology) Condition: stable Disposition: PACU Description of Procedure: Preoperative diagnosis: Right hip intertrochanteric femur fracture, displaced and angulated, acute status post fall Inability to ambulate due to fall Right lower extremity pain Postoperative diagnosis: Same Procedure: intertrochanteric hip screw placement right proximal femur Use of fluoroscopic guidance Closed reduction Surgeon: Dr. Deisy Mcdaniels.: assistant refinery operator who is present that the entire the case persistence during positioning dissection exposure placement of hardware and closure Anesthesia: General Per Dr. Lalit Stauffer Estimated blood loss: Proximately 150 cc Components implanted: [employer] InterTAN 11.5 x 125 degrees with 95 mm lag screw and 90 mm locking screw and a 27.5 distal locking screw Disposition: To recovery room in good stable condition Operative indications The patient sustained a injury and suffered a hip fracture at the inter- trochanteric area of her femur which was displaced and angulated. We were involved in the case in regard to his hip fracture. Patient has history of MS. She normally ambulates on her own but has difficulty with her balance on occasion. She lives at home with her who is currently in skilled nu rsing facility due to hip fracture last week. After evaluation it was determined that they would be a candidate for hip internal fixation and stabilization via surgical intervention. This would give them the best chance of mobilization and ambulation. We discussed the range of treatment options from conservative to surgical. They elected proceed with surgical intervention. We answered their questions to the best of our ability healing which they can understand. They signed an informed consent. Operative summary After obtaining informed consent evaluation by anesthesia, preoperative eval uation and clearance for medical service, the patient was identified and prepped Bhatt area and the surgical site was marked. There brought to the operating room where the given appropriate anesthesia by the anesthesia department in standard fashion without any complications. Once the anesthesia was established we were able to position the patient. The patient was placed on a fracture table with a well-padded perineal post. The operative side at the right hip was placed in a foot harrison stirrup which was well-padded well molded and placed in gentle in-line traction. The nonoperative leg was placed in a padded stirrup. C-arm was brought in and we performed a closed reduction technique at the hip. We are able to get good alignment good position of the intertrochanteric fracture with gentle reduction techniques and traction utilizing the fracture table. Once patient was well positioned lower extremity was prepped and draped in normal standard sterile fashion. An appropriate keystone protocol and timeout was completed and were able to proceed with surgery. He started point just proximal to the greater trochanter was established and a median incision approximately 2 inches in length approximately to the greater trochanter. I dissected down through the fascia and I was able to expose the tip of the greater trochanter. A sharp starting hole was established at the tip of the greater trochanter near the junction of the anterior and middle third. Positioning was confirmed with C-arm guidance. I was able to start the awl into the bone and then use a guidepin at the starting point establish down to the level of the lesser trochanter at the intramedullary space. I then used a starting reamer for the greater trochanter placed over the guidepin and reamed down appropriately under C-arm guidance. I was unable to place a guidepin into the intramedullary aspect of the femur and then reamed appropriately to the appropriate length. The positioning was confirmed on C-arm guidance. With the femur appropriately reamed I then chose the appropriate size intramedullary silvestre which was connected to the appropriate jig. The jig was checked for alignment. The area was copiously irrigated and suctioned dry and we're able place the silvestre at intramedullary space through the starting hole appropriately. It was seated down for appropriate position to align the leg pain into the femoral neck and head. A second incision was established at the site for the placement of the lag screw area and the guide was established at the lateral aspect of the femur and a guidepin was drilled into the femoral neck and head and near center center position. With this appropriate alignment and position where a reamer over the guidepin making sure not to penetrate the articular surface. The position was confirmed on C-arm guidance in AP and lateral positions. With this established we were able to place the appropriate size lag screw after measuring. Lag screw was placed into the femoral neck and head good alignment good position with excellent bony purchase. It was appropriately aligned and we placed a locking screw through the silvestre appropriately and checked that the position was established. I was able to drill and place the compression screw immediately adjacent and inferior to the lag screw which gave good compression across the fracture site in good alignment and position. There is no evidence of breach through the femoral head With the area in good position able place a distal locking screw. We utilized the guide sleeve a separate incision was made at the skin. The guide sleeve was placed in the lateral aspect of the femur and the distal locking screw hole was established through the femur and distal locking hole of the intramedullary silvestre. It was measured appropriately and a distal locking screw was placed in good alignment and good position with excellent bony purchase. The position was checked to make sure it was through the appropriate hole in the intramedullary silvestre. With this established we're able to remove the jig completely from the silvestre and final images were taken which showed excellent alignment and position of the hardware and the fracture. With the silvestre in place and the fracture stable, although the incision sites were copiously irrigated and suctioned dry. Good hemostasis was maintained. Deep fascial layers were closed with #1 Vicryl. Subcu tissue was closed with 2-0 Vicryl. Subcuticular tissues closed with 3-0 Vicryl. Was are cleaned and dried with dressed with Mastisol and Steri-Strips Telfa for a force and tape. Drapes were broken down, the hip was held in stable position with the post being removed safely once the positioning was stabilized. The patient was then transferred back to their hospital bed being careful to maintain the hip and C- spine alignment and airway. Once stable to patient was transferred back to the postanesthesia care unit to be readmitted for pain control and DVT prophylaxis medical management and monitoring and mobilization we will continue follow patient closely throughout their postoperative course.
[2025-01-21 21:52] LABS: Basophils # (A) 0.02 10*3/uL (0.00-0.10); Basophils % (A) 0.1 %; HCT 33.4 % (37.2-46.3); HGB 11.2 g/dL (12.0-15.0); Lymphocytes # (A) 0.33 10*3/uL (0.90-5.00); Lymphocytes % (A) 2.1 %; MCH 31.8 pg (27.0-32.0); MCHC 33.5 g/dL (32.0-37.0); MCV 94.9 fL (80.0-97.0); Mean Platelet Volume 9.4 fL (9.5-12.2); Monocytes # (A) 0.26 10*3/uL (0.20-1.00); Monocytes % (A) 1.7 %; Neutrophils # (A) 14.82 10*3/uL (1.80-7.70); Neutrophils % (A) 95.6 %; Platelet Count 232 10*3/uL (140-440); RBC 3.52 10*6/uL (4.10-5.20); RDW 13.4 % (11.5-14.5); WBC 15.51 10*3/uL (4.50-10.00)
[2025-01-21] MEDS: ceFAZolin 2 GM in DEXTROSE 5% IN WATER 50 ML IVPB SCH (22:28)
[2025-01-21] MEDS: polyethylene glycoL 3350 17 GM POWD.PACK PO SCH (22:28)
[2025-01-21] MEDS: ATORVASTATIN 10 MG TAB PO SCH (22:28)
[2025-01-22] MEDS: HYDROmorphone 1 MG/ML 1 ML SYRINGE IVP PRN (01:44)
[2025-01-22] MEDS: HYDROcodone/APAP 5-325MG 1 EACH TAB PO PRN (05:58)
[2025-01-22] MEDS ORDERED: HYDROmorphone 0.5 MG/0.5 ML SYRINGE IVP PRN (07:00)
[2025-01-22] MEDS: MULTIVITAMINS, THERA 1 EACH TAB PO SCH (07:55)
--- NOTE | 2025-01-22 07:58 | P.PN ---
Progress Note - Text Progress Note Date: 01/22/25 Postoperative day #1 Patient is seen and examined today at bedside. The patient has some pain around the surgical site as expected at her right hip. She is not having other complaints of pain pain is being controlled with medication. She has not yet been out of bed. The Bhatt is intact. She is tolerating her breakfast well. Physical Exam Afebrile with stable vital signs Abdomen is soft nontender. Chest has good excursion deep and space expiration The incision site is clean dry and intact. No erythema there is no purulence. Her thigh and calf are soft. She has significant pain still with motion at her right leg but she is moving her foot and toes well Extremities have not had neurologic change from prior to surgery. Calves and thighs were soft nontender without evidence of DVT. Assessment/Plan Postoperative day #1 status post intramedullary hip screw for a right hip inte rtrochanteric femur fracture Patient is progressing as expected from the surgery. She has a long history of chronic pain and has been having her pain controlled with Dr. Osorio's office chronically. She will return to this after this acute issue with her hip. This may make it somewhat difficult for her to control the pain. We need to start her mobility and get her out of bed today. She should try to remain 50% weightbearing for the next few weeks. We will continue to increase the patient's mobilization with therapy. We will continue pain control with oral or IV medications. She will likely need nursing home placement posthospitalization and case management will work on that we'll continue to follow patient closely.
[2025-01-22] MEDS ORDERED: oxyCODONE-APAP 7.5-325MG 1 EACH TAB PO PRN (08:06)
[2025-01-22] MEDS: ASPIRIN 325 MG TAB PO SCH (08:19)
[2025-01-22] MEDS: CHOLECALCIFEROL 25 MCG (1000 IU) TABLET PO SCH (08:19)
[2025-01-22] MEDS ORDERED: ASPIRIN 325 MG TAB PO SCH (09:00)
[2025-01-22 13:40] LABS: Appearance,Urine Clear (Clear); Bacteria,Urine Rare /hpf; Bilirubin,Urine Negative (Negative); Blood,Urine Small (Negative); Color,Urine Colorless; Glucose,Urine (UA) Negative (Negative); Ketones,Urine Negative (Negative); Leukocyte Esterase,Urine Moderate (Negative); Mucus,Urine Rare /hpf; Nitrite,Urine Negative (Negative); PH, Urine 5.5 (5.0-8.0); Protein,Urine Negative (Negative); RBC,Urine 3 /hpf (0-5); Specific Gravity,Urine 1.013 (1.001-1.035); Squamous Epithelial Cell,Urine <1 /hpf (0-4); Urobilinogen,Urine <2.0 mg/dL (<2.0); WBC,Urine 13 /hpf (0-5)
--- NOTE | 2025-01-22 17:35 | P.PN ---
Subjective Progress Note Date: 01/22/25 Hospital Course: Patient is a very pleasant 74-year-old female with a past medical history of multiple sclerosis and hyperlipidemia. She presented to the emergency department status post mechanical fall at home. Patient reports baseline ambulating with a cane and she ambulated to restroom without her cane and stumbled resulting in her tripping and falling onto her right hip. Patient reports sudden onset pain in her right hip and inability to ambulate. She is unclear if she hit her head but denies having any headache and denies having any loss of consciousness. Patient denies sustaining any other injuries during fall and reports only pain in his right hip. Upon arrival to our facility, patient underwent evaluation in the emergency department. Vital signs upon arrival show blood pressure 130/98, heart rate 93, respiratory rate 18, temp 98.1 F, and SpO2 of 99% on room air. EKG completed showing normal sinus rhythm at 66 bpm with no significant ST abnormalities upon personal review and interpretation. Chest x-ray completed showing chronic changes but negative for acute cardiopulmonary process. X-ray right hip revealing intertrochanteric fracture of the left right femur. Labs completed and reviewed. CBC showing mild leukocytosis with WBC count of 13.14. Coagulation profile normal findings. BMP showing mild prerenal azotemia with BUN of 20 otherwise normal findings. Blood glucose was 137. Calcium was 9.6. Liver profile unremarkable with exception of low total protein of 6.2. Patient was admitted under orthopedic surgery team and we were consulted for presurgical clearance and medical management throughout hospitalization. Physical exam: Patient seen and fully evaluated at bedside this morning. She is postoperative day 1 and appears to be doing well. She reports pain is "much much better". Patient denies having any dizziness, lightheadedness, chest pain, palpitations, shortness of breath, cough or congestion, abdominal pain, or any other complaints. Bhatt catheter remains in place, likely remove later today versus tomorrow pending orthopedic recommendations. Vital signs reviewed and stable. General: Nontoxic, no distress and appears stated age. Derm: Skin warm and dry, normal coloration for ethnicity. Head: Atraumatic, normocephalic and symmetric. Eyes: EOM's intact, no lid lag, and anicteric sclera Mouth: no lip lesions, mucus membranes moist Cardiovascular: regular rate and rhythm with normal S1S2, no murmur, positive posterior tibial pulses bilaterally, and cap refill < 2 seconds. Lungs: Respirations even, regular, and unlabored on room air. Lungs CTA bilaterally, no rhonchi, no rales, no wheezing, and no accessory muscle usage. Abdominal: soft, nontender to palpation, no guarding, no appreciable organomegaly Ext: No gross muscle atrophy, no edema, no contractures. Neuro: Speech clear, face symmetrical and CN II-XII grossly intact with no noted focal neuro deficits Psych: Alert and oriented to person, place, time, and situation. Appropriate and pleasant affect. Assessment and Plan of Care: Status post ORIF with right hip intramedullary screw placement Right intertrochanteric femur fracture - Management per primary admitting orthopedic surgery team including DVT prophylaxis, pain management, wound/dressing management, weightbearing, and PT/OT Multiple Sclerosis - Patient reports longstanding history of multiple sclerosis and follows outpatient for monthly immunomodulator infusions. Patient unable to state name of medication infused and after review and discussion with pharmacist we were unable to locate. Patient's son at bedside reports patient missed her last dose and is behind on her infusions and states that she has not had immunomodulator infusion in approximately 6 months. -Depending when next dose of immunomodulator infusion is due, patient may need to postpone next dosing is with her MS and current immunomodulators infusions it does place her at risk for postoperative infection and delayed healing. Hyperlipidemia Continue daily medication regimen with atorvastatin 10 mg nightly. Data and imaging reviewed: Labs completed and reviewed. CBC showing leukocytosis with WBC count of 15.51 and acute postoperative blood loss anemia with hemoglobin stable at 11.2. Vital signs reviewed. Blood pressures soft this morning at 94/54, heart rate 64, respiratory rate 16, temp 98.4 F, and SpO2 of 94% on room air. Thank you for allowing us to participate in the care of this pleasant patient. Do not hesitate to contact us with questions. Someone can be reached from the [facility] hospitalist group all hours of the day at [phone] or via [employer] serve. Patient was seen independently by Nurse Practitioner. This document was prepared using [email or web address] dictation software. Please allow for errors in copywriting intern while rare they do occur. Ferdinand Flor NP rendered care for this patient independently, reviewed the findings and plan as documented in the note above and agree with plan. I did not physically speak with or examine the patient on this date. Objective - Vital Signs Vital signs: Vital Signs Temp 98.4 F 01/22/25 07:24 Pulse 64 01/22/25 07:24 Resp 16 01/22/25 07:24 BP 94/54 01/22/25 07:24 Pulse Ox 94 L 01/22/25 07:24 FiO2 Intake & Output 01/21/25 01/22/25 01/22/25 18:59 06:59 18:59 Intake Total 901 900 Output Total 700 200 Balance 201 700 Weight 56.699 kg Intake: IV 901 150 Intake, IV Titration 750 Amount Sodium Chloride 0.9% 1, 700 000 ml @ 75 mls/hr IV . [id number] [facility] Rx#:[id number] ceFAZolin 2 gm In 50 Dextrose 5% in Water 50 ml @ 100 mls/hr IVPB Q8HR [facility] Rx#:[id number] Output: Urine 550 200 Estimated Blood Loss 150 Other: Voiding Method Indwelling Catheter # Voids 1 - Labs CBC & Chem 7: 01/21/25 21:09 01/21/25 03:48 Labs: Abnormal Lab Results - Last 24 Hours (Table) 01/21/25 Range/Units 21:09 WBC 15.51 H (4.50-10.00) 10*3/uL RBC 3.52 L (4.10-5.20) 10*6/uL Hgb 11.2 L (12.0-15.0) g/dL Hct 33.4 L (37.2-46.3) % MPV 9.4 L (9.5-12.2) fL Immature Gran # 0.08 H (0.00-0.04) 10*3/uL Neutrophils # 14.82 H (1.80-7.70) 10*3/uL Lymphocytes # 0.33 L (0.90-5.00) 10*3/uL Eosinophils # 0.00 L (0.04-0.35) 10*3/uL
[2025-01-22 20:28] VITALS: TEMP 98.4
[2025-01-23 01:31] VITALS: RESP 16
[2025-01-23 08:24] LABS: HGB 9.5 g/dL (12.0-15.0); MCH 30.6 pg (27.0-32.0); MCHC 32.8 g/dL (32.0-37.0); MCV 93.5 FL (80.0-97.0); Mean Platelet Volume 9.9 FL (9.5-12.2); NRBC Per 100 WBC 0 X 10*3/uL (0.00-0.01); Platelet Count 251 X 10*3/uL (140-440); RDW 13.6 % (11.5-14.5); WBC 9.76 X 10*3/uL (4.50-10.00)
[2025-01-23 08:37] VITALS: BP 111/76; PULSE 76
[2025-01-23 08:47] LABS: BUN/Creat Ratio 15.67 Ratio (12.00-20.00); Blood Urea Nitrogen 9.4 mg/dL (9.0-27.0); Calcium 8.5 mg/dL (8.7-10.3); Carbon Dioxide 25.4 mmol/L (21.6-31.8); Chloride 107 mmol/L (96-109); Glucose 98 mg/dL (70-110); Potassium 4.1 mmol/L (3.5-5.5); Sodium 140 mmol/L (135-145)
--- NOTE | 2025-01-23 11:44 | P.DS ---
Providers Date of admission: 01/21/25 06:54 Expected date of discharge: 01/23/25 Attending physician: Nicola Olivas Consults: 01/21/25 09:26 Consult Physician Stat Consulting Provider: Zafar Hilario Consult Reason/Comments: surgical clearance and medical management Do you want consulting provider notified?: Yes Primary care physician: Stated None - Discharge Diagnosis(es) (1) Intertrochanteric fracture of right hip Current Visit: Yes Status: Acute (2) Hyperlipidemia Current Visit: Yes Status: Acute (3) Right hip pain Current Visit: Yes Status: Acute (4) Fall Current Visit: No Status: Acute (5) Multiple sclerosis Current Visit: No Status: Acute Hospital Course: This is a pleasant 74-year-old female who presented with right intertrochanteric hip fracture status post fall. She was admitted for further treatment evaluation. She is status post right hip intramedullary screw fixation for right intertrochanteric hip fracture. She is having improvement of her pain postoperatively. She has better range of motion of her right lower extremity postoperatively. She is then able to fully ambulate on the right lower extremity. She is 50% weightbearing with assistance of a walker. Her is currently in a rehabilitation facility after sustaining hip fracture himself. She does not feel she can care for herself at home. She is willing to discharge to a rehabilitation facility. Patient feels she would be stable for discharge. The patient tolerated the procedure well and did well postoperatively. Condition on day of discharge stable. Patient will be discharged to [facility] once insurance authorization has been approved. search engine optimization manager is working on authorization and states this could be obtained today. Patient currently denies any nausea, vomiting, fever, or chills. Patient is eating and voiding freely without difficulty. Patient must keep surgical dressing over the right hip clean, dry, and intact. Do not get dressing over the right hip wet. Dressing may be removed in 3 days and shower without a dressing at that time. Patient should refrain from driving until at least after their first follow-up appointment in the office. Patient will remain 50% weightbearing on the right lower extremity and may ambulate with the assistance of a walker. Patient must need clearance by medicine prior to discharge. Patient does take Percocet 7.5 mg / 325 mg in the outpatient setting as prescribed through her pain management clinic. We will currently plan to prescribe short-term narcotic medication for her acute postoperative pain. An "Opiod Start Talking" Form has been signed and placed in the patient's chart. A prescription has been written for hydrocodone 5 mg / 325 mg, 1 tab, 3 times daily, as needed for acute pain, dispense #21. Prescription is written, signed, and placed in the patient's chart for discharge to rehabilitation facility. Patient is also given a prescription for aspirin 325 mg, 1 tab, twice daily, dispense #60 which patient should take until completion postoperatively for postoperative anticoagulation. Patient's other medical diagnoses include multiple sclerosis and hyperlipidemia. Physical Exam on day of discharge: Status post surgical day number 2 Patient is examined lying in bed Patient is awake and alert, and oriented 3 Vital signs stable Abdomen soft nontender No signs or symptoms of DVT; no calf pain Lower extremity cuffs not currently in place bilaterally Dressing of the right hip is clean, dry, and intact; no erythema, purulence, or signs of infection No pain with palpation over the surgical sites at the right hip Full range of motion of the right ankle with dorsiflexion and plantarflexion Neurovascularly intact bilateral lower extremities Procedures: Right intramedullary nail fixation for right intertrochanteric hip fracture Patient Condition at Discharge: Stable Plan - Discharge Summary Discharge Rx Participant: Yes New Discharge Prescriptions: New Aspirin 325 mg PO BID #60 tab HYDROcodone/APAP 5-325MG [[place] 5] 1 each PO Q8HR PRN #21 tab PRN Reason: Pain No Action oxyBUTYnin chloride [Ditropan] 5 mg PO TID Cetirizine HCl [Zyrtec] 10 mg PO DAILY PRN PRN Reason: Allergy Symptoms Simvastatin [Zocor] 20 mg PO HS Multivitamins, Thera [Multivitamin (formulary)] 1 tab PO DAILY Cholecalciferol [Vitamin D3 (25 Mcg = 1000 Iu)] 25 mcg PO DAILY oxyCODONE-APAP 7.5-325MG [Percocet 7.5-325 mg] 1 tab PO DAILY PRN PRN Reason: Pain Discharge Medication List Cetirizine HCl [Zyrtec] 10 mg PO DAILY PRN 11/17/24 [History] Cholecalciferol [Vitamin D3 (25 Mcg = 1000 Iu)] 25 mcg PO DAILY 11/17/24 [History] Multivitamins, Thera [Multivitamin (formulary)] 1 tab PO DAILY 11/17/24 [History] oxyBUTYnin chloride [Ditropan] 5 mg PO TID 11/17/24 [History] Simvastatin [Zocor] 20 mg PO HS 11/19/24 [History] oxyCODONE-APAP 7.5-325MG [Percocet 7.5-325 mg] 1 tab PO DAILY PRN 01/21/25 [History] Aspirin 325 mg PO BID #60 tab 01/23/25 [Rx] HYDROcodone/APAP 5-325MG [[place] 5] 1 each PO Q8HR PRN #21 tab 01/23/25 [Rx] Follow up Appointment(s)/Referral(s): Juan Dela Cruz DO [REFERRING] - 1 Week (Please call to schedule first available appointment for establishing care with new PCP. ) Dea Onofre, [NON-STAFF] - As Needed Taurus Allan PAC [PHYSICIAN SITE ACQUISITION MANAGER] - 2 Weeks (Patient may follow-up with Taurus Allan PA-C or Dr. Miguel Olivas at [facility] in 2-3 weeks following discharge. ) Activity/Diet/Wound Care/Special Instructions: 1. 50% weightbearing on the right lower extremity with the assistance of a walker 2. Keep dressing over the right hip clean, dry, and intact over the next 3 days 3. Dressing may be removed on 01/26/2025 and if surgical incision site remain clean, dry, and intact, patient may shower without a dressing at that time 4. May apply ice for comfort over the right hip as needed 5. Take medications as prescribed Discharge Disposition: TRANSFER TO SNF/ECF
--- NOTE | 2025-01-23 15:39 | P.PN ---
Subjective Progress Note Date: 01/23/25 Hospital Course: Patient is a very pleasant 74-year-old female with a past medical history of multiple sclerosis and hyperlipidemia. She presented to the emergency department status post mechanical fall at home. Patient reports baseline ambulating with a cane and she ambulated to restroom without her cane and stumbled resulting in her tripping and falling onto her right hip. Patient reports sudden onset pain in her right hip and inability to ambulate. She is unclear if she hit her head but denies having any headache and denies having any loss of consciousness. Patient denies sustaining any other injuries during fall and reports only pain in his right hip. Upon arrival to our facility, patient underwent evaluation in the emergency department. Vital signs upon arrival show blood pressure 130/98, heart rate 93, respiratory rate 18, temp 98.1 F, and SpO2 of 99% on room air. EKG completed showing normal sinus rhythm at 66 bpm with no significant ST abnormalities upon personal review and interpretation. Chest x-ray completed showing chronic changes but negative for acute cardiopulmonary process. X-ray right hip revealing intertrochanteric fracture of the left right femur. Labs completed and reviewed. CBC showing mild leukocytosis with WBC count of 13.14. Coagulation profile normal findings. BMP showing mild prerenal azotemia with BUN of 20 otherwise normal findings. Blood glucose was 137. Calcium was 9.6. Liver profile unremarkable with exception of low total protein of 6.2. Patient was admitted under orthopedic surgery team and we were consulted for presurgical clearance and medical management throughout hospitalization. Physical exam: Patient seen and fully evaluated at bedside this morning. She is postoperative day 2 and appears to be doing well. Patient reports having a difficult night with mild to moderate pain but currently states is feeling better. She denies having any headache, lightheadedness, dizziness, chest pain, palpitations, shortness of breath, abdominal pain, nausea, vomiting, or any other complaints. She reports urinating without difficulties and passing flatus. She denies bowel movement since surgery. Vital signs reviewed and stable. General: Nontoxic, no distress and appears stated age. Derm: Skin warm and dry, normal coloration for ethnicity. Head: Atraumatic, normocephalic and symmetric. Eyes: EOM's intact, no lid lag, and anicteric sclera Mouth: no lip lesions, mucus membranes moist Cardiovascular: regular rate and rhythm with normal S1S2, no murmur, positive posterior tibial pulses bilaterally, and cap refill < 2 seconds. Lungs: Respirations even, regular, and unlabored on room air. Lungs CTA bilaterally, no rhonchi, no rales, no wheezing, and no accessory muscle usage. Abdominal: soft, nontender to palpation, no guarding, no appreciable organomegaly Ext: No gross muscle atrophy, no edema, no contractures. Movement and sensation intact. Neuro: Speech clear, face symmetrical and CN II-XII grossly intact with no noted focal neuro deficits Psych: Alert and oriented to person, place, time, and situation. Appropriate and pleasant affect. Assessment and Plan of Care: Status post ORIF with right hip intramedullary screw placement Right intertrochanteric femur fracture - Management per primary admitting orthopedic surgery team including DVT prophylaxis, pain management, wound/dressing management, weightbearing, and PT/OT Acute postoperative blood loss anemia. -Preoperative hemoglobin 12.3 currently at 9.5. This is a stable and expected finding. No active bleeding noted. No need for transfusion or further intervention at this time Multiple Sclerosis - Patient reports longstanding history of multiple sclerosis and follows outpatient for monthly immunomodulator infusions. Patient unable to state name of medication infused and after review and discussion with pharmacist we were unable to locate. Patient's son at bedside reports patient missed her last dose and is behind on her infusions and states that she has not had immunomodulator infusion in approximately 6 months. -Depending when next dose of immunomodulator infusion is due, patient may need to postpone next dosing is with her MS and current immunomodulators infusions it does place her at risk for postoperative infection and delayed healing. Hyperlipidemia Continue daily medication regimen with atorvastatin 10 mg nightly. Data and imaging reviewed: Labs completed and reviewed. CBC showing resolution of leukocytosis with WBC count of 9.76. Hemoglobin stable at 9.5. BMP unremarkable. Blood glucose 98. Magnesium 2.0. Vital signs reviewed. Blood pressure 111/76, heart rate 76, respiratory rate 16, temp 98.4 F, and SpO2 of 94% on room air. Thank you for allowing us to participate in the care of this pleasant patient. Do not hesitate to contact us with questions. Someone can be reached from the [facility] hospitalist group all hours of the day at [phone] or via [employer]. Patient was seen independently by Nurse Practitioner. This document was prepared using [employer] dictation software. Please allow for errors in outdoor pursuits instructor while rare they do occur. Ferdinand Flor LOFTSMAN/WOMAN rendered care for this patient independently, reviewed the findings and plan as documented in the note above and agree with plan. I did not physically speak with or examine the patient on this date. Objective - Vital Signs Vital signs: Vital Signs Temp 98.4 F 01/23/25 06:51 Pulse 76 01/23/25 06:51 Resp 16 01/23/25 06:51 BP 111/76 01/23/25 06:51 Pulse Ox 94 L 01/23/25 06:51 FiO2 Intake & Output 01/22/25 01/23/25 01/23/25 18:59 06:59 18:59 Output Total 1250 Balance -1250 Output: Urine 1250 Uretheral (Bhatt) 325 Other: Voiding Method Indwelling Catheter Bedside Commode # Voids 0 1 - Labs CBC & Chem 7: 01/23/25 03:16 01/23/25 03:16 Labs: Abnormal Lab Results - Last 24 Hours (Table) 01/22/25 01/23/25 01/23/25 Range/Units 13:04 03:16 03:16 RBC 3.10 L (4.10-5.20) X 10*6/uL Hgb 9.5 L (12.0-15.0) g/dL Hct 29.0 L (37.2-46.3) % Calcium 8.5 L (8.7-10.3) mg/dL Urine Blood Small H (Negative) Ur Leukocyte Esterase Moderate H (Negative) Urine WBC 13 H (0-5) /hpf Urine Bacteria Rare H (None) /hpf Urine Mucus Rare H (None) /hpf
== END 2025-01-23 15:37 | DRG 481 ==
LOC: EC 03:06 → 4SSUR 06:54
PROVIDERS: ADMIT Orthopaedic Surgery Orthopaedic Surgery of the Spine; ATTEND Orthopaedic Surgery Orthopaedic Surgery of the Spine
PROC: 0QS636Z Reposition Right Upper Femur with Intramedullary Internal Fixation Device, Percutaneous Approach (ICD-10-PCS; principal; 2025-01-21 12:40)
DX: S72.141A Displaced intertrochanteric fracture of right femur, initial encounter for closed fracture (principal); D62 Acute posthemorrhagic anemia; G35 Multiple sclerosis; D72.829 Elevated white blood cell count, unspecified; W01.0XXA Fall on same level from slipping, tripping and stumbling without subsequent striking against object, initial encounter; Y92.019 Unspecified place in single-family (private) house as the place of occurrence of the external cause; R79.89 Other specified abnormal findings of blood chemistry; Z96.652 Presence of left artificial knee joint; E78.5 Hyperlipidemia, unspecified; G89.29 Other chronic pain; Z79.899 Other long term (current) drug therapy; Z87.891 Personal history of nicotine dependence; Z79.891 Long term (current) use of opiate analgesic
CPT/HCPCS: 36415; 71045; 73502; 80048; 80053; 81001; 83735; 85025; 85027; 85610; 85730; 88307; 88311; 93005; 96361; 96374; 96375; 96376; 99285

== ENCOUNTER 2025-02-23 12:11 | Emergency (ER) | payer MEDICARE ==
[2025-02-23 12:31] VITALS: TEMP 97.9
--- NOTE | 2025-02-23 12:53 | ED ---
Recheck HPI - General Chief Complaint: Recheck/Abnormal Lab/Rx Stated Complaint: R knee pain Time Seen by Provider: 02/23/25 12:36 Source: patient, RN notes reviewed Mode of arrival: ambulatory Limitations: no limitations - History of Present Illness Initial Comments: 74-year-old female presenting to emergency room with complaints of right hip and leg pain that has been worsening over the past month. Patient states that she had hip surgery after a fall where she had to have a plate multiple screws placed in her right femur has been experiencing pain since. Patient denies recent falls or injuries. She denies loss of bladder or bowel control or saddle anesthesias. Denies lumbar back pain. Additionally, patient has a prescription from her neurologist where she was instructed to leave a urine sample. Patient denies hematuria, increased urinary frequency or urgency, dysuria, fevers or chills. She states that she had physical therapy starting on Tuesday. - Related Data Home Medications Medication Instructions Recorded Confirmed Cetirizine HCl [Zyrtec] 10 mg PO DAILY PRN 11/17/24 01/21/25 Cholecalciferol [Vitamin D3 (25 25 mcg PO DAILY 11/17/24 01/21/25 Mcg = 1000 Iu)] Multivitamins, Thera [Multivitamin 1 tab PO DAILY 11/17/24 01/21/25 (formulary)] oxyBUTYnin chloride [Ditropan] 5 mg PO TID 11/17/24 01/21/25 Simvastatin [Zocor] 20 mg PO HS 11/19/24 01/21/25 Previous Rx's Medication Instructions Recorded Aspirin 325 mg PO BID #60 tab 01/23/25 HYDROcodone/APAP 5-325MG [[place] 1 each PO Q6HR PRN #8 tab 01/23/25 5-325] HYDROcodone/APAP 5-325MG [[place] 5] 1 each PO Q8HR PRN #21 tab 01/23/25 polyethylene glycoL 3350 [Miralax] 17 gm PO HS packet 01/23/25 Cephalexin [Keflex] 500 mg PO Q6HR #40 cap 02/23/25 Allergies Allergy/AdvReac Type Severity Reaction Status Date / Time No Known Allergies Allergy Verified 02/23/25 12:31 Review of Systems ROS Statement: Those systems with pertinent positive or pertinent negative responses have been documented in the HPI. ROS Other: All systems not noted in ROS Statement are negative. Past Medical History Past Medical History: Neurologic Disorder Additional Past Medical History / Comment(s): MS History of Any Multi-Drug Resistant Organisms: None Reported Past Surgical History: Section, Orthopedic Surgery, Tonsillectomy Additional Past Surgical History / Comment(s): left knee replacement, Hip Past Anesthesia/Blood Transfusion Reactions: No Reported Reaction Past Psychological History: No Psychological Hx Reported Smoking Status: Former smoker Past Alcohol Use History: Rare Past Drug Use History: None Reported General Exam Limitations: no limitations General appearance: alert, in no apparent distress ENT exam: Present: normal exam, mucous membranes moist Neck exam: Present: normal inspection. Absent: tenderness, meningismus, lymphadenopathy Respiratory exam: Present: normal lung sounds bilaterally. Absent: respiratory distress, wheezes, rales, rhonchi, stridor Cardiovascular Exam: Present: regular rate, normal rhythm, normal heart sounds. Absent: systolic murmur, diastolic murmur, rubs, gallop, clicks GI/Abdominal exam: Present: soft, normal bowel sounds. Absent: distended, tenderness, guarding, rebound, rigid Right Hip exam: Present: full ROM, tenderness. Absent: swelling, ecchymosis, deformity Upper Leg exam: Present: tenderness. Absent: swelling, ecchymosis, deformity Back exam: Present: normal inspection Course Vital Signs 02/23/25 02/23/25 12:29 15:00 Temperature 97.9 F 97.9 F Pulse Rate 77 74 Respiratory 20 16 Rate Blood Pressure 118/75 124/69 O2 Sat by Pulse 99 99 Oximetry Medical Decision Making - Medical Decision Making Was pt. sent in by a medical professional or institution (, PA, SOLAR INSTALLER TECHNICIAN, urgent care, hospital, or usp...) When possible be specific @ -No Did you speak to anyone other than the patient for history (EMS, parent, family, police, friend...)? What history was obtained from this source @ -Son at bedside states that patient's neurologist recommended she have a urinary sample completed to evaluate for urinary tract infection. Did you review nursing and triage notes (agree or disagree)? Why? @ -I reviewed and agree with nursing and triage notes Were old charts reviewed (outside hosp., previous admission, EMS record, old EKG, old radiological studies, urgent care reports/EKG's, usp records)? Report findings @ -No old charts were reviewed Differential Diagnosis (chest pain, altered mental status, abdominal pain women, abdominal pain men, vaginal bleeding, weakness, fever, dyspnea, syncope, headache, dizziness, GI bleed, back pain, seizure, CVA, palpatations, mental health, musculoskeletal)? @ -Differential Musculoskeletal Muscular strain, contusion, ligament sprain, fracture, arthritis, septic arthritis, bursitis, cellulitis, muscle spasm, nerve compression, DVT, arterial occlusion, herpes zoster, electrolyte abnormality, tumor.... This is not meant to be in all inclusive list EKG interpreted by me (3pts min.). @ -None X-rays interpreted by me (1pt min.). @ -X-ray imaging of the right hip/AP pelvis, and right femur reveals hip fixation hardware intact and in appropriate alignment with no evidence of acute fracture CT interpreted by me (1pt min.). @ -None done U/S interpreted by me (1pt. min.). @ -None done What testing was considered but not performed or refused? (CT, X-rays, U/S, labs)? Why? @ -None What meds were considered but not given or refused? Why? @ -None Did you discuss the management of the patient with other professionals (professionals i.e. , PA, SOLAR INSTALLER TECHNICIAN, lab, RT, psych nurse, school social worker, credit products officer, teacher, air defence officer, adult protective caseworker)? Give summary @ -No Was smoking cessation discussed for >3mins.? @ -No Was critical care preformed (if so, how long)? @ -No Were there social determinants of health that impacted care today? How? (Homelessness, low income, unemployed, alcoholism, drug addiction, transportation, low edu. Level, literacy, decrease access to med. care, half-way, rehab)? @ -No Was there de-escalation of care discussed even if they declined (Discuss DNR or withdrawal of care, Hospice)? DNR status @ -No What co-morbidities impacted this encounter? (DM, HTN, Smoking, COPD, CAD, Cancer, CVA, ARF, Chemo, Hep., AIDS, mental health diagnosis, sleep apnea, mor bid obesity)? @ -None Was patient admitted / discharged? Hospital course, mention meds given and route, prescriptions, significant lab abnormalities, going to OR and other pertinent info. @ -Discharge. 74-year-old female presents emergency room with complaints of right leg pain. Postsurgical incision is healing well with no signs of erythema or dehiscence. Patient is provided with pain medication. X-ray imaging of the hip, pelvis, femur no acute abnormality with hardware placed. Urine is concerning for infection including positive nitrates, moderate leukocytes and 22 white cells. Patient will be treated for urinary tract infection with Rocephin with outpatient prescription sent for Keflex. Urine is sent for culture. Case discussed with Dr. Oquendo Undiagnosed new problem with uncertain prognosis? @ -No Drug Therapy requiring intensive monitoring for toxicity (Heparin, Nitro, Insulin, Cardizem)? @ -No Were any procedures done? @ -No Diagnosis/symptom? @ -Urinary tract infection, right hip and leg pain Acute, or Chronic, or Acute on Chronic? @ -Acute Uncomplicated (without systemic symptoms) or Complicated (systemic symptoms)? @ -Uncomplicated Side effects of treatment? @ -No Exacerbation, Progression, or Severe Exacerbation? @ -No Poses a threat to life or bodily function? How? (Chest pain, [place], [place], pneumonia, PE, COPD, DKA, ARF, appy, cholecystitis, CVA, Diverticulitis, Homicidal, Suicidal, threat to staff... and all critical care pts) @ -No - Lab Data Lab Results 02/23/25 Range/Units 12:45 Urine Color Colorless Urine Appearance Cloudy H (Clear) Urine pH 7.0 (5.0-8.0) Ur Specific [place] 1.010 (1.001-1.035) Urine Protein Negative (Negative) Urine Glucose (UA) Negative (Negative) Urine Ketones Negative (Negative) Urine Blood Negative (Negative) Urine Nitrite Positive H (Negative) Urine Bilirubin Negative (Negative) Urine Urobilinogen <2.0 (<2.0) mg/dL Ur Leukocyte Esterase Moderate H (Negative) Urine RBC 3 (0-5) /hpf Urine WBC 22 H (0-5) /hpf Urine Bacteria Rare H (None) /hpf Urine Mucus Rare H (None) /hpf Disposition Clinical Impression: Right hip pain, UTI (urinary tract infection) Disposition: HOME SELF-CARE Condition: Stable Instructions (If sedation given, give patient instructions): Urinary Tract Infection in Women (ED), Hip Pain (ED) Additional Instructions: Please return to the Emergency Department if symptoms worsen or any other concerns. Prescriptions: Cephalexin [Keflex] 500 mg PO Q6HR #40 cap Is patient prescribed a controlled substance at d/c from ED?: No Referrals: None,Stated [Primary Care Provider] - 1-2 days Time of Disposition: 14:32
[2025-02-23 13:09] LABS: Appearance,Urine Cloudy (Clear); Bacteria,Urine Rare /hpf; Bilirubin,Urine Negative (Negative); Blood,Urine Negative (Negative); Color,Urine Colorless; Glucose,Urine (UA) Negative (Negative); Ketones,Urine Negative (Negative); Leukocyte Esterase,Urine Moderate (Negative); Mucus,Urine Rare /hpf; Nitrite,Urine Positive (Negative); Protein,Urine Negative (Negative); RBC,Urine 3 /hpf (0-5); Urobilinogen,Urine <2.0 mg/dL (<2.0); WBC,Urine 22 /hpf (0-5)
[2025-02-23] MEDS: MORPHINE SULFATE 4 MG/ML SYRINGE IM STA (13:14)
--- NOTE | 2025-02-23 13:47 | XR ---
EXAMINATION TYPE: XR Hip RT and AP Pelvis, XR femur RT DATE OF EXAM: 02/23/2025 1:30 PM COMPARISON: 01/21/2025. CLINICAL INDICATION: Female, 74 years old with history of pain, pain. TECHNIQUE: XR Hip RT and AP Pelvis, XR femur RT; hip was examined in the frontal and lateral projecti ons and a AP pelvis. Frontal and lateral views of the femur. FINDINGS: Post arthroplasty changes, hardware is intact, alignment is appropriate. No evidence of fra cture. No evidence of any acute osseous pathology or joint dislocation. There is mild joint space nain rowing and osteophyte formation left hip. Degeneration changes of the spine. Moderate degeneration ch anges and ureteric posterior osteophyte formation. IMPRESSION: 1. Hip fixation hardware with hardware intact and in appropriate alignment. No acute fracture. 2. Mild left hip osteoporosis. [facility], , 02/23/2025 1:45 PM
[2025-02-23] MEDS: cefTRIAXone 1,000 MG VIAL (IM USE) IM STA (14:54)
[2025-02-23 15:01] VITALS: BP 124/69; PULSE 74; RESP 16
== END 2025-02-23 15:02 | disposition home or self-care (01) ==
LOC: EC 12:11
DX: N39.0 Urinary tract infection, site not specified (principal); M25.551 Pain in right hip; Z87.891 Personal history of nicotine dependence
CPT/HCPCS: 81001; 87086; 73502; 73552; 99283; 96372 ×2; J2270; J0696

== ENCOUNTER → 2025-04-04 | Outpatient (CLI) | payer MEDICARE ==
--- NOTE | 2025-04-05 08:34 | MM ---
Reason for Exam: Screening (asymptomatic). Last mammogram was performed 1 year(s) and 4 month(s) ago. Patient History: Menarche at age 14. First Full-Term at age 21. Hysterectomy at age 44. Postmenopausal. Estrogen, from age 58 until age 64. 1989, Benign Excisional Biopsy on the left side. 05/16/2014, MG discontinued stereo core RT on the right side. Maternal aunt had breast cancer. Risk Values: Kandice 5 year model risk: 1.9%. NCI Lifetime model risk: 4.6%. Prior Study Comparison: 08/27/2021 Bilateral Screening Mammogram, [facility]. 09/28/2022 Bilateral MG 3D screening mammo w/cad, [facility]. 11/11/2023 Bilateral MG 3D screening mammo w/cad, [facility]. Tissue Density: There are scattered areas of fibroglandular density. Findings: Analyzed By CAD. Right breast: There is no suspicious group of microcalcifications or new suspicious mass. Left breast: There is no suspicious group of microcalcifications or new suspicious mass. Overall Assessment: Negative, BI-RAD 1 Management: Screening Mammogram of both breasts in [address] [facility] will attempt to contact patient to return for supplemental views and ultrasound if indicated. Patient should continue monthly self-breast exams. A clinical breast exam by your physician is recommended on an annual basis. This exam should not preclude additional follow-up of suspicious palpable abnormalities. Note on Kandice scores and lifetime risk: 1. A Kandice score greater than 3% is considered moderate risk. If this is the case, consider specialist referral to assess eligibility for a risk reducing agent. 2. If overall lifetime risk for the development of breast cancer is 20% or higher, the patient may qualify for future screening with alternating mammogram and breast MRI. [facility], , 04/05/2025 7:39 AM. Electronically signed and approved by: Rojas Dunn DO
== END | disposition home or self-care (01) ==
LOC: RADMAMWWP 16:12
PROVIDERS: ATTEND Family Medicine
DX: Z12.31 Encounter for screening mammogram for malignant neoplasm of breast (principal); R92.323 Mammographic fibroglandular density, bilateral breasts; Z78.0 Asymptomatic menopausal state; Z80.3 Family history of malignant neoplasm of breast
CPT/HCPCS: 77063; 77067